=== PATIENT | female | born 1935 | race Caucasian/White ===

== ENCOUNTER → 2017-04-09 | Outpatient (CLI) | payer MEDICARE, SELFPAY | PROVIDERS: Family Provider Family Medicine; Visit Provider Family Medicine | DX: M25.551 Pain in right hip (principal); M25.552 Pain in left hip | CPT/HCPCS: 73502 ==

== ENCOUNTER 2017-09-29 16:20 | Observation (INO) | payer MEDICARE, MEDICAID, SELFPAY ==
--- NOTE | 2017-09-29 15:31 | XR_ITS ---
XR hip RT 2-3V w/pelvis HISTORY: Posttraumatic pain ITS.REASON: FALL,RT LEG INJURY ORDERING PHYSICIAN: Jhon Mercado MD PATIENT AGE: 81 years COMPARISON: 04/09/2017 FINDINGS: There is an acute nondisplaced fracture involving the anterolateral aspect of the right greater trochanter. This is only well seen on the abduction on view. There is a bone plate present along the proximal aspect of the femur with prior fusion of the lumbosacral junction and extensive vascular calcification with a stent in the right SFA. In addition, there are old fractures of left superior and inferior pubic ramus. IMPRESSION: 1. Nondisplaced avulsion fracture of the right greater trochanter. Consider CT for further evaluation to determine the exact extent of the fracture and to exclude femoral neck involvement. 2. Old left superior and inferior pubic rami fractures
--- NOTE | 2017-09-29 15:31 | XR_ITS ---
XR tibia fibula RT 2V CLINICAL INDICATION: Pain following injury ITS.REASON: FALL,RT LEG INJURY ORDERING PHYSICIAN: Jhon Mercado MD PATIENT AGE: 81 years Comparison: None FINDINGS: There is a total knee prosthesis present. Mottled density involves the shaft of the tibia and may be postsurgical in nature. No acute fracture or dislocation evident. IMPRESSION: Prior total knee replacement with mottled density of the mid shaft of the tibia No acute fracture
[2017-09-29 16:43] VITALS: BMI 16.5
--- NOTE | 2017-09-29 17:28 | XR_ITS ---
XR chest portable HISTORY: History of pneumonia ITS.REASON: preop hip fx ORDERING PHYSICIAN: Jhon Mercado MD PATIENT AGE: 81 years COMPARISON: 12/17/2016 FINDINGS: Borderline cardiomegaly without failure. There is increased density in the right paratracheal region. This malalignment due to vascular ectasia however, a paratracheal mass is also considered. There is also a rounded area of increased density in the right lung base. Pulmonary mass cannot be excluded in the CP angle. Chest CT may be of further value. The remaining lungs are clear with chronic change. IMPRESSION: Possible pulmonary mass in the right lung base with vascular ectasia in the right paratracheal region versus paratracheal mass
--- NOTE | 2017-09-29 17:43 | HMH.ACPN2 ---
Internal Medicine - PN: Subj *Date: 09/29/17 *Time: 17:43 Interval history: This is a brief admission note on Hali Banuelos. Ms. Banuelos is an 81-year-old white female who was brought to the office by her daughter today with an initial request that she be admitted to the hospital because her family could no longer care for her at home. Pertinent history is that she fell approximately a week ago when she slid from a chair in her kitchen and landed on the floor hitting her right hip. She did not initially think she had any injury because she had no pain. The next day she began having pain in the right hip in the groin area and also in her lower leg. She had refused to come to the doctor until her daughter, Radha, arrived from [place] today and brought her to the office. She apparently lives with 2 sons, one of which is mentally challenged and the other who is quite ill with some type of acute abdominal infection and is being admitted to the hospital today. She therefore has no one to take care of her at home. Radha is recuperating from knee surgery and not able to care for either. She was brought to the office in a wheelchair. After being assessed it was clear that she was very debilitated. She was unable to rise from the wheelchair and even with help could not bear weight due to pain in her right leg. She was sent for outpatient x-rays and found to have a nondisplaced fracture of the right greater trochanter. She is being admitted at this time for further evaluation and orthopedic consultation. Exam I & O for Last 24 hours: Intake & Output 09/27/17 09/28/17 09/29/17 09/30/17 11:59 11:59 11:59 11:59 Weight 102 lb 6 oz Narrative: On current examination in the hospital bed she is lying calmly and appears in no acute distress. Her color is normal. She is oriented ?3. Chest reveals coarse breath sounds with a few rhonchi. No wheezes. Breath sounds are generally diminished. Heart is regular. Abdomen soft and nondistended with no unusual masses or tenderness. Lower extremities show trace pretibial edema. There is tenderness over the right greater trochanter. There is pain with movement of the right hip. Assessment and Plan (1) Closed right hip fracture Current visit: Yes Status: Acute Category: Medical Code(s): S72.001A - Fracture of unspecified part of neck of right femur, initial encounter for closed fracture (2) COPD (chronic obstructive pulmonary disease) Current visit: Yes Status: Acute Category: Medical Code(s): J44.9 - Chronic obstructive pulmonary disease, unspecified (3) Hypothyroidism Current visit: Yes Status: Acute Category: Medical Code(s): E03.9 - Hypothyroidism, unspecified (4) HBP (high blood pressure) Current visit: Yes Status: Acute Category: Medical Code(s): I10 - Essential (primary) hypertension (5) Hyperlipidemia Current visit: Yes Status: Acute Category: Medical Code(s): E78.5 - Hyperlipidemia, unspecified (6) Generalized osteoarthritis Current visit: Yes Status: Acute Category: Medical Code(s): M15.9 - Polyosteoarthritis, unspecified (7) Tobacco abuse Current visit: Yes Status: Acute Category: Medical Code(s): Z72.0 - Tobacco use (8) GERD (gastroesophageal reflux disease) Current visit: Yes Status: Acute Category: Medical Code(s): K21.9 - Gastro-esophageal reflux disease without esophagitis (9) PAD (peripheral artery disease) Current visit: Yes Status: Acute Category: Medical Code(s): I73.9 - Peripheral vascular disease, unspecified (10) Overactive bladder Current visit: Yes Status: Acute Category: Medical Code(s): N32.81 - Overactive bladder - Assessment and plan all Dx Assessment and Plan for all problems:: She is being admitted at this time for pain control and orthopedic consultation. Will obtain routine preoperative labs, chest x-ray, and EKG. We will review her home medications when availabl
--- NOTE | 2017-09-29 17:51 | P.PN_ITS ---
Internal Medicine - PN: Subj *Date: 09/29/17 *Time: 17:43 Interval history: This is a brief admission note on Hali Banuelos. Ms. Banuelos is an 81-year-old white female who was brought to the office by her daughter today with an initial request that she be admitted to the hospital because her family could no longer care for her at home. Pertinent history is that she fell approximately a week ago when she slid from a chair in her kitchen and landed on the floor hitting her right hip. She did not initially think she had any injury because she had no pain. The next day she began having pain in the right hip in the groin area and also in her lower leg. She had refused to come to the doctor until her daughter, Radha, arrived from [place] today and brought her to the office. She apparently lives with 2 sons, one of which is mentally challenged and the other who is quite ill with some type of acute abdominal infection and is being admitted to the hospital today. She therefore has no one to take care of her at home. Radha is recuperating from knee surgery and not able to care for either. She was brought to the office in a wheelchair. After being assessed it was clear that she was very debilitated. She was unable to rise from the wheelchair and even with help could not bear weight due to pain in her right leg. She was sent for outpatient x-rays and found to have a nondisplaced fracture of the right greater trochanter. She is being admitted at this time for further evaluation and orthopedic consultation. Exam I & O for Last 24 hours: Intake & Output 09/27/17 09/28/17 09/29/17 09/30/17 11:59 11:59 11:59 11:59 Weight 102 lb 6 oz Narrative: On current examination in the hospital bed she is lying calmly and appears in no acute distress. Her color is normal. She is oriented ?3. Chest reveals coarse breath sounds with a few rhonchi. No wheezes. Breath sounds are generally diminished. Heart is regular. Abdomen soft and nondistended with no unusual masses or tenderness. Lower extremities show trace pretibial edema. There is tenderness over the right greater trochanter. There is pain with movement of the right hip. Assessment and Plan (1) Closed right hip fracture Current visit: Yes Status: Acute Category: Medical Code(s): S72.001A - Fracture of unspecified part of neck of right femur, initial encounter for closed fracture (2) COPD (chronic obstructive pulmonary disease) Current visit: Yes Status: Acute Category: Medical Code(s): J44.9 - Chronic obstructive pulmonary disease, unspecified (3) Hypothyroidism Current visit: Yes Status: Acute Category: Medical Code(s): E03.9 - Hypothyroidism, unspecified (4) HBP (high blood pressure) Current visit: Yes Status: Acute Category: Medical Code(s): I10 - Essential (primary) hypertension (5) Hyperlipidemia Current visit: Yes Status: Acute Category: Medical Code(s): E78.5 - Hyperlipidemia, unspecified (6) Generalized osteoarthritis Current visit: Yes Status: Acute Category: Medical Code(s): M15.9 - Polyosteoarthritis, unspecified (7) Tobacco abuse Current visit: Yes Status: Acute Category: Medical Code(s): Z72.0 - Tobacco use (8) GERD (gastroesophageal reflux disease) Current visit: Yes Status: Acute Category: Medical Code(s): K21.9 - Gastro -esophageal reflux disease without esophagitis (9) PAD (peripheral artery disease) Current visit: Yes Status: Acute Category: Medical Code(s): I73.9 - Peripheral vascular disease, unspecified (10) Overactive bladder
--- NOTE | 2017-09-29 17:58 | CT_ITS ---
CT hip RT wo con HISTORY: Right hip pain following injury, abnormal radiograph Evaluate right hip fracture or possible femoral neck involvement, ITS.REASON: right hip fracture ORDERING PHYSICIAN: Jhon Mercado MD PATIENT AGE: 81 years TECHNIQUE: Axial images are obtained without contrast. Sagittal and coronal reformatted images are reviewed as well. All CT scans at the facility use one or more dose reduction, viz: automated exposure control; ma/kV adjustment per patient size (including targeted exams where dose is matched to indication; i.e. head); or iterative reconstruction technique. FINDINGS: There is a nondisplaced comminuted fracture of the right greater trochanter. The fracture extends from the inferior aspect of the proximal femoral shaft laterally and posteriorly to the base of the greater trochanter superiorly but does not appear to extend into the neck of the femur nor does it extend to the lesser trochanter. Small cortical cystic areas present involving the femoral neck superiorly at 4 mm. There are old fractures of left superior and inferior pubic rami. There is diffuse osteopenia. Prior ORIF right femoral shaft with bone plate present at artifact. Arterial graft present in the right SFA. IMPRESSION: Nondisplaced comminuted fracture of the right greater trochanter without obvious extension into the femoral neck and without extension to the lesser trochanter. IMPRESSION: IMPRESSION:
[2017-09-29 18:09] LABS: Basophils # 0.1 K/mm3 (0-0.2); Basophils % 1.1 % (0.1-2.0); Eosinophils # 0.4 K/mm3 (0.0-0.4); Eosinophils % 6.4 % (0.1-12.0); Hematocrit 36.4 % (37.0-47.0); Hemoglobin 11.6 g/dL (12.2-16.2); Lymphocytes # 1.5 K/mm3 (0.7-4.5); Lymphocytes % 26.1 K/mm3 (10-50); Mean Corpuscular HGB Conc 31.8 g/dL (31.8-35.4); Mean Corpuscular Hemoglobin 26.7 pg (27.0-31.2); Mean Corpuscular Volume 83.8 fl (81-99); Mean Platelet Volume 7.9 fl (7.4-10.4); Monocytes # 0.4 K/mm3 (0.1-1.0); Monocytes % 7.2 % (1.7-9.3); Neutrophils # 3.5 K/mm3 (1.8-7.8); Neutrophils % 59.4 % (37.0-80.0); Platelet Count 372 K/mm3 (142-424); Red Blood Count 4.34 M/mm3 (4.20-5.40); Red Cell Distribution Width 13.6 % (11.5-17.5); White Blood Count 5.9 K/mm3 (4.8-10.8)
--- NOTE | 2017-09-29 18:12 | PC.NURSE ---
ASW/ASUW TACTICAL [employer] CONTROLLER SURGEON (ORTHO) PAGED AT THIS TIME
--- NOTE | 2017-09-29 18:14 | PC.NURSE ---
SPOKED TO DR. HADDAD AT THIS TIME. AGREED WITH DR. BRITO THAT PT CAN BE SEEN IN THE MORNING FOR CONSULT
[2017-09-29 18:18] LABS: Prothrombin Time 10.3 seconds (9.4-11.8)
[2017-09-29 18:19] LABS: Activated Partial Thrombo Time 30.3 seconds (23.6-34.0); INR 1.02 (0.9-1.1); Prothrombin Time 10.5 seconds (9.4-11.8)
[2017-09-29 18:24] LABS: Alanine Aminotransferase 19 U/L (12-78); Albumin Level 3.5 gm/dL (3.4-5.0); Alkaline Phosphatase 102 U/L (46-116); Aspartate Amino Transferase 16 U/L (15-37); Bilirubin,Total 0.5 mg/dL (0.2-1.0); Blood Urea Nitrogen 19 mg/dL (7-18); Calcium 9.3 mg/dL (8.5-10.1); Carbon Dioxide 27 mmol/L (21.0-32.0); Chloride 103 mmol/L (98-107); Creatinine Clearance Estimated 30 mL/min (0-300); Creatinine,Serum 1.06 mg/dL (0.55-1.02); Estimated Glomerular Filt Rate 50 ml/min (>60); GFR (African American) 60 ML/MIN (>60); Globulin 3.6 gm/dl (1.3-3.2); Glucose 112 mg/dL (74-106); Sodium 139 mmol/L (136-145); Total Protein,Serum 7.1 gm/dL (6.4-8.2)
--- NOTE | 2017-09-29 19:01 | PC.NURSE ---
PATIENT ALERT X3, LUNGS NOTED TO HAVE DIMINISHED BASES, BOWELS WNL, PATIENT INCONTINENT AND REQUIRES BRIEFS. IV IN THE RIGHT FOREARM. CONSULT WITH ORTHO IN THE MORNING. PATIENT CURRENTLY HAVING 10/10 COMPLAINTS OF PAIN IN LEGS. MEDICATION PER JUN. PATIENT WENT DOWN TO HAVE A CT OF HER RIGHT HIP THIS EVENING. SHE ATE AND DRANK WELL FOR DINNER. . WILL CONTINUE TO MONITOR.
[2017-09-29 19:40] VITALS: BP 129/51; PULSE 65; RESP 20; TEMP 36.7; O2SAT 97
[2017-09-30 03:45] VITALS: BP 177/61; PULSE 71; RESP 16; TEMP 36.8; O2SAT 96
--- NOTE | 2017-09-30 03:52 | PC.NURSE ---
PT HAS BEEN RESTLESS THIS SHIFT. SHE HAS C/O CRAMPING TO BLE. MD NOTIFIED OF PT CONDITION. MEDICATION ADMIN PER MD ORDER/JUN. PT HAS ATTEMPTED MULTIPLE TIMES TO GET UP. SAFETY MEASURES WERE REINFORCED AND EDUCATION PROVIDED. UPON ASSESSMENT. (R) HIP WAS NOTED TO HAVE BRUISING. PT HAS NOT C/O DISCOMFORT TO (R) HIP. IT WAS ALSO NOTED THAT PT HAS A SMALL AREA TO COCCYX ALONG WITH MULTIPLE SCABS TO BLE. EDEMA NOTED TO BLE. 2+ TO RLE. MED RX OBTAINED. PT FAMILY BROUGHT MED LIST AND MED BOTTLES IN. PT WAS NOTED TO BE ON BP MEDICATION. BP WAS NOTED TO BE ELEVATED THIS SHIFT. NO OTHER CONCERNS AT THIS TIME. WILL CONTIUE TO MONITOR.
--- NOTE | 2017-09-30 07:39 | PC.NURSE ---
report given to derek doran
--- NOTE | 2017-09-30 07:57 | HMH.HP ---
*Admission Date: 09/29/17 <CummingsDaniaChrissy - 09/30/17 08:14> *Chief complaint: Right leg pain <Chrissy Cummings 09/30/17 08:14> *History of present illness: Ms. Banuelos is an 81-year-old white female who was brought to the office of [facility] by her daughter with an initial request that her mother be admitted to the hospital because her family could no longer care for her at home. Pertinent history is that she fell approximately a week ago when she slid from a chair in her kitchen and landed on the floor hitting her right hip. She did not initially think she had any injury because she had no pain. The next day she began having pain in the right hip in the groin area and also in her lower leg. She had refused to come to the doctor until her daughter, Radha, arrived from [place] and brought her to the office. She apparently lives with 2 sons, one of which is mentally challenged and the other who is quite ill with some type of acute abdominal infection and is being admitted to the hospital today. She therefore has no one to take care of her at home. Radha is recuperating from knee surgery and not able to care for her either. She was brought to the office in a wheelchair. After being assessed it was clear that she was very debilitated. She was unable to rise from the wheelchair and even with help could not bear weight due to pain in her right leg. She was sent for outpatient x-rays and found to have a nondisplaced fracture of the right greater trochanter. She was then admitted for further evaluation and orthopedic consultation. <Chrissy Cummings 09/30/17 08:21> [facility] History Medical History: Reports:: Carotid Stenosis, Chronic Obstructive Pulmonary Disease (COPD), Depression, Gastroesophageal Reflux Disease(GERD), Heart Murmur, Hyperlipidemia, Hypertension, Osteoporosis, Peripheral Vascular Disease Denies:: Cancer, Diabetes Mellitus Type 1, Diabetes Mellitus Type 2, MRSA <Chrissy Cummings 09/30/17 08:14> Other Medical History: Reports: Arthritis, Cataracts (REMOVED 2007), Hypothyroidism <Chrissy Cummings 09/30/17 08:14> Laterality Cases: Bilateral: Total Knee Replacement <Chrissy Cummings 09/30/17 08:14> Other Surgeries: Yes: Cholecystectomy, Hysterectomy-Total, Other (BACK, KNEE) <Chrissy Cummings 09/30/17 08:14> Amputation: No <Chrissy Cummings 09/30/17 08:14> Fractures: Yes (PELVIS,) <Chrissy Cummings 09/30/17 08:14> Comment: Back surgery; right knee replacement; cholecystectomy; ORIF for fractured right femur 2006; bladder tack 2006; angioplasty and stents to right leg 2007; angioplasty and stents to left leg 2007; 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; right carotid stent 2016 <Chrissy Cummings 09/30/17 08:14> - *Social History Educational Level: Completed Grade School <Chrissy Cummings 09/30/17 08:14> Smoking Status: Current every day smoker <Chrissy Cummings 09/30/17 08:14> Tobacco Type: cigarettes <Chrissy Cummings 09/30/17 08:14> # Packs/Day (cigarettes): 1 <Chrissy Cummings 09/30/17 08:14> #Yrs smoked (if former smoker): 52 <Chrissy Cummings 09/30/17 08:14> Alcohol Intake: never <Chrissy Cummings 09/30/17 08:14> Occupational Status: retired <Chrissy Cummings 09/30/17 08:14> Housing: house <Chrissy Cummings 09/30/17 08:14> Household Members: friend(s) <Chrissy Cummings 09/30/17 08:14> - Psychiatric History Expresses thoughts of harming self/others: None <Chrissy Cummings 09/30/17 08:14> Suicide Plan Description: No Plan <Chrissy Cummings 09/30/17 08:14> Pschychiatric History:: Reports:: Anxiety, Depression <Chrissy Cummings 09/30/17 08:14> *Family Hx:: Cancer, Coronary Artery Disease, Thyroid Disorder <Chrissy Cummings 09/30/17 08:14> Review of Systems - Constitutional Reports weight loss, Denies fever(s), Denies headache(s) <Chrissy Cummings 09/30/17 08:14> Comments: States that she does not eat much <Chrissy Cummings - 09/30/17 08:14> - ENT Denies difficulty swallowing, Denies ear pain, Denies headache(s), Denies
[2017-09-30 07:59] VITALS: BP 169/76; PULSE 87; RESP 16; TEMP 36.7; O2SAT 97
--- NOTE | 2017-09-30 07:59 | P.CONPHA_ITS ---
[facility] Pharmacy VTE Monitoring - Patient Demographics Admission date: 09/29/17 Report Date: 09/30/17 Time: 07:59 Allergies/Adverse Reactions: Patient Allergies cephalexin [From Keflex] Allergy (Intermediate, Unverified 04/07/17 14:40) I-ITCHING acetaminophen [From PERCOCET] Allergy (Unknown, Unverified 04/07/17 14:40) Iodinated Contrast Media - Oral and [Iodinated Contrast Media - IV Dye] Allergy (Unknown, Unverified 04/07/17 14:40) oxycodone [From PERCOCET] Allergy (Unknown, Unverified 04/07/17 14:40) morphine Adverse Reaction (Intermediate, Unverified 04/07/17 14:40) LOSE MY MIND propoxyphene Adverse Reaction (Intermediate, Unverified 04/07/17 14:40) LOSE MY MIND Height: 1.68 m Weight: 46.437 kg Patient Problems: Current Active Problems Closed right hip fracture (Acute) COPD (chronic obstructive pulmonary disease) (Acute) Hypothyroidism (Acute) HBP (high blood pressure) (Acute) Hyperlipidemia (Acute) Generalized osteoarthritis (Acute) Tobacco abuse (Acute) GERD (gastroesophageal reflux disease) (Acute) PAD (peripheral artery disease) (Acute) Overactive bladder (Acute) - VTE Risk Labs: VTE Related Lab Results Hgb 11.6 g/dL (12.2-16.2) L 09/29/17 17:58 Hct 36.4 % (37.0-47.0) L 09/29/17 17:58 Plt Count 372 K/mm3 (142-424) 09/29/17 17:58 PT 10.3 seconds (9.4-11.8) 09/29/17 17:58 INR 1.00 (0.9-1.1) 09/29/17 17:58 APTT 30.3 seconds (23.6-34.0) 09/29/17 17:58 BUN 19 mg/dL (7-18) H 09/29/17 17:58 Creatinine 1.06 mg/dL (0.55-1.02) H 09/29/17 17:58 Estimated Creat Clear 30 mL/min (0-300) 09/29/17 17:58 Was VTE Risk Assessment Performed: Yes VTE Score: 3 VTE Risk Level: Low Risk Clinical Trial Participant: No - Prophylaxis VTE Prophylaxis Ordered?: Yes Types of VTE Prophylaxis: TEDS Knee High Location of Applied Device: Bilateral Lower Extremeties
[2017-09-30 08:00] VITALS: O2SAT 97
--- NOTE | 2017-09-30 08:01 | P.HP_ITS ---
*Admission Date: 09/29/17 <CummingsDaniaChrissy - 09/30/17 08:14> *Chief complaint: Right leg pain <Chrissy Cummings 09/30/17 08:14> *History of present illness: Ms. Banuelos is an 81-year-old white female who was brought to the office of [facility] by her daughter with an initial request that her mother be admitted to the hospital because her family could no longer care for her at home. Pertinent history is that she fell approximately a week ago when she slid from a chair in her kitchen and landed on the floor hitting her right hip. She did not initially think she had any injury because she had no pain. The next day she began having pain in the right hip in the groin area and also in her lower leg. She had refused to come to the doctor until her daughter, Radha, arrived from [place] and brought her to the office. She apparently lives with 2 sons, one of which is mentally challenged and the other who is quite ill with some type of acute abdominal infection and is being admitted to the hospital today. She therefore has no one to take care of her at home. Radha is recuperating from knee surgery and not able to care for her either. She was brought to the office in a wheelchair. After being assessed it was clear that she was very debilitated. She was unable to rise from the wheelchair and even with help could not bear weight due to pain in her right leg. She was sent for outpatient x-rays and found to have a nondisplaced fracture of the right greater trochanter. She was then admitted for further evaluation and orthopedic consultation. <Chrissy Cummings 09/30/17 08:21> [facility] History Medical History: Reports:: Carotid Stenosis, Chronic Obstructive Pulmonary Disease (COPD), Depression, Gastroesophageal Reflux Disease(GERD), Heart Murmur , Hyperlipidemia, Hypertension, Osteoporosis, Peripheral Vascular Disease Denies:: Cancer, Diabetes Mellitus Type 1, Diabetes Mellitus Type 2, MRSA < Chrissy Cummings 09/30/17 08:14> Other Medical History: Reports: Arthritis, Cataracts (REMOVED 2007), Hypothyroidism <Chrissy Cummings 09/30/17 08:14> Laterality Cases: Bilateral: Total Knee Replacement <Chrissy Cummings 09/30/17 08:14> Other Surgeries: Yes: Cholecystectomy, Hysterectomy-Total, Other (BACK, KNEE) <Chrissy Cummings 09/30/17 08:14> Amputation: No <Chrissy Cummings 09/30/17 08:14> Fractures: Yes (PELVIS,) <Chrissy Cummings 09/30/17 08:14> Comment: Back surgery; right knee replacement; cholecystectomy; ORIF for fractured right femur 2006; bladder tack 2006; angioplasty and stents to right leg 2007; angioplasty and stents to left leg 2007; 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; right carotid stent 2016 <Chrissy Cummings 09/30/17 08:14> - *Social History Educational Level: Completed Grade School <Chrissy Cummings 09/30/17 08:14> Smoking Status: Current every day smoker <Chrissy Cummings 09/30/17 08:14> Tobacco Type: cigarettes <Chrissy Cummings 09/30/17 08:14> # Packs/Day (cigarettes): 1 <Chrissy Cummings 09/30/17 08:14> #Yrs smoked (if former smoker): 52 <Chrissy Cummings 09/30/17 08:14> Alcohol Intake: never <Chrissy Cummings 09/30/17 08:14> Occupational Status: retired <Chrissy Cummings 09/30/17 08:14> Housing: house <Chrissy Cummings 09/30/17 08:14> Household Members: friend(s) <Chrissy Cummings 09/30/17 08:14> - Psychiatric History Expresses thoughts of harming self/others: None <Chrissy Cummings 09/30/17 08: 14> Suicide Plan Description: No Plan <Chrissy Cummings 09/30/17 08:14> Pschychiatric History:: Reports:: Anxiety, Depression <Chrissy Cummings 08:14> *Family Hx:: Cancer, Coronary Artery Disease, Thyroid Disorder <Chrissy Cummings 09/30/17 08:14> Review of Systems - Constitu
--- NOTE | 2017-09-30 08:55 | CT_ITS ---
CT chest wo con HISTORY: Follow-up abnormal chest x-ray ITS.REASON: right lung mass on CXR ORDERING PHYSICIAN: Jhon Mercado MD PATIENT AGE: 81 years COMPARISON: 09/29/2017 Technique: Axial images obtained. Sagittal and coronal reformatted images are also generated and reviewed. All CT scans at the facility use one or more dose reduction, viz: automated exposure control; ma/kV adjustment per patient size (including targeted exams where dose is matched to indication; i.e. head); or iterative reconstruction technique. FINDINGS: Atherosclerotic calcification involves the aorta and great vessels. Coronary artery calcifications are present as well. Mild cardiomegaly with minimal thickening of the pericardium. Scattered fibrotic changes are present in the lungs. The rounded opacity noted on the radiograph represents some minimal eventration of the diaphragm and not a pulmonary mass. There is some mild atelectasis in the left lower lobe and lingula. No lobar consolidation. No effusions. No suspicious nodules. Kyphosis noted of the thoracic spine with chronic wedge compression changes of T7. IMPRESSION: 1. No acute finding. 2. Rounded opacity right lung base represents focal eventration of the diaphragm and not a pulmonary mass. 3. Chronic changes
--- NOTE | 2017-09-30 09:34 | HMH.ORTHOCON ---
*Admission Date: 09/29/17 *Chief complaint: Right hip pain *History of present illness: Ms. Banuelos is an 81-year-old white female who was admitted through the emergency department. It is reported that she fell approximately 1 week ago and she states that she has been ambulating on the right lower extremity since then. She states that she has had pain in the hip walking but feels it was just by arthritis . Upon presentation to the emergency department, she was diagnosed as having a comminuted nondisplaced greater trochanteric hip fracture. Her past orthopedic history is significant and on the right side alone, she has had what appears to be a total knee arthroplasty followed by placement of a revision stem and a periprosthetic fracture. She has had a HERNAN plate by [employer] placed along the right lateral femoral cortex to treat the periprosthetic fracture. She is also had a lower lumbar fusion and has had fractures of her superior and inferior pubic rami on the right as well. Examination shows her to be alert cooperative and the patient easily answers questions. She complains only of right sided hip pain. Her pelvis is stable to compression and distraction. She is tender over the greater trochanter on the right. She does hold the right leg apparently somewhat externally rotated compared to the left but this is largely due to uncal/subtalar joint problems. There is a slight external rotation of the hip which seems to be generated at the joint itself. The right knee shows a well-healed orthopedic incision consistent with her knee surgeries. She does not seem to be unduly painful with internal and external rotation of the hip itself. X-rays are reviewed. The lateral is suboptimal but does not seem to show extension into the femoral neck. There is a comminuted greater trochanter fracture which is minimally displaced. An improved quality lateral would be helpful but CT scan has been performed which will give us needed information as well regarding the femoral neck. Neither I nor the radiologist see any confirmatory evidence of extention into the femoral neck. (There is a small cyst on the tension side of the femoral neck which appears inconsequential. I reviewed the CT scan personally with Dr. Johnson regarding the area of osteopenia just beneath the cyst.) IMPRESSION moderately comminuted essentially nondisplaced greater trochanteric fracture right hip. RECOMMENDATIONS touchdown weightbearing with use of a walker for approximately 6 weeks. If patient develops increasing pain, an MRI would be more sensitive as to revealing an occult femoral neck fracture. Otherwise recommend repeating plain films of the hip in approximately 2 weeks. We will be happy to follow the patient here in clinic. Review of Systems - *Neurologic Denies dizziness, Denies headache(s) [facility] History Medical History: Reports:: Anxiety, Carotid Stenosis, Chronic Obstructive Pulmonary Disease (COPD), Depression, Gastroesophageal Reflux Disease(GERD), Heart Murmur, Hyperlipidemia, Hypertension, Osteoporosis, Peripheral Vascular Disease Denies:: Cancer, Diabetes Mellitus Type 1, Diabetes Mellitus Type 2, MRSA Other Medical History: Reports: Arthritis, Cataracts (REMOVED 2007), Hypothyroidism, Osteoporosis Laterality Cases: Bilateral: Total Knee Replacement Other Surgeries: Yes: Cholecystectomy, Hysterectomy-Total, Other (BACK, KNEE) Amputation: No Fractures: Yes (PELVIS,) - *Social History Educational Level: Completed Grade School Smoking Status: Current every day smoker Tobacco Type: cigarettes # Packs/Day (cigarettes): 1 #Yrs smoked (if former smoker): 52 Alcohol Intake: never Occupational Status: retired Housing: house Household Members: friend(s) - Psychiatric History Expresses thoughts of harming self/others: None Suicide Plan Description: No Plan Pschychiatric History:: Reports:: Anxiety, Depression *Family Hx:: Cancer, Coronary Artery Disease, Thyroid Disorder Me
--- NOTE | 2017-09-30 10:01 | P.CONS_ITS ---
*Admission Date: 09/29/17 *Chief complaint: Right hip pain *History of present illness: Ms. Banuelos is an 81-year-old white female who was admitted through the emergency department. It is reported that she fell approximately 1 week ago and she states that she has been ambulating on the right lower extremity since then. She states that she has had pain in the hip walking but feels it was just by arthritis . Upon presentation to the emergency department, she was diagnosed as having a comminuted nondisplaced greater trochanteric hip fracture. Her past orthopedic history is significant and on the right side alone, she has had what appears to be a total knee arthroplasty followed by placement of a revision stem and a periprosthetic fracture. She has had a HERNAN plate by [employer] placed along the right lateral femoral cortex to treat the periprosthetic fracture. She is also had a lower lumbar fusion and has had fractures of her superior and inferior pubic rami on the right as well. Examination shows her to be alert cooperative and the patient easily answers questions. She complains only of right sided hip pain. Her pelvis is stable to compression and distraction. She is tender over the greater trochanter on the right. She does hold the right leg apparently somewhat externally rotated compared to the left but this is largely due to uncal/subtalar joint problems. There is a slight external rotation of the hip which seems to be generated at the joint itself. The right knee shows a well- healed orthopedic incision consistent with her knee surgeries. She does not seem to be unduly painful with internal and external rotation of the hip itself. X-rays are reviewed. The lateral is suboptimal but does not seem to show extension into the femoral neck. There is a comminuted greater trochanter fracture which is minimally displaced. An improved quality lateral would be helpful but CT scan has been performed which will give us needed information as well regarding the femoral neck. Neither I nor the radiologist see any confirmatory evidence of extention into the femoral neck. (There is a small cyst on the tension side of the femoral neck which appears inconsequential. I reviewed the CT scan personally with Dr. Johnson regarding the area of osteopenia just beneath the cyst.) IMPRESSION moderately comminuted essentially nondisplaced greater trochanteric fracture right hip. RECOMMENDATIONS touchdown weightbearing with use of a walker for approximately 6 weeks. If patient develops increasing pain, an MRI would be more sensitive as to revealing an occult femoral neck fracture. Otherwise recommend repeating plain films of the hip in approximately 2 weeks. We will be happy to follow the patient here in clinic. Review of Systems - *Neurologic Denies dizziness, Denies headache(s) [facility] History Medical History: Reports:: Anxiety, Carotid Stenosis, Chronic Obstructive Pulmonary Disease (COPD), Depression, Gastroesophageal Reflux Disease(GERD), Heart Murmur, Hyperlipidemia, Hypertension, Osteoporosis, Peripheral Vascular Disease Denies:: Cancer, Diabetes Mellitus Type 1, Diabetes Mellitus Type 2, MRSA Other Medical History: Reports: Arthritis, Cataracts (REMOVED 2007), Hypothyroidism, Osteoporosis Laterality Cases: Bilateral: Total Knee Replacement Other Surgeries: Yes: Cholecystectomy, Hysterectomy-Total, Other (BACK, KNEE) Amputation: No Fractures: Yes (PELVIS,) - *Social History Educational Level: Completed Grade School Smoking Status: Current every day smoker Tobacco Type: cigarettes # Packs/Day (cigarettes): 1 #Yrs smoked (if former smoker): 52 Alcohol Intake: never Occupational Status: ret
--- NOTE | 2017-09-30 11:48 | SW/DCPLANNER ---
I have spoke with this patient regarding discharge plans and the need for PT once ready for discharge. Patient stated that she lives at home with her handicap son whom assist in caring for patient. Patient stated that her other son is currently staying with handicap son while she is in the hospital. Patient stated that she agrees that she could benefit from PT at a skilled facility once ready for discharge and did not have a preference on where she went and agreed to out of town if needed. Patients insurance is NOT in network with [facility]. Patient information has been faxed to [facility] and [facility] (daughter lives in [place] and [place] would be a good location). I will follow up with facilities and patient this afternoon. Discharge date is unknown at this time.
[2017-09-30 14:16] VITALS: BMI 16.5
[2017-09-30 16:00] VITALS: BP 128/55; PULSE 61; RESP 18; TEMP 36.8; O2SAT 94
--- NOTE | 2017-09-30 16:01 | SW/DCPLANNER ---
This patient has been accepted to [facility] and patients family agrees with this facility. I have informed Dr Mercado of this situation and that family agrees. Patient will go to [facility] in [place] for physical therapy and according to patient and family the plan is to be short term.
--- NOTE | 2017-09-30 18:08 | PC.NURSE ---
PATIENT ABLE TO STATE HER NAME AND WITH PLACE BUT HAS SOME CONFUSION WITH TIME. SHE CONTINUES TO REPEAT HERSELF. ALSO BELIEVES THAT SHE HAS NOT RECEIVED MEDICATIONS ALL DAY. RN REASSURED DAUGHTER AND PATIENT THAT SHE RECEIVED HER MEDICATIONS. RN LUNGS NOTED TO HAVE WHEEZES AND BE DIMINISHED IN THE BASES. BOWELS WNL, . PATIENT HAS BEEN ON ROOM AIR ALL DAY AND SATS HAVE REMAIN WNL. EDUCATED TO LET RN KNOW WHEN SHE HAS TO URINATE SO THAT COLLECTION CAN BE SENT TO THE LAB. PATIENT HAS REPORTED SOME PAIN THROUGHOUT THE DAY BUT HAS BEEN MANAGED WITH MEDICATIONS. MEDICATIONS PER MAR HAVE BEEN TOLERATED WELL. WILL CONTINUE TO MONITOR.
--- NOTE | 2017-09-30 19:16 | PC.NURSE ---
report given to ayan
[2017-09-30 20:00] VITALS: BP 141/54; PULSE 66; RESP 20; TEMP 36.8; O2SAT 96
[2017-10-01 03:25] VITALS: BP 154/89; PULSE 58; RESP 16; TEMP 36.9; O2SAT 96
--- NOTE | 2017-10-01 03:29 | PC.NURSE ---
Pt has c/o pain 2 times this shift, medicated per MAR and repositioned to sit up in chair. Pt is A&Ox3 but does have some cognitive deficit with short term memory as she consistently asks the same staff repetitive questions of who are you , are you , do you live in town , why do I have leg cramps . Each time pt is answered, but then she will return back to the original question to the same staff moments later. Pt is forgetful to remain only toe-touching of right foot while ambulating, requires at least 1 person when up for instruction and guidance. Pt remains incontinent and utilizing briefs, unable to collect UA sample, have offered to toilet pt each q2 hr. Lung sound are clear but diminished bilaterally. Pulses are palpable to upper & lower extremities. BS active all 4 quad, abd is soft and non-tender. Will continue to monitor.
--- NOTE | 2017-10-01 06:58 | PC.NURSE ---
Report given to Golden Pineda RN.
--- NOTE | 2017-10-01 07:39 | PC.NURSE ---
REPORT GIVEN TO Erika RUELAS W/C
[2017-10-01 08:00] VITALS: BP 151/66; PULSE 53; RESP 16; TEMP 36.9; O2SAT 93
--- NOTE | 2017-10-01 08:48 | HMH.DCSUM ---
General - General Admission date:: 09/29/17 <Jhon Mercado - 10/01/17 14:07> 09/29/17 <VicTeresita - 10/01/17 08:48> Discharge date: 10/01/17 <VicTeresita - 10/01/17 08:48> HPI HPI: Ms. Banuelos is an 81-year-old white female who was brought to the office of A by her daughter with an initial request that her mother be admitted to the hospital because her family could no longer care for her at home. Pertinent history was that she fell approximately a week ago when she slid from a chair in her kitchen and landed on the floor hitting her right hip. She did not initially think she had any injury because she had no pain. The following day, she began having pain in the right hip in the groin area and also in her lower leg. She had refused to come to the doctor until her daughter, Radha, arrived from [place] and brought her to the office. She apparently was living with two sons, one of which is mentally challenged and the other who was quite ill with some type of acute abdominal infection and was being admitted to the hospital. She therefore had no one to take care of her at home as Radha was recuperating from knee surgery and not able to care for her either. She was brought to the office of A in a wheelchair. After being assessed it was clear that she was very debilitated. She was unable to rise from the wheelchair and even with help could not bear weight due to pain in her right leg. She was sent for outpatient x-rays and found to have a nondisplaced fracture of the right greater trochanter. She was then admitted for further evaluation and orthopedic consultation. <Teresita Ho - 10/01/17 08:53> Hospital Course Hospital Course: The day following admission, Ms. Banuelos had rested well and experienced minimal pain. She was seen by the orthopedist and it was recommended that her fracture be treated conservatively. To further evaluate possible lung mass seen on CXR, she had a chest CT which showed some chronic changes with nothing acute and a rounded opacity in the right lung based which represented focal eventration of the diaphragm and not a pulmonary mass. By the morning of 10/01/17, she was felt to be stable for discharge to alf. <Teresita Ho 10/01/17 09:03> Objective Vital signs: Temp Pulse Resp BP Pulse Ox 98.5 F 53 L 16 151/66 93 L 10/01/17 08:00 10/01/17 08:00 10/01/17 08:00 10/01/17 08:00 10/01/17 08:00 <Jhon Mercado 10/01/17 14:07> Temp Pulse Resp BP Pulse Ox 98.5 F 53 L 16 151/66 93 L 10/01/17 08:00 10/01/17 08:00 10/01/17 08:00 10/01/17 08:00 10/01/17 08:00 <Teresita Ho 10/01/17 08:48> no acute distress <Teresita Ho 10/01/17 09:03> - *Routine HEENT Exam Head: Present: normocephalic, atraumatic <VicTeresita oakes 10/01/17 09:03> - *Routine Respiratory Exam Present: CTA bilaterally <Teresita Ho 10/01/17 09:03> - *Routine Cardiovascular Exam Present: RRR, murmur <Cameron Hoa 10/01/17 09:03> - *Routine Abdominal Exam Present: soft, normoactive bowel sounds. Absent: tenderness, distended, rebound, guarding, organomegaly, mass <Teresita Ho 10/01/17 09:03> - *Routine Extremities Exam Present: edema, calf tenderness <Cameron Hoa 10/01/17 09:03> Comments: right LE with ROSA hose in place, external rotation noted <Teresita Ho 10/01/17 09:03> - *Routine Neurological Exam Present: oriented X3, normal speech <Cameron Hoa 10/01/17 09:03> DS: Diagnosis - Discharge Diagnosis (1) Closed right hip fracture Status: Acute (2) COPD (chronic obstructive pulmonary disease) Status: Acute (3) Hypothyroidism Status: Acute (4) HBP (high blood pressure) Status: Acute (5) Hyperlipidemia Status: Acute (6) Generalized osteoarthritis Status: Acute (7) Tobacco abuse Status: Acute (8) GERD (gastroesophageal reflux disease) Status: Acute (9) PAD (peripheral artery disease) Stat
[2017-10-01 15:35] VITALS: BP 121/45; PULSE 68; RESP 18; TEMP 36.6; O2SAT 98
--- NOTE | 2017-10-01 18:02 | PC.NURSE ---
Report called to Jessica at [facility].
--- NOTE | 2017-10-01 19:45 | PC.NURSE ---
Pt daughter came out of room and requested to speak to someone in charge about her mothers transfer. This nurse came to speak to pt daughter, she was upset that the ambulance had not been here yet to transport her mother, housefellow came at this time, charge nurse Erika Rodriguez and catalyst supervisor Sal Streeter, spoke to daughter and informed her that one truck was out on a run and the other cannot make transfers at this time until the other comes back.
--- NOTE | 2017-10-01 20:25 | PC.NURSE ---
Pt left via ambulance at this time
== END 2017-10-01 19:01 ==
LOC: 2ND 09-30 07:12
PROVIDERS: Admitting Provider Family Medicine; PCP Family Medicine; Visit Provider Family Medicine
DX: S72.114A Nondisplaced fracture of greater trochanter of right femur, initial encounter for closed fracture (principal); R29.6 Repeated falls; N32.81 Overactive bladder; Z72.0 Tobacco use; I10 Essential (primary) hypertension; E03.9 Hypothyroidism, unspecified; E78.5 Hyperlipidemia, unspecified; J44.9 Chronic obstructive pulmonary disease, unspecified; M81.0 Age-related osteoporosis without current pathological fracture
CPT/HCPCS: 36415; 71045; 71250; 73502; 73590; 73700; 80053; 85025; 85610; 85730; 93005; 97110; 97116; 97162; 97530; G0378

== ENCOUNTER → 2017-10-15 14:35 | Outpatient (CLI) | payer MEDICARE, MEDICAID, SELFPAY ==
--- NOTE | 2017-10-15 14:38 | XR_ITS ---
XR hip RT 2-3V w/pelvis HISTORY: Follow-up fracture ITS.REASON: RT TROCHANTERIC HIP FRACTURE ORDERING PHYSICIAN: Evangelist Rodriguez MD PATIENT AGE: 82 years COMPARISON: 09/29/2017 FINDINGS: Nondisplaced fracture at the base of the greater trochanter is once again noted. Fracture line is less apparent suggestion of some minimal callus formation laterally. No dislocation apparent. Prior ORIF of the mid and distal femur with a long lateral bone plate with multiple screws noted with prior total knee replacement and right femoral artery stent in place. There is old left superior and inferior pubic ramus fracture with postsurgical changes of the lumbosacral junction. IMPRESSION: 1. Healing fracture at the base of the greater trochanter 2. Post surgical changes as described above
== END ==
PROVIDERS: Visit Provider Orthopaedic Surgery
DX: S72.109 Unspecified trochanteric fracture of unspecified femur (principal)
CPT/HCPCS: 73502

== ENCOUNTER → 2017-11-05 11:06 | Outpatient (CLI) | payer MEDICARE, MEDICAID, SELFPAY ==
--- NOTE | 2017-11-05 11:12 | XR_ITS ---
XR hip RT 2-3V w/pelvis Ordering Physician: Evangelist Rodriguez MD Patient Age: 82 years: Female HISTORY: ITS.REASON: Trochanteric hip fracture TECHNIQUE: AP and crosstable lateral right hip COMPARISON : 10/15/2017 right hip FINDINGS Healing fracture of the greater trochanters again identified. Nondisplaced vertical fracture here. The fracture line is slightly more apparent on today's projection but this may reflect some resorption along the fracture zone. No discrete displacement. The right femoral head and neck are intact. The long-standing metallic sideplate I side plate applied to femoral shaft partially imaged. Appears stable.. Extensive vascular endograft stent seen at right superficial femoral artery extending to the common femoral artery and origin of profunda femoris. Diffuse demineralization . IMPRESSION: Slight progression of healing at the greater trochanter fracture.
== END ==
PROVIDERS: PCP Internal Medicine; Visit Provider Orthopaedic Surgery
DX: S72.101A Unspecified trochanteric fracture of right femur, initial encounter for closed fracture (principal)
CPT/HCPCS: 73502

== ENCOUNTER → 2018-01-14 13:16 | Outpatient (CLI) | payer MEDICARE, MEDICAID, SELFPAY ==
--- NOTE | 2018-01-14 13:18 | XR_ITS ---
XR hip RT 2-3V w/pelvis HISTORY: Follow-up fracture ITS.REASON: RT HIP GREATER TROCHANTER FX ORDERING PHYSICIAN: Milind Hernandez MD PATIENT AGE: 82 years COMPARISON: 11/05/2017 FINDINGS: Nondisplaced fracture of the right greater trochanter base is once again noted. Fracture line is less apparent consistent with healing. There is a bone plate over the mid shaft of the femur stabilizing an old fracture. Prior surgery with fusion of L5-S1 and S1-S2. Right femoral artery stent is present is vascular calcification noted. IMPRESSION: Healing nondisplaced fracture of the right greater trochanter
--- NOTE | 2018-01-14 13:24 | XR_ITS ---
XR DEXA axial skeleton HISTORY: ITS.REASON: CLOSED FX HIP, POST MENOPAUSAL ORDERING PHYSICIAN: Milind Hernandez MD PATIENT AGE: 82 years COMPARISON: None FINDINGS: The BMD measured at the left femor total is 0.850 g/cm squared with a T score of -1.2. This is considered Osteopenic according to the World Health Organization criteria. Fracture risk is Moderate. Treatment is advised. The L1 L4 density has been scored 0.0 IMPRESSION: Osteopenia with moderate fracture risk. Treatment suggested. Recommend follow-up exam December 2019
--- NOTE | 2018-01-14 13:27 | XR_ITS ---
XR knee LT 3V HISTORY: ITS.REASON: LEFT LOWER LEG PAIN ORDERING PHYSICIAN: Milind Hernandez MD PATIENT AGE: 82 years COMPARISON: None FINDINGS: There is moderate to severe osteoarthritic changes of the lateral compartment and patellofemoral joint. No fracture or dislocation. Vascular calcification is present with a vascular stent in the mid SFA. No lytic or blastic change. IMPRESSION: Moderate to severe osteoarthritis
--- NOTE | 2018-01-14 13:27 | XR_ITS ---
XR tibia fibula LT 2V CLINICAL INDICATION: ITS.REASON: LEFT LOWER LEG PAIN ORDERING PHYSICIAN: Milind Hernandez MD PATIENT AGE: 82 years Comparison: None FINDINGS: No fracture or dislocation. Small focal area of decreased density involving the mid shaft fibula. This is nonspecific and Patti related to an area of heterogeneous as opposed to lytic lesion. Follow-up may confirm. There is vascular calcification. IMPRESSION: No definite acute finding. Lucency in the mid fibula nonspecific. Consider follow-up stability
--- NOTE | 2018-01-14 13:27 | XR_ITS ---
XR ankle LT min 3V HISTORY: Left ankle pain ITS.REASON: LEFT LOWER LEG PAIN ORDERING PHYSICIAN: Milind Hernandez MD PATIENT AGE: 82 years Comparison: None FINDINGS: The ankle joint has an unremarkable appearance. There is pes planus with degenerative changes of the mid foot. There is a small calcaneal spur. No fracture or dislocation. No lytic or blastic change. IMPRESSION: Negative ankle with osteoarthritis of the midfoot and pes planus
[2018-01-14 15:43] LABS: Basophils # 0.1 K/mm3 (0-0.2); Basophils % 0.7 % (0.1-2.0); Eosinophils # 0.3 K/mm3 (0.0-0.4); Eosinophils % 4.2 % (0.1-12.0); Hematocrit 31.5 % (37.0-47.0); Hemoglobin 10.2 g/dL (12.2-16.2); Lymphocytes # 1.2 K/mm3 (0.7-4.5); Lymphocytes % 16.6 K/mm3 (10-50); Mean Corpuscular HGB Conc 32.4 g/dL (31.8-35.4); Mean Corpuscular Hemoglobin 27.1 pg (27.0-31.2); Mean Corpuscular Volume 83.6 fl (81-99); Mean Platelet Volume 7.3 fl (7.4-10.4); Monocytes # 0.4 K/mm3 (0.1-1.0); Monocytes % 5.9 % (1.7-9.3); Neutrophils # 5.3 K/mm3 (1.8-7.8); Neutrophils % 72.5 % (37.0-80.0); Platelet Count 366 K/mm3 (142-424); Red Blood Count 3.77 M/mm3 (4.20-5.40); Red Cell Distribution Width 14.4 % (11.5-17.5); White Blood Count 7.3 K/mm3 (4.8-10.8)
[2018-01-14 18:05] LABS: Alanine Aminotransferase 16 U/L (12-78); Albumin Level 3.1 gm/dL (3.4-5.0); Albumin/Globulin Ratio 0.8 (1.1-1.8); Alkaline Phosphatase 106 U/L (46-116); Anion Gap 14.4 mEq/L (5-15); Aspartate Amino Transferase 9 U/L (15-37); Bilirubin,Total 0.4 mg/dL (0.2-1.0); Blood Urea Nitrogen 19 mg/dL (7-18); Calcium 8.6 mg/dL (8.5-10.1); Carbon Dioxide 25 mmol/L (21.0-32.0); Chloride 104 mmol/L (98-107); Creatinine,Serum 0.97 mg/dL (0.55-1.02); Estimated Glomerular Filt Rate 55 ml/min (>60); GFR (African American) 66 ML/MIN (>60); Globulin 3.8 gm/dl (1.3-3.2); Glucose 88 mg/dL (74-106); Lactate Dehydrogenase 192 U/L (82-234); Potassium 4.4 mmoL/L (3.5-5.1); Sodium 139 mmol/L (136-145); Total Protein,Serum 6.9 gm/dL (6.4-8.2)
[2018-01-18 16:17] LABS: Albumin 3.2 g/dL (2.9-4.4); Alpha-1-Globulin 0.3 g/dL (0.0-0.4); Alpha-2-Globulin 1.1 g/dL (0.4-1.0); Gamma Globulin 1.2 g/dL (0.4-1.8); Protein, Total 6.8 g/dL (6.0-8.5)
== END ==
PROVIDERS: PCP Family Medicine; Visit Provider Orthopaedic Surgery
DX: S72.001A Fracture of unspecified part of neck of right femur, initial encounter for closed fracture (principal); M89.9 Disorder of bone, unspecified
CPT/HCPCS: 36415; 73502; 73562; 73590; 73610; 77080; 80053; 83615; 84155; 84165; 85025; 86140

== ENCOUNTER → 2020-08-23 16:27 | Outpatient (CLI) | payer MEDICARE, MEDICAID, SELFPAY ==
--- NOTE | 2020-08-23 16:37 | XR_ITS ---
PROCEDURE: XR CHEST 2V CLINICAL HISTORY: COPD, UNSPECIFIED COMPARISON: CR CXR CHEST(2 VIEWS-NOT PORTABLE) from 06/27/2016 CR CXR CHEST(2 VIEWS-NOT PORTABLE) from 12/17/2016 CR [id number] XR chest portable from 09/29/[address] chest wo con from 09/30/2017 FINDINGS: The cardiomediastinal silhouette and pulmonary vascularity are within normal limits. The lungs are clear without infiltrates, suspicious nodules, or pleural effusions. Postsurgical changes lumbar spine. IMPRESSION: No acute findings. Dictated by: Martell Johnson MD 08/23/2020 17:32 Martell Johnson MD in [place] 08/23/2020 17:32
== END ==
PROVIDERS: PCP Family Medicine; Visit Provider Family Medicine
DX: J44.9 Chronic obstructive pulmonary disease, unspecified (principal)
CPT/HCPCS: 71046

== ENCOUNTER 2021-01-11 17:36 | Inpatient (IN) | payer MEDICARE, MEDICAID, SELFPAY ==
[2021-01-11 17:36] VITALS: BP 182/75; PULSE 102; RESP 36; TEMP 36.9; O2SAT 89; BMI 19.7
--- NOTE | 2021-01-11 17:37 | PC.NURSE ---
pt placed on 2L per NC at this time room air sat 89% will continue to monitor
--- NOTE | 2021-01-11 17:37 | XR_ITS ---
PROCEDURE INFORMATION: Exam: XR Chest Exam date and time: 01/11/2021 5:37 PM Age: 85 years old Clinical indication: Cough and shortness of breath; Patient HX: SOA, cough TECHNIQUE: Imaging protocol: XR of the chest. Views: 1 view. COMPARISON: CR XR CHEST 2V 08/23/2020 4:40 PM FINDINGS: Lungs: Similar findings of scarring or atelectasis in the right upper lobe medially. Mild bibasilar atelectasis. Hyperinflation again seen. Pleural spaces: No pleural effusion. No pneumothorax. Heart/Mediastinum: Unremarkable. No cardiomegaly. Bones/joints: Unremarkable. Other findings: Rotation. IMPRESSION: Scarring or atelectasis in the right upper lung zone medially is similar to September. This could potentially be due to an endobronchial lesion. It could be a projectional artifact. Consider follow-up PA and lateral in [address] if there is a high clinical concern.
--- NOTE | 2021-01-11 17:39 | PC.NURSE ---
notified rad and RT of orders on pt.
--- NOTE | 2021-01-11 17:44 | HMH.EDGENADL ---
ED Disposition Clinical Impression: Pneumonia, COPD (chronic obstructive pulmonary disease), CHF (congestive heart failure) Disposition: Admitted As Inpatient Condition on Discharge: Fair - Critical Care Critical Care Time: No Attestation: On 01/11/21, the high probability of a clinically significant, sudden or life threatening deterioration of the following system(s) required my full and direct attention, intervention and personal management. The time I documented below is in addition to time spent performing reported procedures but includes the following listed in this critical care notation. Medical Decision Making - Medical Records MR Comment: Chest x-ray shows right upper lobe infiltrate. Her EKG shows normal sinus rhythm. Left ventricular hypertrophy. Nonspecific ST changes. Troponin is 0.05 and BNP is 4390. She has a combination of right upper lobe pneumonia, chronic congestive heart failure, COPD. I asked the patient about the allergy to Keflex she said she does not recall any allergies to Keflex at all. Called Dr. Kuhn is on-call for Dr. Mercado and he agreed to admit the patient. We discussed the regiment of treatment with Rocephin and Levaquin and he agreed to proceed. - Gurpreet Inquiry Pt receiving controlled substance: No Gurpreet was queried for this patient: No Vital Signs: 01/11/21 17:36 01/11/21 17:57 01/11/21 20:32 Temperature 98.4 F Temperature Source Oral Pulse Rate 86 Pulse Rate [Right Radial] 102 H Respiratory Rate 36 H Blood Pressure [Right Arm] 182/75 H Blood Pressure Mean [Right Arm] 110 Blood Pressure Source [Right Arm] Automatic Cuff Blood Pressure Position [Right Arm] Sitting 02 Sat by Pulse Oximetry 89 L 94 L Oxygen Delivery Method Room Air Nasal Cannula Oxygen Flow Rate (LPM) 2 - Lab Data Lab Results 01/11/21 17:37: VBG pH 7.33, VBG pCO2 44.6, VBG pO2 62.1 H, VBG HCO3 23.1, VBG Total CO2 24.5, VBG O2 Saturation 89.9 H, VBG Base Excess -2.8 L 01/11/21 17:38: WBC 12.8 H, RBC 3.79 L, Hgb 11.9 L, Hct 32.6 L, MCV 85.8, MCH 31.5 H, MCHC 36.7 H, RDW 16.8, Plt Count 275, MPV 8.4, Neut % (Auto) 90.1 H, Lymph % (Auto) 5.9 L, [place] % (Auto) 3.6, Eos % (Auto) 0.0 L, Baso % (Auto) 0.4, Neut # (Auto) 11.5 H, Lymph # (Auto) 0.8, [place] # (Auto) 0.5, Eos # (Auto) 0.0, Baso # (Auto) 0.1, Total Counted 100, Neutrophils % (Manual) 89 H, Lymphocytes % (Manual) 3 L, Monocytes % (Manual) 7, Basophils % (Manual) 1.0, Platelet Estimate Normal, RBC Morphology Not Reportable 01/11/21 17:38: Sodium 138, Potassium 4.5, Chloride 102, Carbon Dioxide 26, Anion Gap 14.5, BUN 25 H, Creatinine 0.90, Estimated Creat Clear 35, Estimated GFR 59, Est GFR ( Amer) 72, Glucose 130 H, Calcium 8.9, Total Bilirubin 0.3, AST 27, ALT 16, Alkaline Phosphatase 94, Troponin I 0.05 H, Total Protein 7.3, Albumin 3.7, Globulin 3.6 H, Albumin/Globulin Ratio 1.0 L 01/11/21 17:38: NT-Pro-B Natriuret Pep 4390 H 01/11/21 17:39: SARS-CoV-2 (PCR) Not detected, Influenza A Untype (PCR) Not detected, Influenza Type B (PCR) Not detected 01/11/21 19:44: Lactate 0.9 Result diagrams: 01/11/21 17:38 01/11/21 17:38 Orders (Tests/Meds): ED MEDICATIONS Generic Name Dose Route Start Last Admin Trade Name Freq PRN Reason Stop Dose Admin Albuterol/Ipratropium 3 ml 01/11/21 19:45 01/11/21 20:31 Ipratropium/Albuterol 3 Ml Neb IH 02/10/21 19:44 3 ml Q1H ELENA Administration Levofloxacin/Dextrose 750 mg in 150 mls @ 100 mls/hr 01/11/21 19:45 01/11/21 19:34 Levofloxacin 750mg/150ml Premix IV 01/25/21 19:44 100 mls/hr Q24H ELENA Administration Ceftriaxone Sodium 1 gm/ 50 mls @ 100 mls/hr 01/11/21 19:45 Sodium Chloride IV 01/25/21 19:44 Q24H ELENA Ondansetron HCl 4 mg 01/11/21 19:36 Ondansetron 4mg/2ml Vial IV 02/10/21 19:35 Q8HP PRN Nausea Discontinued Medications Generic Name Dose Route Start Last Admin Trade Name Freq PRN Reason Stop Dose Admin Albuterol/Ipratrop
[2021-01-11 17:52] LABS: Basophils # 0.1 K/mm3 (0-0.2); Basophils % 0.4 % (0.1-2.0); Hematocrit 32.6 % (37.0-47.0); Hemoglobin 11.9 g/dL (12.2-16.2); Lymphocytes # 0.8 K/mm3 (0.7-4.5); Lymphocytes % 5.9 % (10-50); Mean Corpuscular HGB Conc 36.7 g/dL (31.8-35.4); Mean Corpuscular Hemoglobin 31.5 pg (27.0-31.2); Mean Corpuscular Volume 85.8 fl (81-99); Mean Platelet Volume 8.4 fl (7.4-10.4); Monocytes # 0.5 K/mm3 (0.1-1.0); Monocytes % 3.6 % (1.7-9.3); Neutrophils # 11.5 K/mm3 (1.8-7.8); Neutrophils % 90.1 % (37.0-80.0); Platelet Count 275 K/mm3 (142-424); Red Blood Count 3.79 M/mm3 (4.20-5.40); Red Cell Distribution Width 16.8 % (11.5-17.5); White Blood Count 12.8 K/mm3 (4.8-10.8)
--- NOTE | 2021-01-11 17:55 | ECG_ITS ---
APPROVED REPORT Exam: Resting ECG HR:96 bpm ECG Measurements Heart Rate 96 AXES MT 122 P 84 QRSd 86 QRS 59 QT 364 T 75 QTc 459 Conclusion Normal sinus rhythm with sinus arrhythmia Left ventricular hypertrophy with repolarization abnormality Abnormal ECG Electronically signed by : Chapito Byrne MD 01/13/2021 20:57:07
[2021-01-11 17:57] VITALS: O2SAT 94
[2021-01-11 17:59] LABS: MANUAL DIFFERENTIAL MANUAL DIFFERENTIAL (MANUAL DIFF)
[2021-01-11 18:02] LABS: Chloride 102 mmol/L (98-107); Potassium 4.5 mmoL/L (3.5-5.1); Sodium 138 mmol/L (136-145)
[2021-01-11 18:04] LABS: Blood Urea Nitrogen 25 mg/dl (7-17); Creatinine Clearance Estimated 35 mL/min (50-200); Estimated Glomerular Filt Rate 59 ml/min (>60); GFR (African American) 72 ML/MIN (>60)
[2021-01-11 18:05] LABS: Alanine Aminotransferase 16 U/L (12-78); Albumin Level 3.7 g/dl (3.5-5.0); Alkaline Phosphatase 94 U/L (38-126); Anion Gap 14.5 mEq/L (5-15); Aspartate Amino Transferase 27 U/L (14-36); Bilirubin,Total 0.3 mg/dl (0.2-1.3); Calcium 8.9 mg/dl (8.4-10.2); Carbon Dioxide 26 mmol/L (22.0-30.0); Globulin 3.6 g/dL (1.3-3.2); Glucose 130 mg/dl (74-100); Total Protein,Serum 7.3 g/dl (6.3-8.2)
[2021-01-11 18:06] LABS: VBG Base Excess -2.8 mmol/L (-2.4-2.3); VBG HCO3 23.1 mmol/L (23-30); VBG Oxygen Saturation 89.9 % (50-70); VBG PCO2 44.6 mmol/L (35-51); VBG PH 7.33 mmol/L (7.31-7.41); VBG PO2 62.1 mmol/L (28-40); VBG Total CO2 24.5 mmol/L (23-27)
[2021-01-11 18:17] LABS: Coronavirus 19, PCR Not Detected (NotDetected); Influenza A, PCR Not Detected (NotDetected); Influenza B, PCR Not Detected (NotDetected)
[2021-01-11 18:17] LABS: Troponin I 0.05 ng/ml (0.00-0.034)
[2021-01-11 18:34] LABS: NT Pro Brain Natriuretic Pep. 4390 pg/mL (0-450)
--- NOTE | 2021-01-11 18:45 | PC.NURSE ---
Called calibration specialist for Rogelio
--- NOTE | 2021-01-11 18:54 | PC.NURSE ---
spoke with pts sisters with pts permission, who are sitting out in the lobby. states pt has a hx of dementia, copd and chf. states pt does get confused at times and is having difficulty caring for herself at home. -will notify JOSE MARTÍNZE of this concern of the family.
[2021-01-11 19:10] LABS: Lymphocytes % 3 % (10-50); Monocytes % 7 % (2-9); Neutrophils % 89 % (42-76); Platelet Estimate Normal; Total Cells Counted 100
[2021-01-11 20:13] LABS: Lactic Acid 0.9 mmol/L (0.7-2.1)
[2021-01-11 20:32] VITALS: PULSE 75; PULSE 86
[2021-01-11 20:54] VITALS: BP 141/70; PULSE 73; RESP 22; TEMP 36.7; O2SAT 94
--- NOTE | 2021-01-11 21:20 | PC.NURSE ---
PT ARRIVED VIA STRETCHER FROM ED W/STAFF AT 365
[2021-01-11 21:39] LABS: Troponin I 0.05 ng/ml (0.00-0.034)
[2021-01-11 22:00] VITALS: BP 185/82; PULSE 100; RESP 25; TEMP 36.9; O2SAT 98
[2021-01-12] VITALS (12 sets, daily range): BP systolic 104–168; BP diastolic 61–99; PULSE 66–98; RESP 16–20; TEMP 36.5–36.9; O2SAT 93–100; BMI 15.7
[2021-01-12 00:02] LABS: Troponin I 0.04 ng/ml (0.00-0.034)
--- NOTE | 2021-01-12 01:49 | ECG_ITS ---
APPROVED REPORT Exam: Resting ECG HR:113 bpm ECG Measurements Heart Rate 113 AXES QRSd 92 QRS 50 QT 346 T 93 QTc 474 Conclusion Atrial fibrillation with rapid ventricular response Voltage criteria for left ventricular hypertrophy ST & T wave abnormality, consider lateral ischemia or digitalis effect Abnormal ECG Electronically signed by : Chapito Byrne MD 01/13/2021 20:54:37
--- NOTE | 2021-01-12 02:23 | PC.NURSE ---
Rhythm change noted by staff. EKG was obtained.Read by ER MD Mchugh as multifocal atrial tachycardia. MD Kuhn notified. Atenolol 25 mg PO once ordered. Reorder home medication.
--- NOTE | 2021-01-12 07:12 | HMH.HP ---
*Admission Date: 01/11/21 *Chief complaint: cough and congestion *History of present illness: Ms. Banuelos is an 85-year-old white female with a history of COPD, tobacco abuse, Alzheimer's dementia, hypertension, peripheral vascular disease, depression and anxiety. History is obtained primarily from the ER record as she is unable to give a cogent history this morning. Per ER documentation, the patient was brought in by ambulance last evening with a 2-day history of cough and congestion. It was reported that she lives alone but in fact lives with her son who is mentally impaired. She was evaluated in the emergency room and found to have an elevated white count. Her chest x-rays reportedly showed a right upper lobe infiltrate. She was Covid negative and therefore admitted with a diagnosis of community-acquired pneumonia. At the time of my exam this morning she is awake and alert to name only. She does not remember how she got to the hospital. She admits to having some cough but no shortness of breath or chest pain. [facility] History Medical History: Reports:: Anxiety, Carotid Stenosis, Congestive Heart Failure, Chronic Obstructive Pulmonary Disease (COPD), Depression, Gastroesophageal Reflux Disease(GERD), Hyperlipidemia, Hypertension, Osteoporosis, Peripheral Vascular Disease Denies:: Cancer, Diabetes Mellitus Type 1, Diabetes Mellitus Type 2, MRSA *Have you ever received a pneumonia vaccine?: Yes *Have you received a flu vaccine this season?: No Other Medical History: Reports: Arthritis, Cataracts (REMOVED 2007), Hypothyroidism, Osteoporosis Laterality Cases: Right: Total Knee Replacement Other Surgeries: Yes: Cholecystectomy, Colonoscopy, EGD, Hysterectomy-Total, Other (ORIF R femur fx, angioplasty with stents to both legs, right CEA) Amputation: No Fractures: Yes (PELVIS,) - *Social History Smoking Status: Current every day smoker Tobacco Type: cigarettes # Packs/Day (cigarettes): 2 #Yrs smoked (if former smoker): 52 Alcohol Intake: never Alcohol Intake Frequency:: other Substance Use Type: denies use *Occupational Status:: retired Housing: house Household Members: family (son) *Travel in the last 8 weeks: None - Psychiatric History Pschychiatric History:: Reports:: Anxiety, Depression Family Hx:: Unable to obtain Review of Systems - Review of Systems Review of systems:: other (Not reliable due to dementia) Meds Home Medications Medication Instructions Recorded Confirmed Type Amlodipine Besylate [Norvasc 5mg 5 mg PO DAILY 09/30/17 01/11/21 History tablet] Aspirin [Aspirin 81mg chewable 81 mg PO DAILY 09/30/17 01/11/21 History tab] Clopidogrel Bisulfate [Plavix 75mg 75 mg PO DAILY 09/30/17 01/11/21 History Tab] Memantine HCl [Memantine 10mg 10 mg PO BID 09/30/17 01/11/21 History Tablet] Ropinirole HCl [Requip 0.25mg 0.25 mg PO HS 09/30/17 01/11/21 History Tablet] atenoloL [Atenolol 25mg Tab] 25 mg PO BID 09/30/17 01/11/21 History ALPRAZolam [Alprazolam 0.25mg 0.125 mg PO BIDP PRN #30 tab 10/01/17 01/11/21 Rx Tab] fluticasone 250 mcg-salmeterol 50 1 inh INHALATION BID 12/31/20 01/11/21 History mcg/dose blistr powdr for inhalation fluticasone propionate 50 1 spray INTRANASAL DAILY 12/31/20 01/11/21 History mcg/actuation nasal spray,suspension mirtazapine 15 mg tablet 15 mg PO HS 12/31/20 01/11/21 History naproxen 375 mg tablet 375 mg PO BID PRN 12/31/20 01/11/21 History rivastigmine 4.6 mg/24 hour 4.6 mg TRANSDERMA DAILY each 12/31/20 01/11/21 History transdermal patch Hydrocod/Acet 5/325 mg [Terril 0.5 - 1 tab PO Q4HP PRN 01/12/21 01/12/21 History 5/325mg tablet] Allergies Allergy/AdvReac Type Severity Reaction Status Date / Time cephalexin [From Keflex] Allergy Intermediate I-ITCHING Verified 12/31/20 15:20 acetaminophen [From PERCOCET] Allergy Unknown Verified 12/31/20 15:20 Iodinated Contrast Media Allergy Unknown Verified 12/31/20 15:20 [Iodinat
--- NOTE | 2021-01-12 11:41 | P.CONPHA_ITS ---
[facility] VTE Monitoring - Patient Demographics Admission date: 01/12/21 Report Date: 01/12/21 Time: 11:41 Allergies/Adverse Reactions: Patient Allergies cephalexin [From Keflex] Allergy (Intermediate, Verified 12/31/20 15:20) I-ITCHING acetaminophen [From PERCOCET] Allergy (Unknown, Verified 12/31/20 15:20) Iodinated Contrast Media [Iodinated Contrast Media - IV Dye] Allergy (Unknown, Verified 12/31/20 15:20) oxycodone [From PERCOCET] Allergy (Unknown, Verified 12/31/20 15:20) morphine Adverse Reaction (Intermediate, Verified 12/31/20 15:20) LOSE MY MIND propoxyphene Adverse Reaction (Intermediate, Verified 12/31/20 15:20) LOSE MY MIND Height: 1.68 m Weight: 44.271 kg Patient Problems: Current Active Problems COPD (chronic obstructive pulmonary disease) (Acute) Hypothyroidism (Acute) HBP (high blood pressure) (Acute) Generalized osteoarthritis (Acute) Tobacco abuse (Acute) GERD (gastroesophageal reflux disease) (Acute) PAD (peripheral artery disease) (Acute) Pneumonia (Acute) CHF (congestive heart failure) (Acute) Alzheimer's dementia (Acute) Depression with anxiety (Acute) Presbycusis (Acute) - VTE Risk Labs: VTE Related Lab Results Hgb 11.9 g/dL (12.2-16.2) L 01/11/21 17:38 Hct 32.6 % (37.0-47.0) L 01/11/21 17:38 Plt Count 275 K/mm3 (142-424) 01/11/21 17:38 BUN 25 mg/dl (7-17) H 01/11/21 17:38 Creatinine 0.90 mg/dl (0.52-1.04) 01/11/21 17:38 Estimated Creat Clear 35 mL/min (50-200) 01/11/21 17:38 VTE Risk Level: Moderate Risk - Prophylaxis Types of VTE Prophylaxis: TEDS Knee High (ROSA HOSE ORDERED)
--- NOTE | 2021-01-12 20:02 | PC.NURSE ---
Meds given per jun. Pt alert x 1. Bed alarm in place r/t safety. 02 @ 2 L JONNIE. VSS.
--- NOTE | 2021-01-12 22:39 | PC.NURSE ---
MD continuous vulcanizing machine operator notified of pt refusing to wear school bus monitor. MD made aware of previous troponin levels. MD voiced to this RN to D/C school bus monitor at this time.
--- NOTE | 2021-01-13 03:53 | PC.NURSE ---
Shift summary. Pt continues to be oriented to person only. She has been very uncooperative with staff, pulling off her oxygen and residential monitor and refusing to have vitals taken. Pt states You are in my home so you play by my rules. Pt appears anxious and confused. Alprazolam administered per MAR. Pt is tolerating 2 L nc well with sats above 95%. Pt has not c/o SOA, N/V, pain to staff. She has been reoriented multiple times. Pt is incontinent, brief in place. 22g IV in R AC patent and SL. Bed alarm on for safety measure, CB in reach, will continue to monitor.
[2021-01-13 04:00] VITALS: BP 182/84; PULSE 70; RESP 18; TEMP 37; O2SAT 91
[2021-01-13 05:13] VITALS: BMI 15.8
[2021-01-13 08:00] VITALS: BP 174/84; PULSE 66; RESP 16; TEMP 36.9; O2SAT 92; O2SAT 94
[2021-01-13 08:04] LABS: Basophils # 0.1 K/mm3 (0-0.2); Basophils % 0.6 % (0.1-2.0); Eosinophils # 0.1 K/mm3 (0.0-0.4); Eosinophils % 1.6 % (0.1-12.0); Hemoglobin 10.7 g/dL (12.2-16.2); Lymphocytes # 1.3 K/mm3 (0.7-4.5); Lymphocytes % 15.8 % (10-50); Mean Corpuscular HGB Conc 30.5 g/dL (31.8-35.4); Mean Corpuscular Hemoglobin 26.3 pg (27.0-31.2); Mean Platelet Volume 8.9 fl (7.4-10.4); Monocytes # 0.7 K/mm3 (0.1-1.0); Monocytes % 7.9 % (1.7-9.3); Neutrophils # 6.3 K/mm3 (1.8-7.8); Neutrophils % 74.1 % (37.0-80.0); Platelet Count 369 K/mm3 (142-424); Red Blood Count 4.07 M/mm3 (4.20-5.40); Red Cell Distribution Width 16.6 % (11.5-17.5); White Blood Count 8.4 K/mm3 (4.8-10.8)
[2021-01-13 08:12] LABS: Chloride 106 mmol/L (98-107); Creatinine Clearance Estimated 28 mL/min (50-200); Estimated Glomerular Filt Rate 59 ml/min (>60); GFR (African American) 72 ML/MIN (>60); Glucose 90 mg/dl (74-100); Potassium 3.8 mmoL/L (3.5-5.1)
[2021-01-13 08:19] LABS: Anion Gap 10.8 mEq/L (5-15); Blood Urea Nitrogen 17 mg/dl (7-17); Calcium 8.6 mg/dl (8.4-10.2); Carbon Dioxide 27 mmol/L (22.0-30.0); Sodium 140 mmol/L (136-145)
--- NOTE | 2021-01-13 09:11 | HMH.ACPN2 ---
Internal Medicine - PN: Subj *Date: 01/13/21 *Time: 09:11 Interval history: owning overnight. She was uncooperative with care and pulling at her IV and satellite project site monitor. She is a bit drowsy this morning but answers questions appropriately. Oriented to name only. Exam Vital signs and Labs for Last 24 Hours: Temp Pulse Resp BP Pulse Ox 98.6 F 70 18 182/84 H 91 L 01/13/21 04:00 01/13/21 04:00 01/13/21 04:00 01/13/21 04:00 01/13/21 04:00 Laboratory Results - last 24 hr 01/13/21 07:35: WBC 8.4 D, RBC 4.07 L, Hgb 10.7 L, Hct 35.0 L, MCV 86.0, MCH 26.3 L, MCHC 30.5 L, RDW 16.6, Plt Count 369 D, MPV 8.9, Neut % (Auto) 74.1, Lymph % (Auto) 15.8, [place] % (Auto) 7.9, Eos % (Auto) 1.6, Baso % (Auto) 0.6, Neut # (Auto) 6.3, Lymph # (Auto) 1.3, [place] # (Auto) 0.7, Eos # (Auto) 0.1, Baso # (Auto) 0.1 01/13/21 07:35: Sodium 140, Potassium 3.8, Chloride 106, Carbon Dioxide 27, Anion Gap 10.8, BUN 17 D, Creatinine 0.90, Estimated Creat Clear 28, Estimated GFR 59, Est GFR ( Amer) 72, Glucose 90, Calcium 8.6 I & O for Last 24 hours: Intake & Output 01/10/21 01/11/21 01/12/21 01/13/21 11:59 11:59 11:59 11:59 Intake Total 60 / 60 Balance 60 / 60 Weight 97 lb 9.6 oz 98 lb 8 oz Narrative: She is awake and answers questions. Oriented to name only. Chest with generally diminished breath sounds. No rales or wheezes. Heart is regular. Abdomen is soft and nontender. Extremities no edema. Assessment and Plan (1) Pneumonia Status: Acute Category: Medical Code(s): J18.9 - Pneumonia, unspecified organism (2) COPD (chronic obstructive pulmonary disease) Status: Acute Category: Medical Code(s): J44.9 - Chronic obstructive pulmonary disease, unspecified (3) Alzheimer's dementia Status: Acute Category: Medical Code(s): G30.9 - Alzheimer's disease, unspecified; F02.80 - Dementia in other diseases classified elsewhere without behavioral disturbance (4) Depression with anxiety Status: Acute Category: Medical Code(s): F41.8 - Other specified anxiety disorders (5) Presbycusis Status: Acute Category: Medical Code(s): H91.10 - Presbycusis, unspecified ear (6) GERD (gastroesophageal reflux disease) Status: Acute Category: Medical Code(s): K21.9 - Gastro-esophageal reflux disease without esophagitis (7) Generalized osteoarthritis Status: Acute Category: Medical Code(s): M15.9 - Polyosteoarthritis, unspecified (8) HBP (high blood pressure) Status: Acute Category: Medical Code(s): I10 - Essential (primary) hypertension (9) Hypothyroidism Status: Acute Category: Medical Code(s): E03.9 - Hypothyroidism, unspecified (10) PAD (peripheral artery disease) Status: Acute Category: Medical Code(s): I73.9 - Peripheral vascular disease, unspecified (11) Tobacco abuse Status: Acute Category: Medical Code(s): Z72.0 - Tobacco use - Assessment and plan all Dx Assessment and Plan for all problems:: White blood cell count has improved. Continue IV antibiotics. Plan for CT scan of chest tomorrow.
--- NOTE | 2021-01-13 09:13 | CT_ITS ---
PROCEDURE INFORMATION: Exam: CT Chest Without Contrast; Diagnostic Exam date and time: 01/13/2021 9:13 AM Age: 85 years old Clinical indication: Shortness of breath; Patient HX: Patient is an inpatient -- has dementia unable to gain much info -- patient is on oxygen SOB and abnormal xray today; Additional info: Abnormal cxr TECHNIQUE: Imaging protocol: Diagnostic computed tomography of the chest without contrast. Radiation optimization: All CT scans at this facility use at least one of these dose optimization techniques: automated exposure control; mA and/or kV adjustment per patient size (includes targeted exams where dose is matched to clinical indication); or iterative reconstruction. COMPARISON: CHESTWO CT chest wo con 09/30/2017 5:32 PM FINDINGS: The examination performed is degraded by motion artifact. Lungs: COPD, interstitial disease, and chronic granulomatous disease. Multifocal bilateral airspace disease, disproportionately basilar in distribution. Punctate subpleural upper lobe nodules, including a 2 mm right upper lobe nodule. For patients at low risk (minimal or absent history of smoking and of other known risk factors), no routine follow-up is indicated. For patients at high risk (history of smoking or of other known risk factors), consider optional CT Chest at 12 months. (Reference: Cathi). Pleural spaces: Mild pleural thickening. Heart: Coronary artery calcification. 8 mm pericardial effusion. Aorta: Calcification and ectasia of the thoracic aorta. Lymph nodes: Calcified and noncalcified lymph nodes including a 2.1 by 1.9 by 1.7 cm precarinal lymph node. Bones/joints: Osteopenia and chronic T6 compression fracture. Exaggerated thoracic kyphosis. Degenerative change. Soft tissues: Unremarkable. IMPRESSION: 1. COPD, interstitial disease, and chronic granulomatous disease. 2. Multifocal bilateral airspace disease, disproportionately basilar in distribution. 3.Additional findings as described above.
--- NOTE | 2021-01-13 14:59 | PC.NURSE ---
NO ACUTE CHANGES THIS SHIFT, SHE IS ABLE TO TELL STAFF HER NAME BUT OTHERWISE IN UNABLE TO PARTICIPATE IN MEANINGFUL CONVERSATION. SHE REFUSED HER EXELON PATCH THIS MORNING BUT DID TAKE HER PO MEDS. SHE HAS BEEN HYPERTENSIVE AT TIMES, INCONTINENT OF BOWEL AND BLADDER. CONTINUES ON 2LNC.
[2021-01-13 16:00] VITALS: BP 143/59; PULSE 71; RESP 15; TEMP 36.6; O2SAT 90
[2021-01-13 19:34] VITALS: O2SAT 95
[2021-01-13 20:00] VITALS: BP 138/74; PULSE 75; RESP 18; O2SAT 91
[2021-01-14] VITALS (8 sets, daily range): BP systolic 121–165; BP diastolic 71–76; PULSE 68–90; RESP 18–22; TEMP 36.6–37.3; O2SAT 86–95; BMI 14.8
--- NOTE | 2021-01-14 03:46 | PC.NURSE ---
PT ALERT TO SELF. IS CONFUSED ON WHERE SHE IS AND WHO WE ARE. PT YELLS OUT AT TIMES. PT WAS ABLE TO TALK TO A FAMILY MEMBER ON THE PHONE THIS EVENING, I BELIEVE THAT HELPED HER. ADMINISTERED PRN ANXIETY MED PER JUN, THIS DOES HELP HER REST AT NIGHT. BED SAFETY APPLIED. PT ALLOWED ME TO APPLY HER PATCH, AND TOOK HER MEDS EASILY. PT WAS BATHED THIS SHIFT, TOLERATED WELL. TOLERATING 2LNC. PT HAS HAD NO C/O OTHER THAN OCCASIONAL CONFUSION. VSS WILL CONTINUE TO MONITOR.
--- NOTE | 2021-01-14 09:22 | HMH.ACPN2 ---
<Chrissy Cummings - Last Filed: 01/14/21 09:22> Internal Medicine - PN: Subj *Date: 01/14/21 *Time: 09:22 Interval history: Patient states that she has a headache and wants a drink of water. She states her breathing is about the same. She denies chest pain. She states she is hungry. According to notes she eats very little. Exam Vital signs and Labs for Last 24 Hours: Temp Pulse Resp BP Pulse Ox 98.6 F 90 18 156/76 H 87 L 01/14/21 08:00 01/14/21 08:00 01/14/21 08:00 01/14/21 08:00 01/14/21 08:00 I & O for Last 24 hours: Intake & Output 01/11/21 01/12/21 01/13/21 01/14/21 11:59 11:59 11:59 11:59 Intake Total 120 / 120 510 / 510 Balance 120 / 120 510 / 510 Weight 97 lb 9.6 oz 98 lb 8 oz 92 lb 8 oz Microbiology Reports for the Last 24 Hours: Microbiology 01/11/21 19:44 Blood Blood Culture - Preliminary NO GROWTH AFTER 48 HOURS 01/11/21 19:44 Blood Blood Culture - Preliminary NO GROWTH AFTER 48 HOURS - Constitutional no acute distress Comments: She does assist with exam. - *Routine Respiratory Exam Present: CTA bilaterally (Anteriorly and posteriorly with diminished breath sounds posteriorly) - *Routine Cardiovascular Exam Present: RRR (70 to 80/min) - *Routine Abdominal Exam Present: soft, normoactive bowel sounds. Absent: tenderness - *Routine Extremities Exam Absent: edema, calf tenderness - *Routine Neurological Exam Present: alert (Unable to determine orientation.) Assessment and Plan (1) Pneumonia Status: Acute Category: Medical Code(s): J18.9 - Pneumonia, unspecified organism (2) COPD (chronic obstructive pulmonary disease) Status: Acute Category: Medical Code(s): J44.9 - Chronic obstructive pulmonary disease, unspecified (3) Alzheimer's dementia Status: Acute Category: Medical Code(s): G30.9 - Alzheimer's disease, unspecified; F02.80 - Dementia in other diseases classified elsewhere without behavioral disturbance (4) Depression with anxiety Status: Acute Category: Medical Code(s): F41.8 - Other specified anxiety disorders (5) Presbycusis Status: Acute Category: Medical Code(s): H91.10 - Presbycusis, unspecified ear (6) GERD (gastroesophageal reflux disease) Status: Acute Category: Medical Code(s): K21.9 - Gastro-esophageal reflux disease without esophagitis (7) Generalized osteoarthritis Status: Acute Category: Medical Code(s): M15.9 - Polyosteoarthritis, unspecified (8) HBP (high blood pressure) Status: Acute Category: Medical Code(s): I10 - Essential (primary) hypertension (9) Hypothyroidism Status: Acute Category: Medical Code(s): E03.9 - Hypothyroidism, unspecified (10) PAD (peripheral artery disease) Status: Acute Category: Medical Code(s): I73.9 - Peripheral vascular disease, unspecified (11) Tobacco abuse Status: Acute Category: Medical Code(s): Z72.0 - Tobacco use - Assessment and plan all Dx Assessment and Plan for all problems:: Continue current care With Levaquin daily and DuoNeb treatments. Per nursing: patient has been confused. Anxiety medicine has helped her to rest. Is taking her meds easily. Patient eats and drinks very little as per documentation <Jhon Mercado - Last Filed: 01/14/21 10:47> Internal Medicine - PN: Subj *Date: 01/14/21 *Time: 10:44 Exam Vital signs and Labs for Last 24 Hours: Temp Pulse Resp BP Pulse Ox 98.6 F 90 18 156/76 H 87 L 01/14/21 08:00 01/14/21 08:00 01/14/21 08:00 01/14/21 08:00 01/14/21 08:00 I & O for Last 24 hours: Intake & Output 01/11/21 01/12/21 01/13/21 01/14/21 11:59 11:59 11:59 11:59 Intake Total 120 / 120 510 / 510 Balance 120 / 120 510 / 510 Weight 97 lb 9.6 oz 98 lb 8 oz 92 lb 8 oz Microbiology Reports for the Last 24 Hours: Microbiology 01/11/21 19:44 Blood Blood Culture - Prel
--- NOTE | 2021-01-14 09:59 | SW/DCPLANNER ---
Addendum entered by Indira Mendon 01/17/21 09:53: I have updated Lisa with [facility] that this patient is medically stable for discharge today: discharge summary and COVID swab (negative) from today have been faxed. I will call and update patients family. Addendum entered by Indira Mendon 01/16/21 08:56: I have notified Lisa with [facility] that the plan for this patient is to discharge tomorrow. Dr Mchugh has stated that he will accept this patient at [facility]. Dr Mercado stated that he spoke with patients daughter/sisters yesterday and they are agreeable to plan. Addendum entered by [facility] 01/15/21 12:55: Patients daughter has called asking questions then stated that she was going to speak with Lisa from [facility] regarding further questions prior to making decisions. Addendum entered by [facility] 01/15/21 09:47: I have attempted to contact patients daughter (Radha) regarding patient being accepted to [facility]. Radha did not answer but VM has been left for daughter. Addendum entered by [facility] 01/15/21 07:17: Ronda with [facility] has stated that she can not meet this patients needs at this time. Lisa with [facility] has stated she can accept this patient once medically stable for discharge. I will informed Dr Mercado of this plan and patients family. Patient will need an additional COVID swab prior to discharge. Addendum entered by Indira Mendon 01/14/21 13:15: I spoke with patients daughter regarding placement and the need for PT/OT based on evaluation. Daughter stated that patient has become weak at home and could benefit from placement. I explained the different options to daughter of going to a facility under SNF level of care and the process if patient needs [employer] afterwards and the Medicaid process. Daughter is interested in [facility]: has been faxed to [facility] and [facility] are not in network with patients insurance. Daughter is also agreeable for information to be faxed to [facility]. I will continue to follow up with , , [facility] and [facility]. Discharge date is unknown at this time but Dr Mercado has stated could be within next two days. Original Note: I have attempted to contact patients son and daughter regarding discharge plans once patient is medically stable for discharge: no answer/VM left. PT/OT will evaluate this patient today. I will follow up with patient after evaluation.
--- NOTE | 2021-01-14 11:05 | DIET.NUTRFU ---
Pt with severe malnutrition rt dementia with loss 9% BW past 2 weeks. She has refused most nutrition t/o stay. Please encourage/cue at meal times prioritizing TID ensure on diet order.
--- NOTE | 2021-01-14 11:06 | HMH.PTEV ---
Physical Therapy Evaluation Rehab PT IP Evaluation Start: 01/14/21 09:29 Freq: .once Status: Active Protocol: Document 01/14/21 10:52 DAMIENSARAH (Rec: 01/14/21 11:06 DAMIENSARAH [id number]) Subjective/History History History Ms. Banuelos is an 85-year-old white female with a history of COPD, tobacco abuse, Alzheimer's dementia, hypertension, peripheral vascular disease, depression and anxiety. History is obtained primarily from the ER record as she is unable to give a cogent history this morning. Per ER documentation , the patient was brought in by ambulance last evening with a 2-day history of cough and congestion. It was reported that she lives alone but in fact lives with her son who is mentally impaired. - copied from ER H&P Subjective Subjective Pt reports c/o being cold, being sad and wishing to have some coffee to drink Rehab PT IP Eval Objective Appearance Patient Behavior Cooperative,Sedated Patient Orientation Place,Name Difficulty following instructions mild Speech Pattern Appropriate,Soft-Spoken Ambulation Patient Able to Ambulate Yes Ambulation Observation IP General Gait Pattern Observation Shuffling Step Ambulation Distance (feet) 2 Ambulation Assistive Device None Ambulation Ability Maximum x 1 (75% assist) Balance Ability to Arise Unable Sitting Balance Leans or slides in chair Standing Balance Unsteady Dynamic Sitting Balance Ability Poor Dynamic Standing Balance Ability Zero Transfers Bed Transfer Ability Maximum x 1 (75% assist) Chair Transfer Ability Maximum x 1 (75% assist) Sit to Stand Bed Transfer Ability Maximum x 1 (75% assist) Rehab PT IP prob,goals,plan Problems Date of Evaluation: 01/14/21 PT IP Problems Bed Mobility,Transfers,Gait, Self care,Safety Rehab Potential Rehab Potential Poor Equipment Needs Assistive Devices Rolling / Wheeled Walker Plan PT Intervention Plan Bed Mobility,Transfers,Gait, Therapeutic Exercise PT Plan Frequency BID Duration
--- NOTE | 2021-01-14 11:26 | HMH.OTEV ---
OT Inpatient Evaluation Rehab OT IP Evaluation Start: 01/14/21 09:30 Freq: ONCE Status: Complete Protocol: Document 01/14/21 10:22 JESSICA (Rec: 01/14/21 11:26 JESSICA [id number]) Rehab OT IP Assessment Subjective History Ms. Banuelos is an 85-year-old white female with a history of COPD, tobacco abuse, Alzheimer's dementia, hypertension, peripheral vascular disease, depression and anxiety. History is obtained primarily from the ER record as she is unable to give a cogent history this morning. Per ER documentation , the patient was brought in by ambulance last evening with a 2-day history of cough and congestion. It was reported that she lives alone but in fact lives with her son who is mentally impaired. She was evaluated in the emergency room and found to have an elevated white count. Her chest x-rays reportedly showed a right upper lobe infiltrate. She was Covid negative and therefore admitted with a diagnosis of community-acquired pneumonia. At the time of my exam this morning she is awake and alert to name only. She does not remember how she got to the hospital. She admits to having some cough but no shortness of breath or chest pain. [facility] History Medical History: Reports:: Anxiety, Carotid Stenosis, Congestive Heart Failure, Chronic Obstructive Pulmonary Disease (COPD), Depression, Gastroesophageal Reflux Disease(GERD), Hyperlipidemia, Hypertension, Osteoporosis, Peripheral Vascular Disease Per Pat[place], she lives in a 1 story home with no
--- NOTE | 2021-01-14 14:09 | CA_ITS ---
APPROVED REPORT EXAM: Comprehensive 2D, Doppler, and color-flow Echocardiogram Personal Banking Representative: Chely Cisneros CRT Ht: 5 ft 4 in Wt: 92lbs BSA: 1.41 BP: 156/76 mmHg Indications: Congestive Heart Failure, Hypertension/HDD, pneumonia, Alzheimer's, GERD, Smoker 2D Dimensions LA Volume 62.10 mL LA Volume Index 44.00 mL/m2 (M/F) 16-34 M-Mode Dimensions RVDd 2.43 cm (0.9-2.6) LA Diam 3.89 cm (1.9-4.0) LVDd 3.74 cm (3.5-5.7) Ao Diam 3.24 cm (2.0-3.7) LVDs 2.52 cm (3.5-5.7) IVSd 1.28 cm (0.6-1.1) PWd 1.00 cm (0.6-1.1) EF (Teich) 61.70% FS 32.60% EDV (Teich) 59.60 mL TAPSE 1.51 (<1.7) ESV (Teich) 22.80 mL LV Diastology E Decel Time 260.00 (160-240 msec) E/A Ratio 1.05 MED E' 4.40 (< 7 cm/sec) MED A' 8.40 cm/s E'/MED E' Ratio 16.45 (>14) LAT E' 8.10 (<10 cm/sec) LAT A' 8.90 cm/s E/LAT E' Ratio 8.94 (>14) Aortic Valve AO Peak GR. 11.10 mmHg Mitral Valve MV A Velocity 69.00 (40-130 cm/s) E/A Ratio 1.05 MV Decel. Time 260.00 (160-240 ms) Tricuspid Valve TR P. Velocity 147.00 cm/s RAP Estimate 10.00 mmHg RVSP 18.60 mmHg Left Ventricle Left atrium is mildly enlarged, left ventricle is normal size, mild concentric left ventricular hypertrophy, visually estimated ejection fraction 55% with no regional wall motion abnormality, grade 1 diastolic dysfunction seen without tissue Doppler evidence of raise left atrial pressure. Right Ventricle Right atrium and right ventricle are normal size and contractility. Aortic Valve Aortic valve is minimally thickened and fibrosed, there is no aortic stenosis or aortic insufficiency. Mitral Valve Mitral valve leaflets are minimally thickened, there is mild mitral regurgitation. Tricuspid Valve Tricuspid valve is grossly normal, there is mild tricuspid regurgitation, tricuspid regurgitation jet velocity is inadequate for calculation of the right ventricular systolic pressure. Pulmonic Valve Pulmonic valve is poorly visualized. Great Vessels Aortic root is normal size. Inferior vena cava is not well visualized Pericardium No significant pericardial effusion noted. Conclusion 1. Mildly enlarged left atrium, normal left ventricular size, mild concentric left ventricular hypertrophy, visually estimated ejection fraction 55% with no regional wall motion abnormality, grade 1 diastolic dysfunction seen without tissue Doppler evidence of raise left atrial pressure. 2. Mild mitral and tricuspid regurgitation. 3. No significant pericardial effusion noted. Electronically signed by : Manjeet Rodriguez MD 01/15/2021 06:20:51
--- NOTE | 2021-01-14 17:57 | PC.NURSE ---
Pt has been pleasant and cooperative this shift. Alert to self. Pt is currently receiving O2 via NC @ 1 LPM with sats. >90%. Lungs CTA. No edema noted. Skin is C/D/I. Pt is incontinent and a brief is in place. Urine is clear and yellow. No BM thus far today. Pt agreed to work with therapy this shift and sat up in the recliner for several hours. Appetite is fair and pt eats about 25-50% of all meals. 22 G peripheral IV in the RT AC is patent and SL. VSS. Call light within reach. Will continue to monitor.
--- NOTE | 2021-01-14 21:01 | XR_ITS ---
PROCEDURE INFORMATION: Exam: XR Chest Exam date and time: 01/14/2021 9:01 PM Age: 85 years old Clinical indication: Shortness of breath; Additional info: SOB TECHNIQUE: Imaging protocol: XR of the chest. Views: 1 view. COMPARISON: CT CHEST WO CON 01/13/2021 10:16 AM FINDINGS: Lungs: Hyperinflation with multifocal nodular basal pulmonary opacities. Pleural spaces: No pneumothorax. Heart/Mediastinum: No cardiomegaly. Bones/joints: Degenerative changes. No acute abnormality. IMPRESSION: Hyperinflation with multifocal nodular basal pulmonary opacities as seen on recent chest CT.
[2021-01-14 21:33] LABS: Creatine Kinase 39 U/L (30-135)
[2021-01-14 21:43] LABS: CKMB Relative Index 3.6 U/L (0-4.0); Creatine Kinase MB 1.4 ng/ml (0.0-2.03)
[2021-01-14 21:46] LABS: Troponin I 0.03 ng/ml (0.00-0.034)
--- NOTE | 2021-01-14 23:45 | PC.NURSE ---
2019 Upon entering room, pt appeared diaphoretic and was c/o SOA. O2 sat 84% on 1 L nc. 2024 Pt raised to 4L nc with O2 sat 89%, pt continues c/o SOA. 2034 O2 raised to 6L, O2 sat 82% Pt states she is no longer SOA.
[2021-01-15] VITALS (11 sets, daily range): BP systolic 110–157; BP diastolic 55–73; PULSE 64–92; RESP 16–28; TEMP 36.6–37.8; O2SAT 90–96; BMI 15.3
--- NOTE | 2021-01-15 03:49 | PC.NURSE ---
Shift summary. Alert and oriented only to person. Pt has progressively became more confused t/o the night. Pt appeared diaphoretic and c/o SOA on 1 L nc at beginning of shift. Pt was titrated up to 6 L with sats of 92%. MD hydraulic elevator constructor notified. Pt currently receiving O2 via nc @ 5 L. Tolerating well with sats 91-94%. Daughter updated on pt status. Pt c/o pain and had low grade fever, tx per JUN with favorable results. Non productive intermittent cough noted. Pt has been turned q2h. Pt currently resting in bed. VSS. CB in reach. Will continue to monitor.
--- NOTE | 2021-01-15 08:54 | HMH.ACPN2 ---
<Chrissy Cummings - Last Filed: 01/15/21 09:04> Internal Medicine - PN: Subj *Date: 01/15/21 *Time: 09:04 Interval history: Patient states she can go home with her mother. Patient does have a bed at [facility] and this will be discussed with family. Patient was evaluated by physical therapy yesterday and recommended for her to go to a facility for ongoing rehab. She required 2 person assist with standing and sitting on the side of the bed. Patient was confused throughout the night. She did complain of some shortness of breath and O2 was increased to 6 L with sats at 92%.O2 sats on 5 L this a.m. are 91 to 94%. Patient did have a low-grade fever. She did complain of pain to the nurses although this morning she denies any further pain. She does have a nonproductive intermittent Congested cough. Chest x-ray last p.m. shows hyperinflation with multifocal nodular basal pulmonary opacities as seen on recent chest CT. Exam Vital signs and Labs for Last 24 Hours: Temp Pulse Resp BP Pulse Ox 99.0 F 74 20 142/59 H 90 L 01/15/21 04:00 01/15/21 06:48 01/15/21 04:00 01/15/21 04:00 01/15/21 06:48 Laboratory Results - last 24 hr 01/14/21 21:20: Total Creatine Kinase 39, CK-MB (CK-2) 1.4, CK-MB (CK-2) Rel Index 3.6, Troponin I 0.03 I & O for Last 24 hours: Intake & Output 01/12/21 01/13/21 01/14/21 01/15/21 11:59 11:59 11:59 11:59 Intake Total 120 / 120 510 / 510 290 / 290 Balance 120 / 120 510 / 510 290 / 290 Weight 97 lb 9.6 oz 98 lb 8 oz 92 lb 9.506 oz 95 lb 0.308 oz - Constitutional no acute distress Comments: Awake and appears comfortable. Has been assisted with breakfast. - *Routine Respiratory Exam Present: rhonchi, wheezes (Bilaterally A&P), crackles - *Routine Cardiovascular Exam Present: RRR - *Routine Abdominal Exam Present: soft, normoactive bowel sounds. Absent: tenderness - *Routine Extremities Exam Absent: edema - *Routine Neurological Exam Present: alert, moving all extremities. Absent: oriented X3 Assessment and Plan (1) Pneumonia Status: Acute Category: Medical Code(s): J18.9 - Pneumonia, unspecified organism (2) COPD (chronic obstructive pulmonary disease) Status: Acute Category: Medical Code(s): J44.9 - Chronic obstructive pulmonary disease, unspecified (3) Alzheimer's dementia Status: Acute Category: Medical Code(s): G30.9 - Alzheimer's disease, unspecified; F02.80 - Dementia in other diseases classified elsewhere without behavioral disturbance (4) Depression with anxiety Status: Acute Category: Medical Code(s): F41.8 - Other specified anxiety disorders (5) Presbycusis Status: Acute Category: Medical Code(s): H91.10 - Presbycusis, unspecified ear (6) GERD (gastroesophageal reflux disease) Status: Acute Category: Medical Code(s): K21.9 - Gastro-esophageal reflux disease without esophagitis (7) Generalized osteoarthritis Status: Acute Category: Medical Code(s): M15.9 - Polyosteoarthritis, unspecified (8) HBP (high blood pressure) Status: Acute Category: Medical Code(s): I10 - Essential (primary) hypertension (9) Hypothyroidism Status: Acute Category: Medical Code(s): E03.9 - Hypothyroidism, unspecified (10) PAD (peripheral artery disease) Status: Acute Category: Medical Code(s): I73.9 - Peripheral vascular disease, unspecified (11) Tobacco abuse Status: Acute Category: Medical Code(s): Z72.0 - Tobacco use (12) Debility Status: Acute Category: Medical Code(s): R53.81 - Other malaise - Assessment and plan all Dx Assessment and Plan for all problems:: Patient will be started on IV steroids today. Disposition to be discussed with family. Patient does have a bed at [facility]. Continue with all respiratory support. <Jhon Mercado - Last Filed: 01/15/21 17:42> Internal Medicine - PN: Subj *Date: 01/15/21 *Time: 08:15 Exam V
--- NOTE | 2021-01-15 11:23 | PC.NURSE ---
Spoke to pt's sister, updated on plan of care. O2 mid 90's on 5 L, O2 weaned to 4L @ this time
--- NOTE | 2021-01-15 16:32 | PC.NURSE ---
No acute changes. O2 has been weaned to 3 L per nasal cannula. Pt has been asleep majority of day. Pt worked w/ pt, was a max assist up to chair. Family visited today. Treated for BLE chronic pain w/ norco. No needs voiced. Call benites w/in reach. Bed alarm in place.
[2021-01-16] VITALS (10 sets, daily range): BP systolic 104–134; BP diastolic 45–76; PULSE 52–88; RESP 15–18; TEMP 36.5–36.9; O2SAT 84–96; BMI 15.4
--- NOTE | 2021-01-16 03:33 | PC.NURSE ---
Pt is A/O to self and place this shift. Pt remained confused t/o night. Pt remains on 3L NC with O2 stats >90%. Pt has slept on and off t/o shift. VSS, call light within reach, will continue to monitor.
[2021-01-16 08:14] LABS: HIV Screen 4th Generation wRfx Non Reactive (Non Reactive)
--- NOTE | 2021-01-16 08:54 | HMH.ACPN2 ---
<Chrissy Cummings - Last Filed: 01/16/21 08:54> Internal Medicine - PN: Subj *Date: 01/16/21 *Time: 08:54 Interval history: Awakened from sleep for assessment. She is very hard of hearing but expresses that she is better today. She denies shortness of breath. She denies chest pain. She does not remember the events of yesterday. Exam Vital signs and Labs for Last 24 Hours: Temp Pulse Resp BP Pulse Ox 98.2 F 67 18 127/59 L 96 01/16/21 08:00 01/16/21 08:00 01/16/21 08:00 01/16/21 08:00 01/16/21 08:00 Laboratory Results - last 24 hr 01/14/21 21:38: HIV 1&2 Ag/Ab, 4th Gen Non reactive I & O for Last 24 hours: Intake & Output 01/13/21 01/14/21 01/15/21 01/16/21 11:59 11:59 11:59 11:59 Intake Total 120 / 120 510 / 510 410 / 410 360 / 360 Balance 120 / 120 510 / 510 410 / 410 360 / 360 Weight 98 lb 8 oz 92 lb 9.506 oz 95 lb 0.308 oz 96 lb - Constitutional no acute distress - *Routine Respiratory Exam Present: wheezes, crackles Comments: She does have crackles and wheezes scattered throughout but sounds better today. Cough is infrequent today - *Routine Cardiovascular Exam Present: RRR - *Routine Abdominal Exam Present: soft, normoactive bowel sounds. Absent: tenderness - *Routine Extremities Exam Absent: edema, calf tenderness - *Routine Neurological Exam Present: alert. Absent: oriented X3 Assessment and Plan (1) Pneumonia Status: Acute Category: Medical Code(s): J18.9 - Pneumonia, unspecified organism (2) COPD (chronic obstructive pulmonary disease) Status: Acute Category: Medical Code(s): J44.9 - Chronic obstructive pulmonary disease, unspecified (3) Alzheimer's dementia Status: Acute Category: Medical Code(s): G30.9 - Alzheimer's disease, unspecified; F02.80 - Dementia in other diseases classified elsewhere without behavioral disturbance (4) Depression with anxiety Status: Acute Category: Medical Code(s): F41.8 - Other specified anxiety disorders (5) Presbycusis Status: Acute Category: Medical Code(s): H91.10 - Presbycusis, unspecified ear (6) GERD (gastroesophageal reflux disease) Status: Acute Category: Medical Code(s): K21.9 - Gastro-esophageal reflux disease without esophagitis (7) Generalized osteoarthritis Status: Acute Category: Medical Code(s): M15.9 - Polyosteoarthritis, unspecified (8) HBP (high blood pressure) Status: Acute Category: Medical Code(s): I10 - Essential (primary) hypertension (9) Hypothyroidism Status: Acute Category: Medical Code(s): E03.9 - Hypothyroidism, unspecified (10) PAD (peripheral artery disease) Status: Acute Category: Medical Code(s): I73.9 - Peripheral vascular disease, unspecified (11) Tobacco abuse Status: Acute Category: Medical Code(s): Z72.0 - Tobacco use (12) Debility Status: Acute Category: Medical Code(s): R53.81 - Other malaise - Assessment and plan all Dx Assessment and Plan for all problems:: Continue with current care with pulmonary hygiene. She is on O2 per nasal cannula at 4 L/min. Family has agreed for patient to go to rehab. Possibly discharge tomorrow. <Jhon Mercado - Last Filed: 01/16/21 10:43> Internal Medicine - PN: Subj *Date: 01/16/21 *Time: 10:42 Exam Vital signs and Labs for Last 24 Hours: Temp Pulse Resp BP Pulse Ox 98.2 F 75 18 127/59 L 96 01/16/21 08:00 01/16/21 09:27 01/16/21 08:00 01/16/21 08:00 01/16/21 08:00 Laboratory Results - last 24 hr 01/14/21 21:38: HIV 1&2 Ag/Ab, 4th Gen Non reactive I & O for Last 24 hours: Intake & Output 01/13/21 01/14/21 01/15/21 01/16/21 11:59 11:59 11:59 11:59 Intake Total 120 / 120 510 / 510 410 / 410 480 / 480 Balance 120 / 120 510 / 510 410 / 410 480 / 480 Weight 98 lb 8 oz 92 lb 9.506 oz 95 lb 0.308 oz 96 lb Assessment and Plan (1) Pneumonia Status: Acute Category: Medical Code(s): J18.9 - Pneumonia, uns
--- NOTE | 2021-01-16 09:57 | DIET.NUTRFU ---
Pt with severe malnutrition rt dementia. PO intakes poor- 25% and refusing meals at times. Weight stable. TID ensure and moderate soft modifications on order. Please encourage/cue at meal times.
--- NOTE | 2021-01-16 10:43 | P.PN_ITS ---
Internal Medicine - PN: Subj *Date: 01/16/21 *Time: 10:43 Exam Vital signs and Labs for Last 24 Hours: Temp Pulse Resp BP Pulse Ox 98.2 F 75 18 127/59 L 96 01/16/21 08:00 01/16/21 09:27 01/16/21 08:00 01/16/21 08:00 01/16/21 08:00 Laboratory Results - last 24 hr 01/14/21 21:38: HIV 1&2 Ag/Ab, 4th Gen Non reactive I & O for Last 24 hours: Intake & Output 01/13/21 01/14/21 01/15/21 01/16/21 23:59 23:59 23:59 23:59 Intake Total 450 / 450 410 / 410 480 / 480 120 / 120 Balance 450 / 450 410 / 410 480 / 480 120 / 120 Weight 44.679 kg 42 kg 43.1 kg 43.545 kg Assessment and Plan (1) Pneumonia Status: Acute Category: Medical Code(s): J18.9 - Pneumonia, unspecified organism (2) COPD (chronic obstructive pulmonary disease) Status: Acute Category: Medical Code(s): J44.9 - Chronic obstructive pulmonary disease, unspecified (3) Alzheimer's dementia Status: Acute Category: Medical Code(s): G30.9 - Alzheimer's disease, unspecified; F02.80 - Dementia in other diseases classified elsewhere without behavioral disturbance (4) Depression with anxiety Status: Acute Category: Medical Code(s): F41.8 - Other specified anxiety disorders (5) Presbycusis Status: Acute Category: Medical Code(s): H91.10 - Presbycusis, unspecified ear (6) GERD (gastroesophageal reflux disease) Status: Acute Category: Medical Code(s): K21.9 - Gastro-esophageal reflux disease without esophagitis (7) Generalized osteoarthritis Status: Acute Category: Medical Code(s): M15.9 - Polyosteoarthritis, unspec ified (8) HBP (high blood pressure) Status: Acute Category: Medical Code(s): I10 - Essential (primary) h ypertension (9) Hypothyroidism Status: Acute Category: Medical Code(s): E03.9 - Hypothyroidism, unspecified (10) PAD (peripheral artery disease) Status: Acute Category: Medical Code(s): I73.9 - Peripheral vascular disease, unspecified (11) Tobacco abuse Status: Acute Category: Medical Code(s): Z72.0 - Tobacco use (12) Debility Status: Acute Category: Medical Code(s): R53.81 - Other malaise The patient's infection will respond to the chosen ABx?: Yes Is the patient receiving the right drug, dose, and route?: Yes Could a more targeted ABx be ordered?: No 7
[2021-01-16 11:20] LABS: Hep B Core Ab, Total Negative (Negative); Hep Be Ag Negative (Negative); Hepatitis C Antibody <0.1 s/co ratio (0.0-0.9)
--- NOTE | 2021-01-16 18:57 | PC.NURSE ---
pt's VSS, pt got out of bed to the chair for several hours this afternoon, pt didn't eat much at breakfast or lunch but ate a good amount at dinner, pt pleasantly confused, got pt back to bed with family present at shift change, pt resting comfortably in bed with bed alarm on
[2021-01-17] VITALS: BP 107/56; PULSE 70; RESP 17; TEMP 36.4; O2SAT 94
[2021-01-17 04:00] VITALS: BP 108/58; PULSE 73; RESP 17; TEMP 36.4; O2SAT 94
[2021-01-17 04:56] VITALS: BMI 15.3
[2021-01-17 07:47] VITALS: BP 102/56; PULSE 77; RESP 18; TEMP 36.4; O2SAT 91
[2021-01-17 08:00] VITALS: O2SAT 94
--- NOTE | 2021-01-17 08:29 | HMH.ACPN2 ---
<Teresita Ho - Last Filed: 01/17/21 08:37> Internal Medicine - PN: Subj *Date: 01/17/21 *Time: 08:37 Interval history: Pt is resting quietly in bed, rouses easily to voice. She denies any pain and has no complaint other than being tired . She reports her breathing is doing ok today and denies any shortness of breath. Exam Vital signs and Labs for Last 24 Hours: Temp Pulse Resp BP Pulse Ox 97.6 F 77 18 102/56 L 91 L 01/17/21 07:47 01/17/21 07:47 01/17/21 07:47 01/17/21 07:47 01/17/21 07:47 Laboratory Results - last 24 hr 01/14/21 21:38: Hep B Core Total Ab Negative, Hepatitis Be Antigen Negative, Hepatitis C Antibody <0.1 I & O for Last 24 hours: Intake & Output 01/14/21 01/15/21 01/16/21 01/17/21 11:59 11:59 11:59 11:59 Intake Total 510 / 510 410 / 410 480 / 480 530 / 530 Output Total 0 / 0 Balance 510 / 510 410 / 410 480 / 480 530 / 530 Weight 92 lb 9.506 oz 95 lb 0.308 oz 96 lb 95 lb 7 oz Microbiology Reports for the Last 24 Hours: Microbiology 01/11/21 19:44 Blood Blood Culture - Final NO GROWTH AFTER 5 DAYS 01/11/21 19:44 Blood Blood Culture - Final NO GROWTH AFTER 5 DAYS - Constitutional no acute distress, thin Comments: appears frail - *Routine HEENT Exam Head: Present: normocephalic ENT: Present: mucous membranes moist - *Routine Respiratory Exam Absent: respiratory distress Comments: inspiratory wheeze anteriorly, diminished posteriorly with bibasilar rales - *Routine Cardiovascular Exam Present: RRR - *Routine Abdominal Exam Present: soft, normoactive bowel sounds. Absent: tenderness, distended, firm - *Routine Extremities Exam Present: pulses intact. Absent: edema, calf tenderness Comments: bilateral SCUDs in place - *Routine Neurological Exam arouses easily to voice, alert to person and place, answering questions and following simple commands appropriately Assessment and Plan (1) Pneumonia Status: Acute Category: Medical Code(s): J18.9 - Pneumonia, unspecified organism (2) COPD (chronic obstructive pulmonary disease) Status: Acute Category: Medical Code(s): J44.9 - Chronic obstructive pulmonary disease, unspecified (3) Alzheimer's dementia Status: Acute Category: Medical Code(s): G30.9 - Alzheimer's disease, unspecified; F02.80 - Dementia in other diseases classified elsewhere without behavioral disturbance (4) Depression with anxiety Status: Acute Category: Medical Code(s): F41.8 - Other specified anxiety disorders (5) Presbycusis Status: Acute Category: Medical Code(s): H91.10 - Presbycusis, unspecified ear (6) GERD (gastroesophageal reflux disease) Status: Acute Category: Medical Code(s): K21.9 - Gastro-esophageal reflux disease without esophagitis (7) Generalized osteoarthritis Status: Acute Category: Medical Code(s): M15.9 - Polyosteoarthritis, unspecified (8) HBP (high blood pressure) Status: Acute Category: Medical Code(s): I10 - Essential (primary) hypertension (9) Hypothyroidism Status: Acute Category: Medical Code(s): E03.9 - Hypothyroidism, unspecified (10) PAD (peripheral artery disease) Status: Acute Category: Medical Code(s): I73.9 - Peripheral vascular disease, unspecified (11) Tobacco abuse Status: Acute Category: Medical Code(s): Z72.0 - Tobacco use (12) Debility Status: Acute Category: Medical Code(s): R53.81 - Other malaise - Assessment and plan all Dx Assessment and Plan for all problems:: Plan for discharge to [facility] today. 7 <Jhon Mercado - Last Filed: 01/17/21 17:09> Internal Medicine - PN: Subj *Date: 01/17/21 *Time: 17:08 Exam Vital signs and Labs for Last 24 Hours: Temp Pulse Resp BP Pulse Ox 97.6 F 74 18 102/56 L 94 L 01/17/21 07:47 01/17/21 09:34 01/17/21 07:47 01/17/21 07:47 01/17/21 08:0
[2021-01-17 08:34] LABS: Coronavirus 19, PCR Not Detected (NotDetected); Influenza A, PCR Not Detected (NotDetected); Influenza B, PCR Not Detected (NotDetected)
[2021-01-17 09:34] VITALS: PULSE 74
--- NOTE | 2021-01-17 09:34 | HMH.DCSUM ---
General - General Admission date:: 01/11/21 <Jhon Mercado - 01/17/21 17:11> 01/11/21 <VicTeresita oakes - 01/17/21 09:49> Discharge date: 01/17/21 <VicCameron oakesa - 01/17/21 09:49> HPI HPI: Ms. Banuelos was an 85-year-old white female with a history of COPD, tobacco abuse, Alzheimer's dementia, hypertension, peripheral vascular disease, depression and anxiety. History was obtained primarily from the ER record as she was unable to give a cogent history. Per ER documentation, the patient was brought in by ambulance with a 2-day history of cough and congestion. It was reported that she lived alone but in fact lives with her son who is mentally impaired. She was evaluated in the emergency room and found to have an elevated white count. Her chest x-rays reportedly showed a right upper lobe infiltrate. She was Covid negative and therefore admitted with a diagnosis of community-acquired pneumonia. At the time of initial exam she was awake and alert to name only. She did not remember how she got to the hospital. She admitted to having some cough but no shortness of breath or chest pain. <VicTeresita oakes - 01/17/21 09:49> Hospital Course Hospital Course: Overnight she experienced sundowning behavior and by the morning of 01/13/21 she was oriented to self only although she was answering questions appropriately. Her WBC was improved and IV antibiotics were continued with plan for chest CT the following day. She remained confused, eating and drinking very little. Care management was consulted for likely long-term placement. PT and OT evaluation was ordered. By the morning of 01/15/21, she was requiring oxygen at 5lpm to maintain sats >90%. She had run a low-grade fever overnight. She had been evaluated by PT who recommended placement for ongoing rehab as she was requiring 2-person assist with standing and sitting on the side of the bed. Placement was found at [facility] and after lengthy discussion with daughter she was agreeable that patient would benefit from skilled care placement for ongoing treatment of her pneumonia and physical and occupational therapy. On evening rounds, the patient was more alert and sitting up in the chair. CXR showed hyperinflation with multifocal nodular basal pulmonary opacities as seen on recent chest CT. She continued to improve and by the morning of 01/17/21, she was felt stable for discharge to [facility]. <VicTeresita - 01/17/21 09:49> Objective Vital signs: Temp Pulse Resp BP Pulse Ox 97.6 F 74 18 102/56 L 94 L 01/17/21 07:47 01/17/21 09:34 01/17/21 07:47 01/17/21 07:47 01/17/21 08:00 <RogelioJhon rubin Srinivas - 01/17/21 17:11> Temp Pulse Resp BP Pulse Ox 97.6 F 77 18 102/56 L 91 L 01/17/21 07:47 01/17/21 07:47 01/17/21 07:47 01/17/21 07:47 01/17/21 07:47 <Teresita Ho - 01/17/21 09:49> Results Labs on day of discharge: Labs from last 24 hours 01/17/21 08:28 SARS-CoV-2 (PCR) Not detected Influenza A Untype (PCR) Not detected Influenza Type B (PCR) Not detected <Jhon Mercado - 01/17/21 17:11> Labs from last 24 hours 01/17/21 01/14/21 08:28 21:38 SARS-CoV-2 (PCR) Not detected Hep B Core Total Ab Negative Hepatitis Be Antigen Negative Hepatitis C Antibody <0.1 Influenza A Untype (PCR) Not detected Influenza Type B (PCR) Not detected <Teresita Ho - 01/17/21 09:49> DS: Diagnosis - Discharge Diagnosis (1) Pneumonia Status: Acute (2) COPD (chronic obstructive pulmonary disease) Status: Acute (3) Alzheimer's dementia Status: Acute (4) Depression with anxiety Status: Acute (5) Presbycusis Status: Acute (6) GERD (gastroesophageal reflux disease) Status: Acute (7) Generalized osteoarthritis Status: Acute (8) HBP (high blood pressure) Status: Acute (9) Hypothyroidism Status: Acute (10) PAD (p
== END 2021-01-17 12:45 | disposition hospice, inpatient (51) | DRG 193 ==
LOC: ER 18:44 → 2ND 20:49
PROVIDERS: Admitting Provider Family Medicine; Emergency Provider Internal Medicine; PCP Family Medicine; Visit Provider Family Medicine
DX: J18.9 Pneumonia, unspecified organism (principal); E43 Unspecified severe protein-calorie malnutrition; Z68.1 Body mass index [BMI] 19.9 or less, adult; J44.0 Chronic obstructive pulmonary disease with (acute) lower respiratory infection; E46 Unspecified protein-calorie malnutrition; I50.9 Heart failure, unspecified; F17.210 Nicotine dependence, cigarettes, uncomplicated; Z79.01 Long term (current) use of anticoagulants; Z20.822 Contact with and (suspected) exposure to COVID-19; G30.9 Alzheimer's disease, unspecified; K21.9 Gastro-esophageal reflux disease without esophagitis; Z88.8 Allergy status to other drugs, medicaments and biological substances; Z79.899 Other long term (current) drug therapy; E03.9 Hypothyroidism, unspecified; I11.0 Hypertensive heart disease with heart failure; Z95.820 Peripheral vascular angioplasty status with implants and grafts; M15.9 Polyosteoarthritis, unspecified; Z96.651 Presence of right artificial knee joint; F41.8 Other specified anxiety disorders; I73.9 Peripheral vascular disease, unspecified; F02.80 Dementia in other diseases classified elsewhere, unspecified severity, without behavioral disturbance, psychotic disturbance, mood disturbance, and anxiety; M81.0 Age-related osteoporosis without current pathological fracture; I65.29 Occlusion and stenosis of unspecified carotid artery; M19.90 Unspecified osteoarthritis, unspecified site
CPT/HCPCS: 36415; 71045; 71250; 80048; 80053; 82550; 82553; 82803; 83605; 83880; 84484; 85007; 85025; 86703; 86704; 87040; 87350; 87380; 93005; 93306; 94640; 94761; 96365; 96375; 97162; 97165; 97530; 97535; 99284; C9803; G0432; J1956; J2405; U0003; U0005

== ENCOUNTER 2021-07-29 18:41 | Inpatient (IN) | payer MEDICARE, MEDICAID, SELFPAY ==
[2021-07-29 18:50] VITALS: BP 164/94; PULSE 65; RESP 18; TEMP 36.9; O2SAT 98; BMI 19.5
--- NOTE | 2021-07-29 18:55 | HMH.EDGENADL ---
ED Disposition Referrals: Calvin Mchugh MD [Primary Care Provider] - Attestation: On , the high probability of a clinically significant, sudden or life threatening deterioration of the following system(s) required my full and direct attention, intervention and personal management. The time I documented below is in addition to time spent performing reported procedures but includes the following listed in this critical care notation. General Adult HPI - General Stated complaint: rectal bleed Time Seen by Provider: 07/29/21 18:55 - Related Data Home Medications Medication Instructions Recorded Confirmed Amlodipine Besylate [Norvasc 5mg 5 mg PO DAILY 09/30/17 05/12/21 tablet] Aspirin [Aspirin 81mg chewable 81 mg PO DAILY 09/30/17 05/12/21 tab] Clopidogrel Bisulfate [Plavix 75mg 75 mg PO DAILY 09/30/17 05/12/21 Tab] Memantine HCl [Memantine 10mg 10 mg PO BID 09/30/17 05/12/21 Tablet] Ropinirole HCl [Requip 0.25mg 0.25 mg PO HS 09/30/17 05/12/21 Tablet] atenoloL [Atenolol 25mg Tab] 25 mg PO BID 09/30/17 05/12/21 fluticasone 250 mcg-salmeterol 50 1 inh INHALATION BID 12/31/20 05/12/21 mcg/dose blistr powdr for inhalation fluticasone propionate 50 1 spray INTRANASAL DAILY 12/31/20 05/12/21 mcg/actuation nasal spray,suspension mirtazapine 15 mg tablet 15 mg PO HS 12/31/20 05/12/21 rivastigmine 4.6 mg/24 hour 4.6 mg TRANSDERMA DAILY each 12/31/20 05/12/21 transdermal patch Previous Rx's Medication Instructions Recorded Ipratropium/Albuterol Sulfate 3 ml IH QIDRT 01/17/21 [Duoneb 3mL neb] levoFLOXacin [Levaquin 750mg 750 mg PO Q48H #3 tab 01/17/21 tablet] predniSONE [Prednisone 20mg 20 mg PO DAILY #7 tab 01/17/21 Tab] hyoscyamine sulfate 0.125 mg tablet 0.125 mg PO Q6H #60 tab 05/16/21 lorazepam 0.5 mg tablet 0.5 mg PO Q2H PRN #60 tab 05/16/21 lorazepam 0.5 mg tablet 0.5 mg PO Q8H #90 tab 05/31/21 quetiapine 50 mg tablet 50 mg PO BID #60 tab 06/26/21 hydrocodone 5 mg-acetaminophen 325 1 tab PO Q4H PRN #180 tab 06/28/21 mg tablet Allergies Allergy/AdvReac Type Severity Reaction Status Date / Time cephalexin [From Keflex] Allergy Intermediate I-ITCHING Verified 05/12/21 18:31 acetaminophen [From PERCOCET] Allergy Unknown Verified 05/12/21 18:31 Iodinated Contrast Media Allergy Unknown Verified 05/12/21 18:31 [Iodinated Contrast Media - IV Dye] oxycodone [From PERCOCET] Allergy Unknown Verified 05/12/21 18:31 morphine AdvReac Intermediate LOSE MY Verified 05/12/21 18:31 MIND propoxyphene AdvReac Intermediate LOSE MY Verified 05/12/21 18:31 MIND [facility] History - Hepatitis A Screen Attestation statement:: This patient has been screened for Hepatitis A risk factors. Medical History: Reports:: Anxiety, Carotid Stenosis, Congestive Heart Failure, Chronic Obstructive Pulmonary Disease (COPD), Depression, Gastroesophageal Reflux Disease(GERD), Hyperlipidemia, Hypertension, Osteoporosis, Peripheral Vascular Disease Denies:: Cancer, Diabetes Mellitus Type 1, Diabetes Mellitus Type 2, MRSA Other Medical History: Reports: Arthritis, Cataracts (REMOVED 2007), Hypothyroidism, Osteoporosis Laterality Cases: Bilateral: Arthroscopy Knee Other Surgeries: Yes: Cholecystectomy, Colonoscopy, EGD, Hysterectomy-Total, Other Amputation: No Fractures: Yes (PELVIS,) Comment: Back surgery; right knee replacement; cholecystectomy; ORIF for fractured right femur 2006; bladder tack 2006; angioplasty and stents to right leg 2007; angioplasty and stents to left leg 2007; 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
--- NOTE | 2021-07-29 19:13 | CT_ITS ---
PROCEDURE INFORMATION: Exam: CT Abdomen And Pelvis With Contrast Exam date and time: 07/29/2021 8:26 PM Age: 85 years old Clinical indication: Other: Rectal bleeding TECHNIQUE: Imaging protocol: Computed tomography of the abdomen and pelvis with contrast. Radiation optimization: All CT scans at this facility use at least one of these dose optimization techniques: automated exposure control; mA and/or kV adjustment per patient size (includes targeted exams where dose is matched to clinical indication); or iterative reconstruction. Contrast material: ISOVUE; Contrast volume: 75 ml; Contrast route: IV; COMPARISON: CR HIPCMRT XR hip RT 2-3V w/pelvis 01/14/2018 1:50 PM FINDINGS: Lungs: Streaky opacities at the lung bases. Heart: Coronary artery calcifications. Liver: Normal. No mass. Gallbladder and bile ducts: Post cholecystectomy change. Pancreas: Normal enhancement. No ductal dilation. Spleen: No splenomegaly. Adrenal glands: No mass. Kidneys and ureters: Hypoattenuating renal lesions measuring up to 8 mm which are too small to characterize. No hydronephrosis. Stomach and bowel: Asymmetric anorectal wall thickening measuring up to 17 mm. Appendix: No evidence of appendicitis. Intraperitoneal space: No free air. No significant fluid collection. Arteries: Calcified atherosclerosis. No aneurysm. Lymph nodes: No enlarged lymph nodes. Urinary bladder: No acute abnormality. Reproductive: No acute abnormality. Bones/joints: Scoliosis. Posterior fusion hardware at L4 through S1. No acute fracture. Soft tissues: Soft tissue induration overlying bilateral ischial tuberosities Other findings: Exam is limited by patient motion. IMPRESSION: Asymmetric anorectal wall thickening which is nonspecific and potentially infectious or inflammatory however raises concern for potential malignancy. Correlation with direct inspection recommended.
[2021-07-29 19:31] VITALS: BP 134/69; O2SAT 94
[2021-07-29 19:38] LABS: Basophils # 0.1 K/mm3 (0-0.2); Basophils % 1.3 % (0.1-2.0); Eosinophils # 0.2 K/mm3 (0.0-0.4); Eosinophils % 2.9 % (0.1-12.0); Hematocrit 33.4 % (37.0-47.0); Hemoglobin 10.7 g/dL (12.2-16.2); Lymphocytes # 1.1 K/mm3 (0.7-4.5); Mean Corpuscular HGB Conc 32.2 g/dL (31.8-35.4); Mean Corpuscular Hemoglobin 25.9 pg (27.0-31.2); Mean Corpuscular Volume 80.6 fl (81-99); Mean Platelet Volume 8.5 fl (7.4-10.4); Monocytes # 0.4 K/mm3 (0.1-1.0); Monocytes % 5.6 % (1.7-9.3); Neutrophils # 5.6 K/mm3 (1.8-7.8); Neutrophils % 75.2 % (37.0-80.0); Platelet Count 336 K/mm3 (142-424); Red Blood Count 4.14 M/mm3 (4.20-5.40); Red Cell Distribution Width 18.7 % (11.5-17.5); White Blood Count 7.4 K/mm3 (4.8-10.8)
[2021-07-29 19:44] LABS: Alanine Aminotransferase 19 U/L (12-78); Albumin Level 3.9 g/dl (3.5-5.0); Albumin/Globulin Ratio 1.2 (1.1-1.8); Alkaline Phosphatase 76 U/L (38-126); Amylase 87 U/L (30-110); Anion Gap 14.3 mEq/L (5-15); Aspartate Amino Transferase 26 U/L (14-36); Bilirubin,Total 0.4 mg/dl (0.2-1.3); Blood Urea Nitrogen 38 mg/dl (7-17); Calcium 9.1 mg/dl (8.4-10.2); Carbon Dioxide 28 mmol/L (22.0-30.0); Chloride 104 mmol/L (98-107); Creatinine Clearance Estimated 29 mL/min (50-200); Estimated Glomerular Filt Rate 53 ml/min (>60); GFR (African American) 64 ML/MIN (>60); Globulin 3.3 g/dL (1.3-3.2); Glucose 128 mg/dl (74-100); Lipase 164 U/L (23-300); Potassium 4.3 mmoL/L (3.5-5.1); Sodium 142 mmol/L (136-145); Total Protein,Serum 7.2 g/dl (6.3-8.2)
[2021-07-29 19:46] LABS: Microscopic, Urine URINE MICROSCOPIC (MICROSCOPIC)
[2021-07-29 19:49] LABS: C-Reactive Protein 26.6 mg/L (0-4)
--- NOTE | 2021-07-29 19:55 | PC.NURSE ---
mouth swabs given to family
[2021-07-29 20:00] LABS: Appearance,Urine SL CLOUDY (Clear); Bilirubin,Urine Negative (Negative); Blood, Urine Negative (Negative); Color,Urine YELLOW (Yellow); Glucose,Urine (UA) Negative (Negative); Ketones,Urine Negative (Negative); Leukocyte Esterase,Urine Negative (Negative); Nitrate,Urine Negative (Negative); Occult Blood,Stool Positive (Negative); Protein,Urine Negative (Negative); Urobilinogen,Urine 0.2 EU/dl (0.2)
[2021-07-29 20:01] VITALS: BP 143/52; O2SAT 93
[2021-07-29 20:03] LABS: Procalcitonin 0.065 ng/mL (0.0-2.0)
--- NOTE | 2021-07-29 20:11 | XR_ITS ---
PROCEDURE INFORMATION: Exam: XR Chest Exam date and time: 07/29/2021 8:11 PM Age: 85 years old Clinical indication: Other: Rectal bleeding TECHNIQUE: Imaging protocol: XR of the chest. Views: 1 view. COMPARISON: CR XR CHEST PORTABLE 01/14/2021 9:08 PM FINDINGS: Lungs: Examination is significantly limited by patient positioning with significant rotation and the head overlying the right lung apex. Potential airspace opacity within the right upper lobe which is incompletely evaluated. Pleural spaces: Not well evaluated. No large effusion. Heart/Mediastinum: Prominent cardiac silhouette which appears stable. Bones/joints: Scoliosis. IMPRESSION: Examination is significantly limited by patient positioning with significant rotation and the head overlying the right lung apex. Potential airspace opacity within the right upper lobe which is incompletely evaluated.
[2021-07-29 20:16] LABS: Coronavirus 19, PCR Not Detected (NotDetected); Influenza A, PCR Not Detected (NotDetected); Influenza B, PCR Not Detected (NotDetected)
[2021-07-29 20:22] LABS: Bacteria,Urine 4+ /lpf; RBC,Urine Occasional #/hpf (0-3)
[2021-07-29 20:32] LABS: Erythrocyte Sedimentation Rate 92 mm/hr (0-30)
[2021-07-29 20:40] VITALS: BP 140/68; O2SAT 90
--- NOTE | 2021-07-29 21:44 | PC.NURSE ---
Dr. Kuhn paged for Dr. Mchugh
--- NOTE | 2021-07-29 21:50 | PC.NURSE ---
Dr. Mchugh on phone with Dr. Kuhn
--- NOTE | 2021-07-29 21:55 | HMH.EDGIBL ---
ED Disposition Clinical Impression: Lower gastrointestinal hemorrhage Alzheimer's dementia Qualifiers: Alzheimer's disease onset: other onset Dementia behavioral disturbance: without behavioral disturbance Qualified Code(s): G30.8 - Other Alzheimer's disease; F02.80 - Dementia in other diseases classified elsewhere without behavioral disturbance Disposition: Admitted As Inpatient Condition on Discharge: Good Referrals: Calvin Mchugh MD [Primary Care Provider] - - Critical Care Critical Care Time: No Attestation: On 07/29/21, the high probability of a clinically significant, sudden or life threatening deterioration of the following system(s) required my full and direct attention, intervention and personal management. The time I documented below is in addition to time spent performing reported procedures but includes the following listed in this critical care notation. Medical Decision Making - Medical Records Medical records reviewed: Yes: I reviewed the patient's medical records. - Gurpreet Inquiry Pt receiving controlled substance: No Vital Signs: 07/29/21 18:50 07/29/21 19:31 07/29/21 20:01 Temperature 98.4 F Temperature Source Oral Pulse Rate [Right Brachial] 65 Respiratory Rate 18 Blood Pressure 134/69 143/52 H Blood Pressure [Right Arm] 164/94 H Blood Pressure Mean 90 82 Blood Pressure Mean [Right Arm] 117 Blood Pressure Source [Right Arm] Automatic Cuff Blood Pressure Position [Right Arm] Sitting 02 Sat by Pulse Oximetry 98 94 L 93 L Oxygen Delivery Method Room Air Room Air Room Air 07/29/21 20:40 Temperature Temperature Source Pulse Rate [Right Brachial] Respiratory Rate Blood Pressure 140/68 Blood Pressure [Right Arm] Blood Pressure Mean 101 Blood Pressure Mean [Right Arm] Blood Pressure Source [Right Arm] Blood Pressure Position [Right Arm] 02 Sat by Pulse Oximetry 90 L Oxygen Delivery Method Room Air - Lab Data Lab results reviewed: Yes: I reviewed the patient's lab results. Lab Results 07/29/21 19:27: WBC 7.4, RBC 4.14 L, Hgb 10.7 L, Hct 33.4 L, MCV 80.6 L, MCH 25.9 L, MCHC 32.2, RDW 18.7 H, Plt Count 336, MPV 8.5, Neut % (Auto) 75.2, Lymph % (Auto) 15.0, [place] % (Auto) 5.6, Eos % (Auto) 2.9, Baso % (Auto) 1.3, Neut # (Auto) 5.6, Lymph # (Auto) 1.1, [place] # (Auto) 0.4, Eos # (Auto) 0.2, Baso # (Auto) 0.1, ESR 92 H 07/29/21 19:27: Sodium 142, Potassium 4.3, Chloride 104, Carbon Dioxide 28, Anion Gap 14.3, BUN 38 H, Creatinine 1.00, Estimated Creat Clear 29, Estimated GFR 53 L, Est GFR ( Amer) 64, Glucose 128 H, Calcium 9.1, Total Bilirubin 0.4, AST 26, ALT 19, Alkaline Phosphatase 76, C-Reactive Protein 26.6 H, Total Protein 7.2, Albumin 3.9, Globulin 3.3 H, Albumin/Globulin Ratio 1.2, Amylase 87, Lipase 164, Procalcitonin 0.065 07/29/21 19:41: Urine Color Yellow, Urine Appearance Sl cloudy, Urine pH 6.0, Ur Specific [place] 1.020, Urine Protein Negative, Urine Glucose (UA) Negative, Urine Ketones Negative, Urine Blood Negative, Urine Nitrate Negative, Urine Bilirubin Negative, Urine Urobilinogen 0.2, Ur Leukocyte Esterase Negative, Urine RBC Occasional, Urine WBC 5-10, Ur Squamous Epith Cells None, Urine Bacteria 4+ 07/29/21 19:41: Stool Occult Blood Positive A 07/29/21 20:09: SARS-CoV-2 (PCR) Not detected, Influenza A Untype (PCR) Not detected, Influenza Type B (PCR) Not detected Result diagrams: 07/29/21 19:27 07/29/21 19:27 Orders (Tests/Meds): ED MEDICATIONS Generic Name Dose Route Start Last Admin Trade Name Freq PRN Reason Stop Dose Admin Sodium Chloride 1,000 mls @ 999 mls/hr 07/29/21 20:00 07/29/21 20:08 Sod Chlor 0.9% 1000ml Bag IV 07/29/21 21:00 999 mls/hr .Q1H1M ELENA Administration Sodium Chloride 10 ml 07/29/21 20:15 Sodium Chloride 0.9% 10ml Vial IV 08/28/21 20:14 NEEDED PRN dilute protonix Discontinued Medications Generic Name Dose Route Start Last Admin Trade Name Freq PRN Reason Stop Dos
--- NOTE | 2021-07-29 22:29 | PC.NURSE ---
phone call from snf checking on status, informed patient is being admitted for lower GI bleed
[2021-07-29 22:31] VITALS: BMI 18.6
--- NOTE | 2021-07-29 22:50 | PC.NURSE ---
mouth swabs given
[2021-07-29 23:38] VITALS: BP 169/59; PULSE 79; RESP 18; TEMP 36.9; O2SAT 95
[2021-07-30] VITALS: BP 113/74; PULSE 80; RESP 20; TEMP 36.9; O2SAT 92
[2021-07-30 04:00] VITALS: BP 107/70; PULSE 78; RESP 18; TEMP 36.9; O2SAT 93
--- NOTE | 2021-07-30 05:14 | PC.NURSE ---
PT HAS BEEN CONFUSED AND TRYING TO GET OUT OF BED ALL NIGHT,BED ALARM SET.SHE HAS BEEN CALLING OUT [employer] NAMES AND TALKING TO HER SELF.SHE WAS JUST FOUND SITTING ON SIDE OF BED WITH HER GOWN OFF AND FIDGETING WITH HER FINGERS LIKE SHE WAS EATING SOMETHING.PT ALERT ONLY TO HER SELF,DOES NOT KNOW WHERE SHE IS ,HER BRIEF HAS ALREADY BEEN CHANGED 3 TIMES (VOID)SINCE ADMISSION,V/S STABLE.BED IN LOW POSITION 3 RAILS UP AND BED ALARM IS STILL SET,DOOR OPEN FOR CLOSE SUPERVISION
--- NOTE | 2021-07-30 07:23 | HMH.PHAVTE ---
[facility] Pharm[facility] VTE Monitoring - Patient Demographics Admission date: 07/29/21 Report Date: 07/30/21 Time: 07:23 Allergies/Adverse Reactions: Patient Allergies cephalexin [From Keflex] Allergy (Intermediate, Verified 05/12/21 18:31) I-ITCHING acetaminophen [From PERCOCET] Allergy (Unknown, Verified 05/12/21 18:31) Iodinated Contrast Media [Iodinated Contrast Media - IV Dye] Allergy (Unknown, Verified 05/12/21 18:31) oxycodone [From PERCOCET] Allergy (Unknown, Verified 05/12/21 18:31) morphine Adverse Reaction (Intermediate, Verified 05/12/21 18:31) LOSE MY MIND propoxyphene Adverse Reaction (Intermediate, Verified 05/12/21 18:31) LOSE MY MIND Height: 1.52 m Weight: 43.091 kg Patient Problems: Current Active Problems Lower gastrointestinal hemorrhage (Acute) Alzheimer's dementia (Chronic) - VTE Risk Labs: VTE Related Lab Results Hgb 10.7 g/dL (12.2-16.2) L 07/29/21 19:27 Hct 33.4 % (37.0-47.0) L 07/29/21 19:27 Plt Count 336 K/mm3 (142-424) 07/29/21 19:27 BUN 38 mg/dl (7-17) H 07/29/21 19:27 Creatinine 1.00 mg/dl (0.52-1.04) 07/29/21 19:27 Estimated Creat Clear 29 mL/min (50-200) 07/29/21 19:27 - Prophylaxis VTE Prophylaxis Ordered?: Yes Types of VTE Prophylaxis: TEDS Knee High Location of Applied Device: Bilateral Lower Extremeties
[2021-07-30 07:40] LABS: Basophils # 0.1 K/mm3 (0-0.2); Basophils % 0.8 % (0.1-2.0); Eosinophils # 0.3 K/mm3 (0.0-0.4); Hematocrit 29.3 % (37.0-47.0); Hemoglobin 9.7 g/dL (12.2-16.2); Lymphocytes # 1.5 K/mm3 (0.7-4.5); Lymphocytes % 20.7 % (10-50); Mean Corpuscular HGB Conc 33.2 g/dL (31.8-35.4); Mean Corpuscular Hemoglobin 26.6 pg (27.0-31.2); Mean Corpuscular Volume 80.2 fl (81-99); Mean Platelet Volume 8.5 fl (7.4-10.4); Monocytes # 0.5 K/mm3 (0.1-1.0); Monocytes % 7.3 % (1.7-9.3); Neutrophils # 4.9 K/mm3 (1.8-7.8); Neutrophils % 67.2 % (37.0-80.0); Platelet Count 308 K/mm3 (142-424); Red Blood Count 3.65 M/mm3 (4.20-5.40); Red Cell Distribution Width 18.7 % (11.5-17.5); White Blood Count 7.3 K/mm3 (4.8-10.8)
[2021-07-30 07:41] LABS: Chloride 112 mmol/L (98-107); Potassium 3.6 mmoL/L (3.5-5.1); Sodium 140 mmol/L (136-145)
[2021-07-30 07:44] LABS: Anion Gap 6.6 mEq/L (5-15); Blood Urea Nitrogen 24 mg/dl (7-17); Carbon Dioxide 25 mmol/L (22.0-30.0); Creatinine Clearance Estimated 27 mL/min (50-200); Estimated Glomerular Filt Rate 59 ml/min (>60); GFR (African American) 72 ML/MIN (>60); Glucose 92 mg/dl (74-100)
--- NOTE | 2021-07-30 09:19 | P.HP_ITS ---
*Admission Date: 07/29/21 <Chrissy Cummings 07/30/21 09:35> *Chief complaint: Rectal bleeding <Chrissy Cummings 07/30/21 09:35> *History of present illness: is an 85-year-old female with a history of osteoarthritis, Momo, COPD, asthma dementia, hypothyroidism, congestive heart failure, hypertension and depression who was sent to [facility] emergency room from [facility] due to noting blood in her stool. With presentation to the emergency room she was found to be stable with a blood pressure 164/94. She was afebrile. Labs revealed a hemoglobin of 10.7 hematocrit of 33.4. Stool was positive for occult blood. She received A liter of IV fluids and IV Protonix. She was then admitted for further evaluation and treatment with a surgical consult. Nursing states patient has had a restless night and did not go to sleep until 5 30 this morning. Patient is n.p.o. for surgical visit. Patient awakened for visit and is unable to answer questions. <Chrissy Cummings 07/30/21 09:35> [facility] History Medical History: Reports:: Anxiety, Carotid Stenosis, Congestive Heart Failure, Chronic Obstructive Pulmonary Disease (COPD), Depression, Gastroesophageal Reflux Disease(GERD), Hyperlipidemia, Hypertension, Osteoporosis, Peripheral Vascular Disease Denies:: Cancer, Diabetes Mellitus Type 1, Diabetes Mellitus Type 2, MRSA <Chrissy Cummings 07/30/21 09:35> *Have you ever received a pneumonia vaccine?: Yes <Chrissy Cummings 07/30/21 09:35> *Have you received a flu vaccine this season?: Yes <Chrissy Cummings 07/30/21 09:35> Other Medical History: Reports: Arthritis, Cataracts (REMOVED 2007), Hypothyroidism, Osteoporosis <Chrissy Cummings 07/30/21 09:35> Laterality Cases: Bilateral: Arthroscopy Knee <Chrissy Cummings 07/30/21 09:35> Other Surgeries: Yes: Cholecystectomy, Colonoscopy, EGD, Hysterectomy-Total, Other <Chrissy Cummings 07/30/21 09:35> Amputation: No <Chrissy Cummings 07/30/21 09:35> Fractures: Yes (PELVIS,) <Chrissy Cummings 07/30/21 09:35> - *Social History Last grade of school completed: 7th or 8th <ZoilaChrissy Fantasma 07/30/21 09:35> Smoking Status: Current some day smoker <CummingsChrissy - 07/30/21 09:35> Tobacco Type: cigarettes <CummingsChrissy Fantasma 07/30/21 09:35> # Packs/Day (cigarettes): 1 <CummingsChrissy - 07/30/21 09:35> #Yrs smoked (if former smoker): 52 <CummingsChrissy - 07/30/21 09:35> Alcohol Intake: never <CummingsChrissy - 07/30/21 09:35> Alcohol Intake Frequency:: other <ZoilaChrissy - 07/30/21 09:35> Substance Use Type: denies use <ZoilaChrissy - 07/30/21 09:35> *Occupational Status:: retired <Chrissy Cummings 07/30/21 09:35> Housing: half-way <Chrissy Cummings 07/30/21 09:35> Household Members: other <CummingsChrissy - 07/30/21 09:35> *Travel in the last 8 weeks: None <Chrissy Cummings 07/30/21 09:35> - Psychiatric History Pschychiatric History:: Reports:: Anxiety, Depression <Chrissy Cummings 07/30/21 09:35> Family Hx:: Unable to obtain <Chrissy Cummings 07/30/21 09:35> Review of Systems - Review of Systems Review of systems:: unable to obtain <Chrissy Cummings 07/30/21 09:35> - *Neurologic Denies seizure-like activity <Chrissy Cummings 07/30/21 09:35> Meds Home Medications Medication Instructions Recorded Confirmed Type Amlodipine Besylate [Norvasc 5mg 5 mg PO DAILY 09/30/17 07/29/21 History tablet] Aspirin [Aspirin 81mg chewable 81 mg PO DAILY 09/30/17 07/29/21 History tab] Memantine HCl [Memantine 10mg 10 mg PO BID 09/30/17 07/29/21 History Tablet] Ropinirole H
--- NOTE | 2021-07-30 09:19 | HMH.HP ---
*Admission Date: 07/29/21 <Chrissy Cummings 07/30/21 09:35> *Chief complaint: Rectal bleeding <Chrissy Cummings 07/30/21 09:35> *History of present illness: is an 85-year-old female with a history of osteoarthritis, Momo, COPD, asthma dementia, hypothyroidism, congestive heart failure, hypertension and depression who was sent to [facility] emergency room from [facility] due to noting blood in her stool. With presentation to the emergency room she was found to be stable with a blood pressure 164/94. She was afebrile. Labs revealed a hemoglobin of 10.7 hematocrit of 33.4. Stool was positive for occult blood. She received A liter of IV fluids and IV Protonix. She was then admitted for further evaluation and treatment with a surgical consult. Nursing states patient has had a restless night and did not go to sleep until 530 this morning. Patient is n.p.o. for surgical visit. Patient awakened for visit and is unable to answer questions. <Chrissy Cummings 07/30/21 09:35> [facility] History Medical History: Reports:: Anxiety, Carotid Stenosis, Congestive Heart Failure, Chronic Obstructive Pulmonary Disease (COPD), Depression, Gastroesophageal Reflux Disease(GERD), Hyperlipidemia, Hypertension, Osteoporosis, Peripheral Vascular Disease Denies:: Cancer, Diabetes Mellitus Type 1, Diabetes Mellitus Type 2, MRSA <Chrissy Cummings 07/30/21 09:35> *Have you ever received a pneumonia vaccine?: Yes <Chrissy Cummings 07/30/21 09:35> *Have you received a flu vaccine this season?: Yes <Chrissy Cummings 07/30/21 09:35> Other Medical History: Reports: Arthritis, Cataracts (REMOVED 2007), Hypothyroidism, Osteoporosis <Chrissy Cummings 07/30/21 09:35> Laterality Cases: Bilateral: Arthroscopy Knee <Chrissy Cummings 07/30/21 09:35> Other Surgeries: Yes: Cholecystectomy, Colonoscopy, EGD, Hysterectomy-Total, Other <Chrissy Cummings 07/30/21 09:35> Amputation: No <Chrissy Cummings 07/30/21 09:35> Fractures: Yes (PELVIS,) <Chrissy Cummings 07/30/21 09:35> - *Social History Last grade of school completed: 7th or 8th <Chrissy Cummings 07/30/21 09:35> Smoking Status: Current some day smoker <ZoilaChrissy 07/30/21 09:35> Tobacco Type: cigarettes <ZoilaChrissy Fantasma 07/30/21 09:35> # Packs/Day (cigarettes): 1 <ZoilaChrissy Fantasma 07/30/21 09:35> #Yrs smoked (if former smoker): 52 <ZoilaChrissy - 07/30/21 09:35> Alcohol Intake: never <ZoilaChrissy Fantasma 07/30/21 09:35> Alcohol Intake Frequency:: other <CummingsChrissy - 07/30/21 09:35> Substance Use Type: denies use <CummingsChrissy - 07/30/21 09:35> *Occupational Status:: retired <CummingsChrissy 07/30/21 09:35> Housing: [facility] <CummingsChrissy 07/30/21 09:35> Household Members: other <CummingsChrissy - 07/30/21 09:35> *Travel in the last 8 weeks: None <CummingsChrissy 07/30/21 09:35> - Psychiatric History Pschychiatric History:: Reports:: Anxiety, Depression <CummingsChrissy - 07/30/21 09:35> Family Hx:: Unable to obtain <CummingsChrissy youssef 07/30/21 09:35> Review of Systems - Review of Systems Review of systems:: unable to obtain <Chrissy Cummings 07/30/21 09:35> - *Neurologic Denies seizure-like activity <Chrissy Cummings 07/30/21 09:35> Meds Home Medications Medication Instructions Recorded Confirmed Type Amlodipine Besylate [Norvasc 5mg 5 mg PO DAILY 09/30/17 07/29/21 History tablet] Aspirin [Aspirin 81mg chewable 81 mg PO DAILY 09/30/17 07/29/21 History tab] Memantine HCl [Memantine 10mg 10 mg PO BID 09/30/17 07/29/21 History Tablet] Ropinirole HCl [Requip 0.25mg 0.25 mg PO HS 09/30/17 07/29/21 History Tablet] atenoloL [Atenolol 25mg Tab] 25 mg PO DAILY 09/30/17 07/30/21 History hydrocodone 5 mg-acetaminophen 325 1 tab PO Q4H PRN #180 tab 06/28/21 07/29/21 Rx mg tablet LORazepam [Lorazepam] 0.5 mg PO TID 07/29/21 07/30/21 History Quetiapine Fumarate 50 mg PO DAILY 07/29/21 07/29/21 History Albuterol Sulfate [Alb
--- NOTE | 2021-07-30 09:38 | SW/DCPLANNER ---
Addendum entered by Indira Khan 07/30/21 15:56: Leda lopez/ [facility] stated this patient's stay is related. Addendum entered by Indira Khan 07/30/21 14:31: Rachel lopez/ [facility] has stated that a [employer] w/ [facility] will call me back regarding related admission. Original Note: This patient currently resides at [facility] under Hospice Care. Updated patient information has been faxed to Lisa lopez/ [facility] and to [facility]. I have asked [facility] once they review patient information to please let me know if stay is related to Hospice admission. I will continue to follow up with: patient, , [facility] and [facility]. Discharge date is unknown at this time.
[2021-07-30 09:41] VITALS: BP 145/64; PULSE 60; RESP 18; TEMP 36.7; O2SAT 93
--- NOTE | 2021-07-30 10:53 | HMH.PHAINT ---
MEDICATION RECONCILIATION COMPLETED ON PATIENT USING [facility] FROM [facility]. -PRADIP MYERS, SIRIAD
--- NOTE | 2021-07-30 11:36 | HMH.GSCON ---
*Admission Date: 07/29/21 *Reason for consult:: Blood per rectum; abnormal CT of rectum *History of present illness: This is an 85-year-old female seen in consultation from Dr. Mercado for evaluation regarding lower gastrointestinal bleed and abnormal CT scan of rectum. Please see HPI forwarded from admission H&P below. Forwarded from H&P: is an 85-year-old female with a history of osteoarthritis, Momo, COPD, asthma dementia, hypothyroidism, congestive heart failure, hypertension and depression who was sent to [facility] emergency room from [facility] due to noting blood in her stool. With presentation to the emergency room she was found to be stable with a blood pressure 164/94. She was afebrile. Labs revealed a hemoglobin of 10.7 hematocrit of 33.4. Stool was positive for occult blood. She received A liter of IV fluids and IV Protonix. She was then admitted for further evaluation and treatment with a surgical consult. Nursing states patient has had a restless night and did not go to sleep until 530 this morning. Patient is n.p.o. for surgical visit. Patient awakened for visit and is unable to answer questions. Review of Systems - Review of Systems Review of systems:: unable to obtain - *Neurologic Denies seizure-like activity [facility] History Medical History: Reports:: Anxiety, Carotid Stenosis, Congestive Heart Failure, Chronic Obstructive Pulmonary Disease (COPD), Depression, Gastroesophageal Reflux Disease(GERD), Hyperlipidemia, Hypertension, Osteoporosis, Peripheral Vascular Disease Denies:: Cancer, Diabetes Mellitus Type 1, Diabetes Mellitus Type 2, MRSA *Have you ever received a pneumonia vaccine?: Yes *Have you received a flu vaccine this season?: Yes Other Medical History: Reports: Arthritis, Cataracts (REMOVED 2007), Hypothyroidism, Osteoporosis Laterality Cases: Bilateral: Arthroscopy Knee Other Surgeries: Yes: Cholecystectomy, Colonoscopy, EGD, Hysterectomy-Total, Other Amputation: No Fractures: Yes (PELVIS,) - *Social History Last grade of school completed: 7th or 8th Smoking Status: Current some day smoker Tobacco Type: cigarettes # Packs/Day (cigarettes): 1 #Yrs smoked (if former smoker): 52 Alcohol Intake: never Alcohol Intake Frequency:: other Substance Use Type: denies use *Occupational Status:: retired Housing: residential Household Members: other *Travel in the last 8 weeks: None - Psychiatric History Pschychiatric History:: Reports:: Anxiety, Depression Family Hx:: Unable to obtain Meds Home Medications Medication Instructions Recorded Confirmed Type Amlodipine Besylate [Norvasc 5mg 5 mg PO DAILY 09/30/17 07/29/21 History tablet] Aspirin [Aspirin 81mg chewable 81 mg PO DAILY 09/30/17 07/29/21 History tab] Memantine HCl [Memantine 10mg 10 mg PO BID 09/30/17 07/29/21 History Tablet] Ropinirole HCl [Requip 0.25mg 0.25 mg PO HS 09/30/17 07/29/21 History Tablet] atenoloL [Atenolol 25mg Tab] 25 mg PO DAILY 09/30/17 07/30/21 History hydrocodone 5 mg-acetaminophen 325 1 tab PO Q4H PRN #180 tab 06/28/21 07/29/21 Rx mg tablet LORazepam [Lorazepam] 0.5 mg PO TID 07/29/21 07/30/21 History Quetiapine Fumarate 50 mg PO DAILY 07/29/21 07/29/21 History Albuterol Sulfate [Albuterol 1.25 mg IH Q2HP PRN 07/30/21 07/30/21 History 0.042% 1.25mg/3mL neb] Ibuprofen [Ibuprofen 400mg 400 mg PO Q8HP PRN 07/30/21 07/30/21 History Tablet] Melatonin 6 mg PO HS 07/30/21 07/30/21 History Mirtazapine 7.5 mg PO HS 07/30/21 07/30/21 History Multivitamin [Multi-Vitamin Plain] 1 each PO DAILY 07/30/21 07/30/21 History Sennosides [Senna] 8.6 mg PO BIDP PRN 07/30/21 07/30/21 History Allergies Allergy/AdvReac Type Severity Reaction Status Date / Time cephalexin [From Keflex] Allergy Intermediate I-ITCHING Verified 05/12/21 18:31 acetaminophen [From PERCOCET] Allergy Unknown Verified 05/12/21 18:31 Iodinated Contrast Media Allergy U
--- NOTE | 2021-07-30 13:28 | DIET.NUTRFU ---
RD consulted secondary to admission questions: chewing/swallowing difficulties indicated. Patient was unable to answer questions secondary to dementia. She lives at [facility], called and spoke to nursing who verified she is on regular diet with good appetite. Will continue to monitor as diet advanced.
[2021-07-30 13:30] VITALS: BMI 18.6
--- NOTE | 2021-07-30 14:07 | PC.NURSE ---
Lab personnel at to draw blood
[2021-07-30 14:20] LABS: Hematocrit 29.4 % (37.0-47.0); Hemoglobin 9.6 g/dL (12.2-16.2)
--- NOTE | 2021-07-30 16:49 | HMH.DCSUM ---
General - General Admission date:: 07/29/21 HPI HPI: is an 85-year-old female with a history of osteoarthritis, GERD, COPD, asthma dementia, hypothyroidism, congestive heart failure, hypertension and depression who was sent to [facility] emergency room from [facility] due to noting blood in her stool. With presentation to the emergency room she was found to be stable with a blood pressure 164/94. She was afebrile. Labs revealed a hemoglobin of 10.7 hematocrit of 33.4. Stool was positive for occult blood. She received A liter of IV fluids and IV Protonix. She was then admitted for further evaluation and treatment with a surgical consult. Hospital Course Hospital Course: She is admitted for observation and surgical consultation. She had a restless night due to her confusion. Repeat labs this morning show only slight drop in her hemoglobin to 9.7. She has been hemodynamically stable. Dr. Michael saw the patient in consultation and felt that the risk of any diagnostic procedures outweighed the benefits of pursuing further work-up. Based on her CT scan, her differential diagnoses include an infectious process versus inflammatory versus a malignancy. I have spoken with her hospice nurse and the family does not wish to pursue any aggressive diagnostic or therapeutic treatment and wished for her to return to [facility] for ongoing palliative care. She will be discharged with a course of Levaquin for possible colitis. However if she continues to have rectal bleeding, symptoms will be managed by hospice and her attending physician at [facility] in order to keep her comfortable. Objective Vital signs: Temp Pulse Resp BP Pulse Ox 98.1 F 60 18 145/64 H 93 L 07/30/21 09:41 07/30/21 09:41 07/30/21 09:41 07/30/21 09:41 07/30/21 09:41 no acute distress, agitated - *Routine HEENT Exam Head: Present: normocephalic, atraumatic Eye: Absent: conjunctival icterus, scleral injection ENT: Present: mucous membranes moist - *Routine Respiratory Exam Present: decreased breath sounds. Absent: rales, wheezes - *Routine Cardiovascular Exam Present: RRR - *Routine Abdominal Exam Present: soft, normoactive bowel sounds. Absent: distended - *Routine Extremities Exam Absent: edema - *Routine Neurological Exam Present: altered mental status (confusion) Results Labs on day of discharge: Labs from last 24 hours 07/30/21 07/30/21 07/30/21 14:07 07:20 07:20 WBC 7.3 RBC 3.65 L Hgb 9.6 L 9.7 L Hct 29.4 L 29.3 L MCV 80.2 L MCH 26.6 L MCHC 33.2 RDW 18.7 H Plt Count 308 MPV 8.5 Neut % (Auto) 67.2 Lymph % (Auto) 20.7 [place] % (Auto) 7.3 Eos % (Auto) 4.0 Baso % (Auto) 0.8 Neut # (Auto) 4.9 Lymph # (Auto) 1.5 [place] # (Auto) 0.5 Eos # (Auto) 0.3 Baso # (Auto) 0.1 ESR Sodium 140 Potassium 3.6 Chloride 112 H Carbon Dioxide 25 Anion Gap 6.6 BUN 24 H D Creatinine 0.90 Estimated Creat Clear 27 Estimated GFR 59 Est GFR ( Amer) 72 Glucose 92 D Calcium 8.0 L Total Bilirubin AST ALT Alkaline Phosphatase C-Reactive Protein Total Protein Albumin Globulin Albumin/Globulin Ratio Amylase Lipase Procalcitonin Urine Color Urine Appearance Urine pH Ur Specific [place] Urine Protein Urine Glucose (UA) Urine Ketones Urine Blood Urine Nitrate Urine Bilirubin Urine Urobilinogen Ur Leukocyte Esterase Urine RBC Urine WBC Ur Squamous Epith Cells Urine Bacteria Stool Occult Blood SARS-CoV-2 (PCR) Influenza A Untype (PCR) Influenza Type B (PCR) 07/29/21 07/29/21 07/29/21 20:09 19:41 19:41 WBC RBC Hgb Hct MCV MCH MCHC RDW Plt Count MPV Neut % (Auto) Lymph % (Auto) [place] %
[2021-07-30 17:25] VITALS: BP 162/86; PULSE 68; RESP 17; TEMP 36.8; O2SAT 96
--- NOTE | 2021-07-31 16:00 | CARE MANAGER ---
Spoke with Juany at [facility] and she states that Ms. Banuelos is doing well and has no needs at this time.
== END 2021-07-30 16:10 | disposition hospice, inpatient (51) | DRG 392 ==
LOC: ER 21:59 → 2ND 22:25 → OB 07-30 01:20 → 2ND 07-30 14:58
PROVIDERS: Surgery; Admitting Provider Family Medicine; Emergency Provider Emergency Medicine; PCP Emergency Medicine; Visit Provider Family Medicine
DX: K52.9 Noninfective gastroenteritis and colitis, unspecified (principal); Z20.822 Contact with and (suspected) exposure to COVID-19; E03.9 Hypothyroidism, unspecified; J44.9 Chronic obstructive pulmonary disease, unspecified; I11.0 Hypertensive heart disease with heart failure; I50.9 Heart failure, unspecified; F17.210 Nicotine dependence, cigarettes, uncomplicated; E78.5 Hyperlipidemia, unspecified; M81.0 Age-related osteoporosis without current pathological fracture; I73.9 Peripheral vascular disease, unspecified; M15.9 Polyosteoarthritis, unspecified; F03.90 Unspecified dementia, unspecified severity, without behavioral disturbance, psychotic disturbance, mood disturbance, and anxiety; G30.9 Alzheimer's disease, unspecified; F02.80 Dementia in other diseases classified elsewhere, unspecified severity, without behavioral disturbance, psychotic disturbance, mood disturbance, and anxiety; I65.29 Occlusion and stenosis of unspecified carotid artery; K21.9 Gastro-esophageal reflux disease without esophagitis; F41.9 Anxiety disorder, unspecified; Z96.651 Presence of right artificial knee joint
CPT/HCPCS: 36415; 71045; 74177; 80048; 80053; 81001; 82150; 82272; 83690; 84145; 85014; 85018; 85025; 85651; 86140; 87086; 96365; 96375; 99285; C9803; G0328; Q9967; U0003; U0005

== ENCOUNTER 2021-09-03 14:40 | Emergency (ER) | payer OTHER, MEDICARE, MEDICAID, SELFPAY ==
[2021-09-03] VITALS (7 sets, daily range): BP systolic 102–175; BP diastolic 45–63; PULSE 55–57; RESP 16–20; TEMP 36.9; O2SAT 94–98; BMI 20.5
--- NOTE | 2021-09-03 14:51 | HMH.EDGENADL ---
ED Disposition Clinical Impression: Fall from wheelchair Qualifiers: Encounter type: initial encounter Qualified Code(s): W05.0XXA - Fall from non-moving wheelchair, initial encounter Facial contusion Qualifiers: Encounter type: initial encounter Qualified Code(s): S00.83XA - Contusion of other part of head, initial encounter Facial laceration Qualifiers: Encounter type: initial encounter Qualified Code(s): S01.81XA - Laceration without foreign body of other part of head, initial encounter Disposition: Home, Self-Care Condition on Discharge: Good Instructions: How to Prevent Falls, DI for Closed Head Injury, DI for Laceration Repair-Skin Glue Referrals: Calvin Mchugh MD [Primary Care Provider] - - Critical Care Critical Care Time: No Attestation: On 09/03/21, the high probability of a clinically significant, sudden or life threatening deterioration of the following system(s) required my full and direct attention, intervention and personal management. The time I documented below is in addition to time spent performing reported procedures but includes the following listed in this critical care notation. Medical Decision Making - Gurpreet Inquiry Pt receiving controlled substance: No Vital Signs: 09/03/21 14:40 09/03/21 15:00 09/03/21 15:30 Temperature 98.5 F Temperature Source Oral Pulse Rate 57 L 55 L Pulse Rate [Radial] 57 L Respiratory Rate 18 16 18 Blood Pressure 164/50 H 153/50 H Blood Pressure [Right Arm] 114/45 L Blood Pressure Mean [Right Arm] 68 Blood Pressure Position [Right Arm] Sitting 02 Sat by Pulse Oximetry 98 96 96 Oxygen Delivery Method Room Air 09/03/21 16:00 Temperature Temperature Source Pulse Rate 57 L Pulse Rate [Radial] Respiratory Rate 18 Blood Pressure 102/54 L Blood Pressure [Right Arm] Blood Pressure Mean [Right Arm] Blood Pressure Position [Right Arm] 02 Sat by Pulse Oximetry 94 L Oxygen Delivery Method - Radiology Data #1 Image(s): Shoulder, Hip Image Reviewed: Yes I reviewed the patient's radiology image Preliminary Findings: Abnormal Preliminary interpretations by me: Right shoulder no fracture dislocation Left hip shows no fracture or dislocation. Probable old fracture of left pubic rami, unchanged from previous x-rays. Vascular stent present. Orthopedic hardware lumbar spine and right humerus, intact. Procedure(s): XR shoulder RT min 2V Accession Number(s): [id number] cc: Calvin Mchugh MD; Ronal Arellano MD~ FINAL REPORT CLINICAL HISTORY: FALL, right shoulder pain FINDINGS: RIGHT SHOULDER: 3 views of the right shoulder were obtained. There is no acute fracture or dislocation. There is mild AC joint degenerative change. Vascular calcifications are present. IMPRESSION: No acute fracture Reviewed, Interpreted and Dictated by Ronal Arellano III, MD Transcribed by Williams Fleming Authenticated by Ronal Arellano III, MD on 09/03/2021 03:57:08 PM [facility] Procedure(s): XR hip LT 2-3V w/pelvis Accession Number(s): [id number] cc: Calvin Mchugh MD; Ronal Arellano MD~ FINAL REPORT CLINICAL HISTORY: FALL PAIN COMPARISON: CT abdomen and pelvis dated July 29, 2021 FINDINGS: 2 views of the left hip and an AP pelvis were obtained. There are chronic fractures of the medial left superior and inferior pubic rami. The bones are osteopenic. There is no acute fracture or dislocation. There are mild degenerative changes. Vascular calcifications are present. There are bilateral femoral stents. IMPRESSION: No acute fracture. Reviewed, Interpreted and Dictated by Ronal Arellano III, MD Transcribed by Williams Fleming Authenticated by Ronal Arellano III, MD on 09/03/2021 04:17:48 PM [facility] - CT Data CT Scan: Head, C-Spine Time Received: 16:[address] Reviewed: Yes: I have viewed the radiologist's interpretation Findings Narrative: Procedure(s): C
--- NOTE | 2021-09-03 14:55 | CT_ITS ---
FINAL REPORT CLINICAL HISTORY: FALL, knot on rt side of forehead above eye FINDINGS: Axial images of the head were obtained without contrast. Coronal reformatted images were also obtained. This study was performed with techniques to keep radiation doses as low as reasonably achievable (ALARA). Individualized dose reduction techniques using automated exposure control or adjustment of mA and/or kV according to the patient's size were employed. There is generalized age-appropriate atrophy. Periventricular low-attenuation areas are seen consistent with moderate chronic ischemic changes. There is mild ventriculomegaly. There are basal ganglia calcifications. There is no evidence of intracranial hemorrhage or mass. There is no evidence of acute infarct. There is no evidence of shift of the midline structures. No skull abnormality is seen on the bone window images. There is a right frontal scalp hematoma. IMPRESSION: Mild ventriculomegaly. Atrophy and moderate periventricular chronic ischemic changes. No acute intracranial abnormality identified. Reviewed, Interpreted and Dictated by Ronal Arellano III, MD Transcribed by Williams Fleming Authenticated by Ronal Arellano III, MD on 09/03/2021 04:17:49 PM [facility]
--- NOTE | 2021-09-03 14:55 | XR_ITS ---
FINAL REPORT CLINICAL HISTORY: FALL PAIN COMPARISON: CT abdomen and pelvis dated July 29, 2021 FINDINGS: 2 views of the left hip and an AP pelvis were obtained. There are chronic fractures of the medial left superior and inferior pubic rami. The bones are osteopenic. There is no acute fracture or dislocation. There are mild degenerative changes. Vascular calcifications are present. There are bilateral femoral stents. IMPRESSION: No acute fracture. Reviewed, Interpreted and Dictated by Ronal Arellano III, MD Transcribed by Williams Fleming Authenticated by Ronal Arellano III, MD on 09/03/2021 04:17:48 PM [facility]
--- NOTE | 2021-09-03 14:55 | XR_ITS ---
FINAL REPORT CLINICAL HISTORY: FALL, right shoulder pain FINDINGS: RIGHT SHOULDER: 3 views of the right shoulder were obtained. There is no acute fracture or dislocation. There is mild AC joint degenerative change. Vascular calcifications are present. IMPRESSION: No acute fracture Reviewed, Interpreted and Dictated by Ronal Arellano III, MD Transcribed by Williams Fleming Authenticated by Ronal Arellano III, MD on 09/03/2021 03:57:08 PM [facility]
--- NOTE | 2021-09-03 14:56 | CT_ITS ---
FINAL REPORT CLINICAL HISTORY: FALL FINDINGS: Axial CT images of the cervical spine were obtained without contrast. Sagittal and coronal reformatted images were also obtained. This study was performed with techniques to keep radiation doses as low as reasonably achievable (ALARA). Individualized dose reduction techniques using automated exposure control or adjustment of mA and/or kV according to the patient's size were employed. There is no evidence of fracture or dislocation. The bony alignment is normal. There is moderate degenerative change. There is no evidence of canal stenosis. No paraspinous soft tissue abnormality is seen. Limited images of the upper thorax are unremarkable. There is postoperative change of the right side of the neck. IMPRESSION: No fracture or acute bony abnormality identified. Reviewed, Interpreted and Dictated by Ronal Arellano III, MD Transcribed by Williams Fleming Authenticated by Ronal Arellano III, MD on 09/03/2021 03:57:08 PM [facility]
--- NOTE | 2021-09-03 16:55 | PC.NURSE ---
notified [facility] of transport back to [facility].
--- NOTE | 2021-09-03 17:00 | PC.NURSE ---
Report called to Britany at [facility]
--- NOTE | 2021-09-03 17:17 | PC.NURSE ---
[facility] here to transport patient back to [facility]
== END 2021-09-03 17:30 | disposition home or self-care (01) ==
PROVIDERS: Emergency Provider Emergency Medicine; PCP Emergency Medicine
DX: S01.81XA Laceration without foreign body of other part of head, initial encounter (principal); W05.0XXA Fall from non-moving wheelchair, initial encounter; M25.511 Pain in right shoulder; M25.552 Pain in left hip; F41.9 Anxiety disorder, unspecified; I65.29 Occlusion and stenosis of unspecified carotid artery; J44.9 Chronic obstructive pulmonary disease, unspecified; I11.0 Hypertensive heart disease with heart failure; I50.9 Heart failure, unspecified; E78.5 Hyperlipidemia, unspecified; M81.0 Age-related osteoporosis without current pathological fracture; I73.9 Peripheral vascular disease, unspecified
CPT/HCPCS: 70450; 72125; 73030; 73502; 99284

== ENCOUNTER 2021-10-06 13:27 | Inpatient (IN) | payer OTHER, MEDICARE, MEDICAID, SELFPAY ==
[2021-10-06] VITALS (13 sets, daily range): BP systolic 113–155; BP diastolic 45–73; PULSE 84–93; RESP 18–20; TEMP 36.9–38.3; O2SAT 93–100; BMI 16.5
--- NOTE | 2021-10-06 13:35 | PC.NURSE ---
PTS LINENS AND ATTENDS CHANGED, MULTIPLE AREAS OF WOUNDS COVERED/DRESSED. NO ACTIVE DRAINAGE NOTED
--- NOTE | 2021-10-06 13:42 | PC.NURSE ---
DAUGHTER AT BEDSIDE, UPDATED AT THIS TIME.
--- NOTE | 2021-10-06 14:04 | HMH.EDGENADL ---
ED Disposition Clinical Impression: Sialadenitis, Dehydration, Hypernatremia Disposition: Admitted as Observation Condition on Discharge: Fair Referrals: Jhon Mercado MD [Primary Care Provider] - - Critical Care Critical Care Time: No Attestation: On 10/06/21, the high probability of a clinically significant, sudden or life threatening deterioration of the following system(s) required my full and direct attention, intervention and personal management. The time I documented below is in addition to time spent performing reported procedures but includes the following listed in this critical care notation. Medical Decision Making - Gurpreet Inquiry Pt receiving controlled substance: Yes Gurpreet was queried for this patient: No Reason not queried -: Emergent pt cond-no time Risks and benefits of using a controlled substance: were not discussed with pt by me Vital Signs: 10/06/21 13:25 10/06/21 14:00 10/06/21 14:30 Temperature 100.8 F H Temperature Source Rectal Pulse Rate 92 H 93 H Pulse Rate [Brachial] 84 Respiratory Rate 20 Blood Pressure 127/73 138/64 Blood Pressure [Right Arm] 114/60 Blood Pressure Mean 81 78 Blood Pressure Mean [Right Arm] 78 Blood Pressure Source [Right Arm] Automatic Cuff Blood Pressure Position [Right Arm] Sitting 02 Sat by Pulse Oximetry 100 99 Oxygen Delivery Method Nasal Cannula Oxygen Flow Rate (LPM) 2 10/06/21 15:00 Temperature Temperature Source Pulse Rate 91 H Pulse Rate [Brachial] Respiratory Rate Blood Pressure 143/62 H Blood Pressure [Right Arm] Blood Pressure Mean 81 Blood Pressure Mean [Right Arm] Blood Pressure Source [Right Arm] Blood Pressure Position [Right Arm] 02 Sat by Pulse Oximetry 98 Oxygen Delivery Method Oxygen Flow Rate (LPM) - Lab Data Lab Results 10/06/21 14:15: WBC 21.5 H*, RBC 4.59, Hgb 12.1 L, Hct 38.0, MCV 82.8, MCH 26.3 L, MCHC 31.8, RDW 15.5, Plt Count 434 H, MPV 8.9, Neut % (Auto) 91.5 H, Lymph % (Auto) 5.6 L, Mcdonald % (Auto) 2.9, Eos % (Auto) 0.1, Baso % (Auto) 0.6, Neut # (Auto) 19.7 H, Lymph # (Auto) 1.2, Mcdonald # (Auto) 0.6, Eos # (Auto) 0.0, Baso # (Auto) 0.1, Total Counted 100, Neutrophils % (Manual) 82 H, Lymphocytes % (Manual) 14, Monocytes % (Manual) 4, Platelet Estimate Normal, Hypochromasia 2+ 10/06/21 14:15: Sodium 168 H*, Potassium 4.8, Chloride 132 H, Carbon Dioxide 31 H, Anion Gap 9.8, BUN 58 H, Creatinine 1.80 H, Estimated Creat Clear 14, Estimated GFR 27 L, Est GFR ( Amer) 32 L, Glucose 135 H, Calcium 9.5, Total Bilirubin 0.2, AST 31, ALT 31, Alkaline Phosphatase 143 H, Total Protein 7.4, Albumin 3.4 L, Globulin 4.0 H, Albumin/Globulin Ratio 0.9 L 10/06/21 14:15: Lactate 1.8 Result diagrams: 10/06/21 14:15 10/06/21 14:15 Orders (Tests/Meds): ED MEDICATIONS Generic Name Dose Route Start Last Admin Trade Name Freq PRN Reason Stop Dose Admin Clindamycin Phosphate 600 mg/ 104 mls @ 100 mls/hr 10/06/21 17:15 10/06/21 17:18 Sodium Chloride IV 10/20/21 17:14 100 mls/hr Q6H ELENA Administration Sodium Chloride 10 ml 10/06/21 14:22 Sodium Chloride 0.9% 10ml Vial IV 11/05/21 14:21 NEEDED PRN to Dilute Lorazepam inj Discontinued Medications Generic Name Dose Route Start Last Admin Trade Name Freq PRN Reason Stop Dose Admin Lorazepam 0.5 mg 10/06/21 14:22 10/06/21 14:28 Lorazepam 2mg/Ml Vial IV 10/06/21 14:23 0.5 mg ONCE ONE Administration Morphine Sulfate 4 mg 10/06/21 14:23 10/06/21 14:28 Morphine 4mg/Ml Syringe IV 10/06/21 14:24 4 mg ONCE ONE Administration Sodium Chloride 1,000 ml 10/06/21 15:14 10/06/21 15:25 Sodium Chloride 0.9% 1000ml Bag IV 10/06/21 15:15 1,000 ml BOLUS ONE Administration ORDERS Category Date Time Status Blood Culture Stat Micro 10/06/21 14:05 Received - Physician Consults Physician Consulted: Bam Time: 17:25 Reason -: Admission Comment/Response: Agrees to admit the
--- NOTE | 2021-10-06 14:26 | CT_ITS ---
PROCEDURE INFORMATION: Exam: CT Neck Without Contrast Exam date and time: 10/06/2021 3:13 PM Age: 85 years old Clinical indication: Cellulitis of neck and mass, lump, or swelling in neck; Left; Additional info: Neck swelling and pain TECHNIQUE: Imaging protocol: Computed tomography of the neck without contrast. Radiation optimization: All CT scans at this facility use at least one of these dose optimization techniques: automated exposure control; mA and/or kV adjustment per patient size (includes targeted exams where dose is matched to clinical indication); or iterative reconstruction. COMPARISON: CT CERVICAL SPINE WO CON 09/03/2021 3:04 PM FINDINGS: Pharynx: Unremarkable. No significant tonsillar enlargement. Larynx: Unremarkable. Epiglottis is normal. Prevertebral and retropharyngeal spaces: Unremarkable. Salivary glands: The left submandibular gland appears enlarged and inflamed consistent with submandibular sialadenitis. There is regional soft tissue edema consistent with cellulitis. No discrete abscess identified. No obstructing ductal calcification seen. Thyroid: There is a stable 1.6 cm dominant right thyroid nodule. Thyroid ultrasound may be performed for further characterization. Lymph nodes: No pathologically enlarged lymph nodes identified. Trachea: Visualized trachea is unremarkable. Lungs: Unremarkable as visualized. Bones/joints: Severe degenerative changes at C1-C2. Cervical degenerative disc disease, in particular C5-C6 and C6-C7 levels. There is slight degenerative retrolisthesis of C5 on C6. Vasculature: Proximal left subclavian artery calcified atherosclerosis causing moderate versus severe stenosis, difficult to assess the degree of luminal narrowing on this noncontrast exam which is motion degraded. Soft tissues: There are right neck surgical clips. IMPRESSION: 1. Images are motion degraded. 2. Findings consistent with left submandibular sialadenitis. 3. There is a 1.6 cm dominant right thyroid nodule. Thyroid ultrasound may be performed for further characterization. COMMENTS: Consistent with the [place] [employer]'s Incidental Findings Committee white paper (J Am Jones Radiol 2015): In patients aged 35 years and older with an incidental thyroid nodule equal to or greater than 1.[address], MRI or extrathyroidal US, further evaluation with dedicated thyroid US is recommended for patients with normal life expectancy and without comorbidities. For smaller nodules without suspicious features, no further evaluation or follow up is recommended.
--- NOTE | 2021-10-06 14:34 | PC.NURSE ---
1415 PTS DAUGHTER REQUESTING PT BE MEDICATED. NOTIFIED 1419 MED VERIFICATION WITH NURSE AT [facility], LAST MEDICATED AT [phone] THIS AM, MD NOTIFIED AND MEDS ORDERED PT MEDICATED PER EMAR. DAUGHTER AT BEDSIDE. NO FURTHER CONCERNS AT THIS TIME.
[2021-10-06 14:46] LABS: Basophils # 0.1 K/mm3 (0-0.2); Basophils % 0.6 % (0.1-2.0); Eosinophils % 0.1 % (0.1-12.0); Hemoglobin 12.1 g/dL (12.2-16.2); Lactic Acid 1.8 mmol/L (0.7-2.1); Lymphocytes # 1.2 K/mm3 (0.7-4.5); Lymphocytes % 5.6 % (10-50); Mean Corpuscular HGB Conc 31.8 g/dL (31.8-35.4); Mean Corpuscular Hemoglobin 26.3 pg (27.0-31.2); Mean Corpuscular Volume 82.8 fl (81-99); Mean Platelet Volume 8.9 fl (7.4-10.4); Monocytes # 0.6 K/mm3 (0.1-1.0); Monocytes % 2.9 % (1.7-9.3); Neutrophils # 19.7 K/mm3 (1.8-7.8); Neutrophils % 91.5 % (37.0-80.0); Platelet Count 434 K/mm3 (142-424); Red Blood Count 4.59 M/mm3 (4.20-5.40); Red Cell Distribution Width 15.5 % (11.5-17.5); White Blood Count 21.5 K/mm3 (4.8-10.8)
[2021-10-06 14:48] LABS: MANUAL DIFFERENTIAL MANUAL DIFFERENTIAL (MANUAL DIFF)
[2021-10-06 14:54] LABS: Potassium 4.8 mmoL/L (3.5-5.1)
[2021-10-06 14:56] LABS: Alanine Aminotransferase 31 U/L (12-78); Aspartate Amino Transferase 31 U/L (14-36); Blood Urea Nitrogen 58 mg/dl (7-17); Creatinine Clearance Estimated 14 mL/min (50-200); Estimated Glomerular Filt Rate 27 ml/min (>60); GFR (African American) 32 ML/MIN (>60)
[2021-10-06 14:57] LABS: Albumin Level 3.4 g/dl (3.5-5.0); Albumin/Globulin Ratio 0.9 (1.1-1.8); Alkaline Phosphatase 143 U/L (38-126); Anion Gap 9.8 mEq/L (5-15); Bilirubin,Total 0.2 mg/dl (0.2-1.3); Carbon Dioxide 31 mmol/L (22.0-30.0); Total Protein,Serum 7.4 g/dl (6.3-8.2)
[2021-10-06 15:02] LABS: Glucose 135 mg/dl (74-100)
[2021-10-06 15:08] LABS: Chloride 132 mmol/L (98-107); Sodium 168 mmol/L (136-145)
--- NOTE | 2021-10-06 15:13 | PC.NURSE ---
PT TO CT AT THIS TIME
[2021-10-06 15:16] LABS: Calcium 9.5 mg/dl (8.4-10.2)
[2021-10-06 15:25] LABS: Lymphocytes % 14 % (10-50); Monocytes % 4 % (2-9); Neutrophils % 82 % (42-76); Total Cells Counted 100
[2021-10-06 15:26] LABS: Hypochromasia 2+; Platelet Estimate Normal
--- NOTE | 2021-10-06 15:26 | PC.NURSE ---
[address]
--- NOTE | 2021-10-06 16:19 | PC.NURSE ---
FAMILY UPDATED AT THIS TIME
--- NOTE | 2021-10-06 17:17 | PC.NURSE ---
PAGED DR RITCHIE
--- NOTE | 2021-10-06 17:21 | PC.NURSE ---
FAMILY AT BEDSIDE, NO NEEDS AT THIS TIME
--- NOTE | 2021-10-06 17:23 | PC.NURSE ---
DR RITCHIE SPEAKING WITH JOSE MARTÍNEZ
--- NOTE | 2021-10-06 17:27 | PC.NURSE ---
SPEAKING WITH DAUGHTER
--- NOTE | 2021-10-06 18:30 | PC.NURSE ---
Khalida BAEZA Called, Parvez SUP, Kaykay BAEZA for admission
[2021-10-06 18:31] LABS: Coronavirus 19, PCR Not Detected (NotDetected); Influenza A, PCR Not Detected (NotDetected); Influenza B, PCR Not Detected (NotDetected)
--- NOTE | 2021-10-06 19:05 | PC.NURSE ---
REPORT GIVEN TO ARYAN HOPPER AT THIS TIME
--- NOTE | 2021-10-06 19:35 | PC.NURSE ---
PT ARRIVED TO FLOOR VIA STRETCHER FROM ED W/STAFF @ 1934
[2021-10-07 06:59] LABS: Basophils # 0.1 K/mm3 (0-0.2); Basophils % 0.4 % (0.1-2.0); Eosinophils % 0.1 % (0.1-12.0); Hematocrit 33.5 % (37.0-47.0); Lymphocytes # 1.8 K/mm3 (0.7-4.5); Lymphocytes % 6.7 % (10-50); Mean Corpuscular HGB Conc 31.5 g/dL (31.8-35.4); Mean Corpuscular Hemoglobin 26.3 pg (27.0-31.2); Mean Corpuscular Volume 83.6 fl (81-99); Mean Platelet Volume 9.4 fl (7.4-10.4); Monocytes # 0.9 K/mm3 (0.1-1.0); Monocytes % 3.3 % (1.7-9.3); Neutrophils # 23.5 K/mm3 (1.8-7.8); Neutrophils % 89.5 % (37.0-80.0); Platelet Count 356 K/mm3 (142-424); Red Cell Distribution Width 15.3 % (11.5-17.5); White Blood Count 26.3 K/mm3 (4.8-10.8)
[2021-10-07 07:01] LABS: MANUAL DIFFERENTIAL MANUAL DIFFERENTIAL (MANUAL DIFF); Potassium 4.4 mmoL/L (3.5-5.1)
[2021-10-07 07:02] LABS: Hemoglobin 10.5 g/dL (12.2-16.2)
[2021-10-07 07:04] LABS: Anion Gap 10.4 mEq/L (5-15); Blood Urea Nitrogen 65 mg/dl (7-17); Calcium 8.4 mg/dl (8.4-10.2); Carbon Dioxide 24 mmol/L (22.0-30.0); Creatinine Clearance Estimated 13 mL/min (50-200); Estimated Glomerular Filt Rate 24 ml/min (>60); GFR (African American) 29 ML/MIN (>60); Glucose 115 mg/dl (74-100)
[2021-10-07 07:11] LABS: Sodium 168 mmol/L (136-145)
[2021-10-07 07:12] LABS: Chloride 138 mmol/L (98-107)
--- NOTE | 2021-10-07 07:29 | PC.NURSE ---
Pt daughter at bedside. Spoke with daughter in length about hospice and end of life care. Daughter appeared receptive to teaching. Feels guilty for the situation her mother is in. Pain medication admin. q4 hrs. With relief but appeared to need more sooner than Q4hrs. Passed on to day shift. Also Pt with a critical sodium and Chloride. Day nurse calling MD at this time. Pt noted to have morphine as an allergy but it is not a true allergy and Daughter wanted Pt to have Morphine. No reaction noted with giving her the morphine last night.
--- NOTE | 2021-10-07 07:34 | P.CONPHA_ITS ---
[facility] Pharmacy VTE Monitoring - Patient Demographics Admission date: 10/06/21 Report Date: 10/07/21 Time: 07:34 Allergies/Adverse Reactions: Patient Allergies cephalexin [From Keflex] Allergy (Intermediate, Verified 08/07/21 09:46) I-ITCHING acetaminophen [From PERCOCET] Allergy (Unknown, Verified 08/07/21 09:46) Iodinated Contrast Media [Iodinated Contrast Media - IV Dye] Allergy (Unknown, Verified 08/07/21 09:46) oxycodone [From PERCOCET] Allergy (Unknown, Verified 08/07/21 09:46) morphine Adverse Reaction (Intermediate, Verified 08/07/21 09:46) LOSE MY MIND propoxyphene Adverse Reaction (Intermediate, Verified 08/07/21 09:46) LOSE MY MIND Height: 1.57 m Weight: 40.823 kg Patient Problems: Current Active Problems Sialadenitis (Acute) Dehydration (Acute) Hypernatremia (Acute) - VTE Risk Labs: VTE Related Lab Results Hgb 10.5 g/dL (12.2-16.2) L D 10/07/21 06:26 Hct 33.5 % (37.0-47.0) L 10/07/21 06:26 Plt Count 356 K/mm3 (142-424) 10/07/21 06:26 BUN 65 mg/dl (7-17) H 10/07/21 06:26 Creatinine 2.00 mg/dl (0.52-1.04) H 10/07/21 06:26 Estimated Creat Clear 13 mL/min (50-200) 10/07/21 06:26 VTE Score: 6 VTE Risk Level: Moderate Risk - Prophylaxis VTE Prophylaxis Ordered?: Yes Types of VTE Prophylaxis: TEDS Knee High Location of Applied Device: Bilateral Lower Extremeties
--- NOTE | 2021-10-07 07:41 | HMH.PHAINT ---
MEDICATION RECONCILIATION COMPLETED ON PATIENT USING MAR FROM INTERMEDIATE. -PRADIP MYERS, SIRIAD
[2021-10-07 08:00] VITALS: BP 116/45; PULSE 90; RESP 18; TEMP 38; O2SAT 99; BMI 17.0
--- NOTE | 2021-10-07 08:01 | DIET.NUTRFU ---
RD reviewed diet order, according to [facility] diet was recently downgraded to nectar thick liquids with puree solids. Will continue to follow meal intake and diet tolerance
[2021-10-07 08:06] LABS: Lymphocytes % 9 % (10-50); Monocytes % 3 % (2-9); Neutrophils % 88 % (42-76); Platelet Estimate Normal; Total Cells Counted 100
[2021-10-07 08:07] LABS: RBC Morphology Normal
--- NOTE | 2021-10-07 09:08 | HMH.HP ---
*Admission Date: 10/06/21 *Chief complaint: Neck pain *History of present illness: Ms. Banuelos is an 85-year-old female patient at [facility] With a history of Progressive dementia , anxiety, congestive heart failure, COPD, depression, GERD, hypertension, peripheral vascular disease, osteoporosis, arthritis, and hypothyroidism who was brought to [facility] emergency room For evaluation of pain and swelling on the left side of her neck which occurred overnight. The patient is noted to be a hospice patient. History is mostly obtained from the daughter and ER records. Recently diet was changed to liquids and thickened liquids due to inability to swallow food. She has had minimal p.o. intake for the last few days and has been unable to swallow her pills. With evaluation in the emergency room CT of the neck without contrast revealed Findings consistent with a left submandibular sialaswnitis. She also was noted to have a 1.6 cm dominant right thyroid nodule. CBC on admission showed white blood cell count of 21,500 with a repeat this a.m. of 26,300. Hemoglobin has decreased from 12.1to10.5. Chemistries are noted with a sodium of 168; potassium is normal at 4.8, chlorides 132 and CO2 is 31. BUN is 58 with a creatinine of 1.8 with repeat this morning of 65 and 2. Daughter is at bedside. She states she saw her at the beginning of last week at which time she seemed to be more alert. She notes a definite decline with minimal response today. Patient is also noted to have a fever for which she is now receiving a Tylenol suppository. Patient does not respond to verbal or tactile stimulus at this time. [facility] History Medical History: Reports:: Anxiety, Carotid Stenosis, Congestive Heart Failure, Chronic Obstructive Pulmonary Disease (COPD), Depression, Gastroesophageal Reflux Disease(GERD), Hyperlipidemia, Hypertension, Osteoporosis, Peripheral Vascular Disease Denies:: Cancer, Diabetes Mellitus Type 1, Diabetes Mellitus Type 2, MRSA *Have you ever received a pneumonia vaccine?: No *Have you received a flu vaccine this season?: No Other Medical History: Reports: Arthritis, Cataracts (REMOVED 2007), Hypothyroidism, Osteoporosis Laterality Cases: Bilateral: Arthroscopy Knee Other Surgeries: Yes: Cholecystectomy, Colonoscopy, EGD, Hysterectomy-Total, Other Amputation: No Fractures: Yes (PELVIS,) - *Social History Last grade of school completed: High school graduate Smoking Status: Current some day smoker Tobacco Type: cigarettes # Packs/Day (cigarettes): 1 #Yrs smoked (if former smoker): 52 Alcohol Intake: never Alcohol Intake Frequency:: other Substance Use Type: denies use *Occupational Status:: disabled Housing: penitentiary Household Members: other *Travel in the last 8 weeks: None - Psychiatric History Pschychiatric History:: Reports:: Anxiety, Depression Family Hx:: Unable to obtain Review of Systems - Constitutional Reports fever(s) - Eyes Reports other (Unknown) - ENT Reports abnormal hearing (Hard of hearing) - *Cardiovascular Reports other (Unknown) - *Respiratory Denies cough - *Gastrointestinal Denies loose stools, Denies vomiting - *Genitourinary Reports other (Unknown) - *Neurologic Reports other (Does not respond) Meds Home Medications Medication Instructions Recorded Confirmed Type Bisacodyl [Bisacodyl 10mg Supp] 10 mg RC DAILYP PRN 10/06/21 10/06/21 History Morphine Sulfate 0.25 ml PO Q4HP PRN 10/06/21 10/07/21 History Ondansetron [Zofran 4mg ODT] 4 mg PO Q6HP PRN 10/06/21 10/07/21 History Acetaminophen [Acetaminophen Extra 500 mg PO Q6HP PRN 10/07/21 10/07/21 History Strength] Hydrocod/Acet 5/325 mg [Lee 1 tab PO Q4HP PRN 10/07/21 10/07/21 History 5/325mg tablet] Hydrocodone/Acetaminophen 1 tab PO TID 10/07/21 10/07/21 History [Hydrocodone-Acetamin 5-325 mg] Hydrocortisone [Hydrocortisone 1% 1 applic TP TID 10/07/21 10/07/21 History Cream 30gm Tube]
--- NOTE | 2021-10-07 09:26 | US_ITS ---
FINAL REPORT CLINICAL HISTORY: left neck mass COMPARISON: CT dated October 06, 2021 FINDINGS: US LEFT NECK SOFT TISSUE: Sonographic images of the left side of the neck were obtained. There is a lobular mass in the left neck measuring 4.1 x 1.9 x 3.9 cm. This is inseparable from the left submandibular gland but it is uncertain if this is a left submandibular mass or adjacent to it. Appearance is worrisome for neoplasm or adenopathy. There are other small left neck nodes, likely reactive. IMPRESSION: Lobular mass left neck mass as above. Reviewed, Interpreted and Dictated by Ronal Arellano III, MD Transcribed by Opal Villagomez Authenticated and [facility]
--- NOTE | 2021-10-07 12:10 | SW/DCPLANNER ---
Addendum entered by [facility] 10/08/21 15:50: [facility] ([place]) report phone # [phone] fax # [phone] Addendum entered by [facility] 10/08/21 15:45: [facility] [place] [facility]. Patient will not require an additional COVID swab prior to discharge. I will update Dr Kuhn. Addendum entered by [facility] 10/08/21 15:07: Hospice [facility] is evaluating this patient now. Hospice nurse is working to discharge patient to [facility]. Nurse will call me once she has confirmation for discharge summary/order. Addendum entered by [facility] 10/08/21 11:49: Marybel lopez/ [facility] stated that patient's Hospice nurse, [place] and [employer] will be here today to speak with patient's daughter and make a safe discharge plan. I will follow up with Nurse, Lana and [employer] once they speak with family. Addendum entered by [facility] 10/08/21 11:37: Updated patient information has been faxed to Lisa lopez/ [facility] and [facility]. I have requested that patient's Hospice nurse contact me regarding discharge plans. I am currently waiting for a call back. Addendum entered by Aditi Schmitt RN 10/07/21 16:13: Hospice nurse contacted us and states that the stay is related. Addendum entered by [facility] 10/07/21 14:01: I am still waiting for patient's Hospice nurse to contact me back. I called the main office again and spoke with Karely and she stated that she does not have any nurses available at this time. Original Note: This patient currently resides at [facility] and is followed by [facility]. I have faxed patient information to [facility]: currently waiting a call back regarding if admission diagnosis is related. Discharge date is unknown at this time.
[2021-10-07 12:32] VITALS: BMI 17.0
[2021-10-07 19:46] LABS: Basophils # 0.1 K/mm3 (0-0.2); Basophils % 0.5 % (0.1-2.0); Eosinophils % 0.2 % (0.1-12.0); Hematocrit 33.2 % (37.0-47.0); Hemoglobin 10.4 g/dL (12.2-16.2); Lymphocytes # 1.2 K/mm3 (0.7-4.5); Lymphocytes % 6.5 % (10-50); Mean Corpuscular HGB Conc 31.2 g/dL (31.8-35.4); Mean Corpuscular Hemoglobin 26.4 pg (27.0-31.2); Mean Corpuscular Volume 84.7 fl (81-99); Mean Platelet Volume 10.3 fl (7.4-10.4); Monocytes # 0.7 K/mm3 (0.1-1.0); Monocytes % 3.6 % (1.7-9.3); Neutrophils # 16.4 K/mm3 (1.8-7.8); Neutrophils % 89.1 % (37.0-80.0); Platelet Count 304 K/mm3 (142-424); Red Blood Count 3.92 M/mm3 (4.20-5.40); Red Cell Distribution Width 15.3 % (11.5-17.5); White Blood Count 18.4 K/mm3 (4.8-10.8)
[2021-10-07 19:50] LABS: MANUAL DIFFERENTIAL MANUAL DIFFERENTIAL (MANUAL DIFF)
[2021-10-07 20:00] VITALS: BP 152/59; PULSE 81; RESP 16; TEMP 37.7; O2SAT 86
[2021-10-07 20:06] LABS: Potassium 4.1 mmoL/L (3.5-5.1)
[2021-10-07 20:09] LABS: Blood Urea Nitrogen 66 mg/dl (7-17); Creatinine Clearance Estimated 15 mL/min (50-200); Estimated Glomerular Filt Rate 27 ml/min (>60); GFR (African American) 32 ML/MIN (>60)
[2021-10-07 20:10] LABS: Anion Gap 12.1 mEq/L (5-15); Calcium 8.2 mg/dl (8.4-10.2); Carbon Dioxide 21 mmol/L (22.0-30.0); Glucose 121 mg/dl (74-100)
[2021-10-07 20:18] LABS: Chloride 138 mmol/L (98-107); Sodium 167 mmol/L (136-145)
[2021-10-07 21:15] LABS: Eosinophils % 1 % (0-3); Hypochromasia 1+; Lymphocytes % 8 % (10-50); Monocytes % 3 % (2-9); Neutrophils % 87 % (42-76); Platelet Estimate Normal; Total Cells Counted 100
--- NOTE | 2021-10-08 07:03 | PC.NURSE ---
Pt continues to decline. Pt has reduced 02 sat and is guppy breathing. Pt continues to have 02 on for comfort does not appear to be in distress. 02 sat in the 70's with 6l 02. Pt dtr at bedside. Wounds redressed last night. and turned frequently. Pt noted mottled on her buttocks. Hospice to be here today to discuss plan of care. Mobile service to assist with hospice services.
[2021-10-08 08:00] VITALS: BP 109/36; PULSE 89; RESP 22; TEMP 37.9; O2SAT 85; O2SAT 86
--- NOTE | 2021-10-08 08:02 | HMH.ACPN2 ---
Internal Medicine - PN: Subj *Date: 10/08/21 *Time: 12:35 Interval history: Daughter has remained at bedside. She states that her mother has appeared comfortable though she does not like to be returned. Hospice to visit today. She is in a quandary about ENT referral. Patient's continues with a low-grade fever. Labs repeated yesterday p.m. with a little decrease in her white blood cell count. Sodium was still low at 167. Stat labs have been ordered for this morning. 2 voids have been documented. O2 sats are low with 6 L of nasal O2 being administered. Orally due to mouth breathing. Ultrasound completed yesterday 10/07/2021 with the following results: FINDINGS: US LEFT NECK SOFT TISSUE: Sonographic images of the left side of the neck were obtained. There is a lobular mass in the left neck measuring 4.1 x 1.9 x 3.9 cm. This is inseparable from the left submandibular gland but it is uncertain if this is a left submandibular mass or adjacent to it. Appearance is worrisome for neoplasm or adenopathy. There are other small left neck nodes, likely reactive. IMPRESSION: Lobular mass left neck mass as above. Exam Vital signs and Labs for Last 24 Hours: Temp Pulse Resp BP Pulse Ox 99.9 F H 81 16 152/59 H 86 L 10/07/21 20:00 10/07/21 20:00 10/07/21 20:00 10/07/21 20:00 10/07/21 20:00 Laboratory Results - last 24 hr 10/07/21 06:26: Total Counted 100, Neutrophils % (Manual) 88 H, Lymphocytes % (Manual) 9 L, Monocytes % (Manual) 3, Platelet Estimate Normal, RBC Morphology Normal 10/07/21 19:40: WBC 18.4 H D, RBC 3.92 L, Hgb 10.4 L, Hct 33.2 L, MCV 84.7, MCH 26.4 L, MCHC 31.2 L, RDW 15.3, Plt Count 304, MPV 10.3, Neut % (Auto) 89.1 H, Lymph % (Auto) 6.5 L, Ponce % (Auto) 3.6, Eos % (Auto) 0.2, Baso % (Auto) 0.5, Neut # (Auto) 16.4 H, Lymph # (Auto) 1.2, Ponce # (Auto) 0.7, Eos # (Auto) 0.0, Baso # (Auto) 0.1, Total Counted 100, Neutrophils % (Manual) 87 H, Lymphocytes % (Manual) 8 L, Monocytes % (Manual) 3, Eosinophils % (Manual) 1, Basophils % (Manual) 1.0, Platelet Estimate Normal, Hypochromasia 1+ 10/07/21 19:40: Sodium 167 H*, Potassium 4.1, Chloride 138 H, Carbon Dioxide 21 L, Anion Gap 12.1, BUN 66 H, Creatinine 1.80 H, Estimated Creat Clear 15, Estimated GFR 27 L, Est GFR ( Amer) 32 L, Glucose 121 H, Calcium 8.2 L I & O for Last 24 hours: Intake & Output 10/05/21 10/06/21 10/07/21 10/08/21 11:59 11:59 11:59 11:59 Weight 92 lb 13.034 oz 92 lb 13.034 oz - Constitutional no acute distress (Resting on her left side and appears comfortable) - *Routine Respiratory Exam Present: other (More shallow respiratory effort with bilateral rhonchi) - *Routine Cardiovascular Exam Present: RRR (80/min) - *Routine Abdominal Exam Present: soft, normoactive bowel sounds - *Routine Extremities Exam Absent: edema - *Routine Neurological Exam Absent: alert (Not responding to tactile or verbal stimuli) Assessment and Plan (1) Dehydration Status: Acute Category: Medical Code(s): E86.0 - Dehydration (2) Hypernatremia Status: Acute Category: Medical Code(s): E87.0 - Hyperosmolality and hypernatremia (3) Sialadenitis Status: Acute Category: Medical Code(s): K11.20 - Sialoadenitis, unspecified (4) Rectal lesion Status: Acute Category: Medical Code(s): K62.9 - Disease of anus and rectum, unspecified (5) Alzheimer's dementia Status: Chronic Qualifiers: Alzheimer's disease onset: other onset Dementia behavioral disturbance: without behavioral disturbance Qualified Code(s): G30.8 - Other Alzheimer's disease; F02.80 - Dementia in other diseases classified elsewhere without behavioral disturbance Category: Medical Code(s): G30.9 - Alzheimer's disease, unspecified; F02.80 - Dementia in other diseases classified elsewhere without behavioral disturbance (6) COPD (chronic obstructive pulmonary disease) Status: Chronic Qualifiers: COPD type: unspecified CO
[2021-10-08 08:26] LABS: Potassium 3.9 mmoL/L (3.5-5.1)
[2021-10-08 08:29] LABS: Alanine Aminotransferase 25 U/L (12-78); Albumin Level 2.7 g/dl (3.5-5.0); Albumin/Globulin Ratio 0.8 (1.1-1.8); Alkaline Phosphatase 119 U/L (38-126); Anion Gap 7.9 mEq/L (5-15); Aspartate Amino Transferase 44 U/L (14-36); Bilirubin,Total 0.3 mg/dl (0.2-1.3); Blood Urea Nitrogen 66 mg/dl (7-17); Carbon Dioxide 25 mmol/L (22.0-30.0); Creatinine Clearance Estimated 12 mL/min (50-200); Estimated Glomerular Filt Rate 20 ml/min (>60); GFR (African American) 24 ML/MIN (>60); Globulin 3.3 g/dL (1.3-3.2); Glucose 180 mg/dl (74-100)
[2021-10-08 08:33] LABS: Basophils % 0.3 % (0.1-2.0); Eosinophils % 0.2 % (0.1-12.0); Hematocrit 31.1 % (37.0-47.0); Hemoglobin 9.8 g/dL (12.2-16.2); Lymphocytes # 0.8 K/mm3 (0.7-4.5); Lymphocytes % 6.3 % (10-50); Mean Corpuscular HGB Conc 31.6 g/dL (31.8-35.4); Mean Corpuscular Hemoglobin 26.6 pg (27.0-31.2); Mean Corpuscular Volume 84.4 fl (81-99); Mean Platelet Volume 10.4 fl (7.4-10.4); Monocytes # 0.4 K/mm3 (0.1-1.0); Monocytes % 3.3 % (1.7-9.3); Neutrophils # 11.2 K/mm3 (1.8-7.8); Neutrophils % 89.9 % (37.0-80.0); Platelet Count 274 K/mm3 (142-424); Red Blood Count 3.68 M/mm3 (4.20-5.40); Red Cell Distribution Width 15.3 % (11.5-17.5); White Blood Count 12.4 K/mm3 (4.8-10.8)
[2021-10-08 08:38] LABS: MANUAL DIFFERENTIAL MANUAL DIFFERENTIAL (MANUAL DIFF); Sodium 163 mmol/L (136-145)
[2021-10-08 08:39] LABS: Chloride 134 mmol/L (98-107)
--- NOTE | 2021-10-08 09:13 | HMH.ACPN2 ---
Internal Medicine - PN: Subj *Date: 10/08/21 *Time: 09:13 Interval history: I saw the patient this morning. Her note from the as needed [facility] is addressed to Dr. Mercado who is still out of town. The patient's overall status is stable. The lesion of the neck and jaw still present. There is not inflammation. It may be a little bit smaller. Her white blood cell count has come down. She still runs a fever. She is still a hospice patient and there has been discussion about hospital hospice management in the hospital. Ear nose and throat is not available until tomorrow. Exam Vital signs and Labs for Last 24 Hours: Temp Pulse Resp BP Pulse Ox 100.2 F H 89 22 109/36 L 85 L 10/08/21 08:00 10/08/21 08:00 10/08/21 08:00 10/08/21 08:00 10/08/21 08:00 Laboratory Results - last 24 hr 10/07/21 19:40: WBC 18.4 H D, RBC 3.92 L, Hgb 10.4 L, Hct 33.2 L, MCV 84.7, MCH 26.4 L, MCHC 31.2 L, RDW 15.3, Plt Count 304, MPV 10.3, Neut % (Auto) 89.1 H, Lymph % (Auto) 6.5 L, [place] % (Auto) 3.6, Eos % (Auto) 0.2, Baso % (Auto) 0.5, Neut # (Auto) 16.4 H, Lymph # (Auto) 1.2, [place] # (Auto) 0.7, Eos # (Auto) 0.0, Baso # (Auto) 0.1, Total Counted 100, Neutrophils % (Manual) 87 H, Lymphocytes % (Manual) 8 L, Monocytes % (Manual) 3, Eosinophils % (Manual) 1, Basophils % (Manual) 1.0, Platelet Estimate Normal, Hypochromasia 1+ 10/07/21 19:40: Sodium 167 H*, Potassium 4.1, Chloride 138 H, Carbon Dioxide 21 L, Anion Gap 12.1, BUN 66 H, Creatinine 1.80 H, Estimated Creat Clear 15, Estimated GFR 27 L, Est GFR ( Amer) 32 L, Glucose 121 H, Calcium 8.2 L 10/08/21 08:10: WBC 12.4 H D, RBC 3.68 L, Hgb 9.8 L, Hct 31.1 L, MCV 84.4, MCH 26.6 L, MCHC 31.6 L, RDW 15.3, Plt Count 274, MPV 10.4, Neut % (Auto) 89.9 H, Lymph % (Auto) 6.3 L, [place] % (Auto) 3.3, Eos % (Auto) 0.2, Baso % (Auto) 0.3, Neut # (Auto) 11.2 H, Lymph # (Auto) 0.8, [place] # (Auto) 0.4, Eos # (Auto) 0.0, Baso # (Auto) 0.0 10/08/21 08:10: Sodium 163 H*, Potassium 3.9, Chloride 134 H, Carbon Dioxide 25, Anion Gap 7.9, BUN 66 H, Creatinine 2.30 H D, Estimated Creat Clear 12, Estimated GFR 20 L, Est GFR ( Amer) 24 L D, Glucose 180 H D, Calcium 8.0 L, Total Bilirubin 0.3, AST 44 H D, ALT 25, Alkaline Phosphatase 119, Total Protein 6.0 L, Albumin 2.7 L, Globulin 3.3 H, Albumin/Globulin Ratio 0.8 L I & O for Last 24 hours: Intake & Output 10/05/21 10/06/21 10/07/21 10/08/21 11:59 11:59 11:59 11:59 Output Total 0 / 0 Balance 0 / 0 Weight 92 lb 13.034 oz 92 lb 13.034 oz - Constitutional chronically ill appearing, somnolent - *Routine HEENT Exam Head: Present: normocephalic ENT: Present: mucous membranes moist - *Routine Neck Exam Present: swelling Comments: The lesion of sialadenitis seems basically unchanged. - *Routine Respiratory Exam Absent: respiratory distress (Though sats are poor, below 90.) - *Routine Cardiovascular Exam Present: RRR - *Routine Abdominal Exam Present: soft - *Routine Extremities Exam Absent: edema (Contractures present) - *Routine Skin Exam Present: intact. Absent: cyanosis - *Routine Neurological Exam Absent: alert, oriented X3 Assessment and Plan (1) Sialadenitis Status: Acute Category: Medical Code(s): K11.20 - Sialoadenitis, unspecified (2) Dehydration Status: Acute Category: Medical Code(s): E86.0 - Dehydration (3) Hypernatremia Status: Acute Category: Medical Code(s): E87.0 - Hyperosmolality and hypernatremia (4) Rectal lesion Status: Acute Category: Medical Code(s): K62.9 - Disease of anus and rectum, unspecified (5) Alzheimer's dementia Status: Chronic Qualifiers: Alzheimer's disease onset: other onset Dementia behavioral disturbance: without behavioral disturbance Qualified Code(s): G30.8 - Other Alzheimer's disease; F02.80 - Dementia in other diseases classified elsewhere without behavioral disturbance Category: Medical Code(s): G30.9 - Alzheimer's disease, unspe
[2021-10-08 09:20] LABS: Lymphocytes % 9 % (10-50); Monocytes % 3 % (2-9); Neutrophils % 88 % (42-76); Total Cells Counted 100
[2021-10-08 09:21] LABS: Hypochromasia 2+; Platelet Estimate Normal
--- NOTE | 2021-10-08 16:32 | HMH.DCSUM ---
General - General Admission date:: 10/06/21 Discharge date: 10/08/21 HPI HPI: Ms. Banuelos is an 85-year-old female patient at [facility] With a history of Progressive dementia , anxiety, congestive heart failure, COPD, depression, GERD, hypertension, peripheral vascular disease, osteoporosis, arthritis, and hypothyroidism who was brought to [facility] emergency room For evaluation of pain and swelling on the left side of her neck which occurred overnight. The patient was noted to be a hospice patient. History was mostly obtained from the daughter and ER records. Recently diet was changed to liquids and thickened liquids due to inability to swallow food. She had minimal p.o. intake for the previous few days and was unable to swallow her pills. With evaluation in the emergency room CT of the neck without contrast revealed Findings consistent with a left submandibular sialaswnitis. She also was noted to have a 1.6 cm dominant right thyroid nodule. CBC on admission showed white blood cell count of 21,500 with a repeat this a.m. of 26,300. Hemoglobin did decrease from 12.1to10.5. Chemistries noted with a sodium of 168; potassium was normal at 4.8, chlorides 132 and CO2 is 31. BUN was 58 with a creatinine of 1.8 with repeat this morning of 65 and 2. Daughter was at bedside. She stated she saw her at the beginning of last week at which time she seemed to be more alert. She noted a definite decline with minimal response today. Patient was also noted to have a fever for which she was now receiving Tylenol suppositories. Patient did not respond to verbal or tactile stimulus. Hospital Course Hospital Course: After admission patient was continued with IV fluids which were adjusted according to electrolytes. She continued with antibiotics IV. While at [facility] she responded to pain and not to verbal or tactile stimuli. She was unable to eat, drink, or take any p.o. medications. She received Ativan for restlessness, morphine for pain, and had Zofran ordered for any vomiting. Laboratory data did improve and on 10/08/2021 white count had decreased from 21,500 to 12,400. Sodium stayed about the same with a decline only to 163 from 168. Renal function did not improve. BUN on 10/08/2021 revealed a BUN of 66 and a creatinine of 2.3. Patient was a hospice patient at [facility]. Hospice did visit with the patient 10/08/2021. Patient continued to decline with decrease in O2 sats despite 6 L of oxygen. Hospice [facility] did evaluate the patient and the decision was made with the daughter to discharge her to the hospice care center in [place] today. Patient to be discharged to the hospice center in [place]. Condition at transfer is guarded and terminal. Follow-up, medication and additional orders as per hospice. Objective Vital signs: Temp Pulse Resp BP Pulse Ox 100.2 F H 89 22 109/36 L 86 L 10/08/21 08:00 10/08/21 08:00 10/08/21 08:00 10/08/21 08:00 10/08/21 08:00 Narrative: Exam Vital signs and Labs for Last 24 Hours: Temp Pulse Resp BP Pulse Ox 99.9 F H 81 16 152/59 H 86 L 10/07/21 20:00 10/07/21 20:00 10/07/21 20:00 10/07/21 20:00 10/07/21 20:00 Laboratory Results - last 24 hr 10/07/21 06:26: Total Counted 100, Neutrophils % (Manual) 88 H, Lymphocytes % (Manual) 9 L, Monocytes % (Manual) 3, Platelet Estimate Normal, RBC Morphology Normal 10/07/21 19:40: WBC 18.4 H D, RBC 3.92 L, Hgb 10.4 L, Hct 33.2 L, MCV 84.7, MCH 26.4 L, MCHC 31.2 L, RDW 15.3, Plt Count 304, MPV 10.3, Neut % (Auto) 89.1 H, Lymph % (Auto) 6.5 L, [place] % (Auto) 3.6, Eos % (Auto) 0.2, Baso % (Auto) 0.5, Neut # (Auto) 16.4 H, Lymph # (Auto) 1.2, [place] # (Auto) 0.7, Eos # (Auto) 0.0, Baso # (Auto) 0.1, Total Counted 100, Neutrophils % (Manual) 87 H, Lymphocytes % (Manual) 8 L, Monocytes % (Manual) 3, Eosinophils % (Manual) 1, Basophils % (Manual) 1.0, Platelet Estimate
--- NOTE | 2021-10-08 19:20 | PC.NURSE ---
patient left [facility] at this time.
--- NOTE | 2021-10-08 21:08 | PC.NURSE ---
late entry: critical lab values received at 0838 Na [address] Kuhn face to face at 0905
== END 2021-10-08 19:25 | disposition hospice, inpatient (51) | DRG 641 ==
LOC: ER 17:53 → 2ND 18:45
PROVIDERS: Nurse Practitioner Family; Admitting Provider Family Medicine; Emergency Provider Emergency Medicine; PCP Family Medicine; Visit Provider Family Medicine
DX: E86.0 Dehydration (principal); E46 Unspecified protein-calorie malnutrition; Z68.1 Body mass index [BMI] 19.9 or less, adult; E87.0 Hyperosmolality and hypernatremia; K11.20 Sialoadenitis, unspecified; I65.29 Occlusion and stenosis of unspecified carotid artery; F41.9 Anxiety disorder, unspecified; I11.0 Hypertensive heart disease with heart failure; Z51.5 Encounter for palliative care; I50.9 Heart failure, unspecified; J44.9 Chronic obstructive pulmonary disease, unspecified; F32.A Depression, unspecified; K21.9 Gastro-esophageal reflux disease without esophagitis; E78.5 Hyperlipidemia, unspecified; E03.9 Hypothyroidism, unspecified; M81.0 Age-related osteoporosis without current pathological fracture; Z96.651 Presence of right artificial knee joint; F17.210 Nicotine dependence, cigarettes, uncomplicated; I73.9 Peripheral vascular disease, unspecified; F03.90 Unspecified dementia, unspecified severity, without behavioral disturbance, psychotic disturbance, mood disturbance, and anxiety
CPT/HCPCS: 36415; 70490; 76536; 80048; 80053; 83605; 85007; 85025; 87040; 99285; C9803; U0003; U0005